=== PATIENT | female | born 1935 | race Caucasian/White ===

== ENCOUNTER 2016-06-19 10:53 | Inpatient (IN) | payer OTHER, MEDICARE ==
[~2016-06-19] VITALS: Ht 152.4 cm; Wt 62.0 kg
[~2016-06-19 10:53] MED LIST: ACET160S78 PEG; FERR220E9 PEG; NUTR1.2L PEG; NXM/40 PEG; ZLF/100 PEG; ZNTL PEG; [UNRECOGNIZED DRUG - CODE] PEG
--- NOTE | 2016-06-19 11:48 | DIAGNOSTIC IMAGING REPORT ---
SINGLE VIEW CHEST CLINICAL HISTORY: Sepsis. FINDINGS: An AP, portable, upright chest radiograph is compared to study dated 08/05/2015. The examination is severely degraded by portable technique and patient rotation. The heart is mildly enlarged and there is atherosclerotic calcification of the thoracic aorta. There is pulmonary vascular congestion. Chronic elevation right hemidiaphragm and bibasilar atelectasis are similar to previous. Foci of linear atelectasis versus scarring are seen in the left midlung. No large pleural effusion or pneumothorax is seen. The skeletal structures are osteopenic. Chronic posttraumatic deformity and postoperative change are identified in the left humerus. Degenerative change is also seen in the shoulders. A ventriculoperitoneal shunt catheter traverses the right hemithorax. IMPRESSION: 1. Cardiomegaly with evidence of mild congestive failure. 2. There is no airspace consolidation typical for pneumonia or large pleural effusion. Electronically signed by: Gaetano Pike M.D. 06/19/2016 11:46 AM Dictated Date/Time: 06/19/2016 11:44 AM
[2016-06-19 11:50] LABS: MEAN CORPUSCULAR HGB CONC 32.1 g/dl (32-36)
[2016-06-19 11:58] LABS: HEMATOCRIT 38.3 % (37-47); MEAN CELL VOLUME 81.1 fL (80-100); MEAN CORPUSCULAR HEMOGLOBIN 26.1 pg (25-34); RED BLOOD COUNT 4.72 M/uL (4.2-5.4)
[2016-06-19 12:08] LABS: PLATELET COUNT 108 K/uL (130-400)
[2016-06-19 12:09] LABS: BUN/CREATININE RATIO 47.7 (10-20); CALCIUM 8.9 mg/dl (8.5-10.1); CREATININE 0.48 mg/dl (0.60-1.20); POTASSIUM 3.6 mmol/L (3.5-5.1)
[2016-06-19 12:10] LABS: INR 1.2 (0.9-1.1); PARTIAL THROMBOPLASTIN RATIO 1.1; PROTHROMBIN TIME (PATIENT) 13.2 SECONDS (9.0-12.0)
[2016-06-19 12:11] LABS: BASO % 0.2 %; BASO ABS # 0.02 K/uL (0-0.2); COMPLETE YES; EOS % 0.1 %; IG% 0.8 %; LYMPH % 5.2 %; LYMPH ABS # 0.53 K/uL (1.2-3.4); MONO % 4.1 %; NEUT % 89.6 %; OVALOCYTES 1+; PLT ESTIMATE DECREASED
[2016-06-19 12:12] LABS: ALB/GLOB RATIO 1.1 (0.9-2)
--- NOTE | 2016-06-19 12:21 | DIAGNOSTIC IMAGING REPORT ---
CT SCAN OF THE BRAIN WITHOUT IV CONTRAST CLINICAL HISTORY: Change in mental status. COMPARISON STUDY: Prior CT scans of the brain, most recently dated 07/07/2015. TECHNIQUE: Unenhanced axial CT scan of the brain is performed from the vertex to the skull base. The examination is significantly degraded by motion artifact. The skull base was scanned twice. FINDINGS: Brain parenchyma: A right posterior parietal approach ventricular shunt catheter is unchanged in position. The tip terminates in the frontal horn of the left lateral ventricle. There are age-related involutional changes noting advanced confluent subcortical and periventricular microangiopathic change. A calcified mass lesion at the skull base on the right at the level of the foramen magnum is unchanged and measures 2.8 x 2.8 cm. This causes mass effect on the adjacent brainstem. Right cerebellar encephalomalacia is unchanged. There is no hemorrhage or evidence of acute territorial ischemia by CT criteria. Yin-white matter is preserved. No extra-axial fluid collection is seen. Ventricles, sulci, cisterns: Prominent secondary to involutional change. Intracranial vasculature: There is atherosclerotic calcification of the cavernous carotid and vertebral arteries. Calvarium: A right posterior parietal jose hole is noted. Again seen are changes from occipital craniectomy. Sinuses and mastoids: Air-fluid levels are noted in the sphenoid sinuses and the maxillary antra. The remaining visualized paranasal sinuses are clear. There is a right mastoid effusion. The left mastoid air cells are well pneumatized. Orbits: The bony orbits are grossly intact. IMPRESSION: 1. Motion degraded examination. There has been no significant change from the 07/07/2015 examination. 2. Postoperative changes as above with a right posterior parietal approach ventriculostomy catheter that is unchanged in position. Ventricular caliber is stable. 3. Unchanged appearance of a calcified mass lesion at the right skull base at the level of the foramen magnum causing mass effect on the adjacent brainstem. This is consistent with patient's known meningioma. 4. Senescent changes as above with no hemorrhage, mass effect, or evidence of acute territorial ischemia by CT criteria. 5. Right mastoid effusion. 6. Air-fluid levels are seen in the maxillary and sphenoid sinuses. Electronically signed by: Gaetano Pike M.D. 06/19/2016 12:20 PM Dictated Date/Time: 06/19/2016 12:16 PM
[2016-06-19] MEDS ORDERED: FUROSEMIDE 40 MG/4 ML VIAL IV STA (12:34)
[2016-06-19] MEDS ORDERED: ALBUT/IPRATROP 3MG/0.5MG NEB 3 ML VIAL INH STA (12:38)
--- NOTE | 2016-06-19 12:43 | DIAGNOSTIC IMAGING REPORT ---
CT SCAN OF THE ABDOMEN AND PELVIS WITHOUT IV CONTRAST CLINICAL HISTORY: Generalized abdominal pain. Abdominal distention and fever. COMPARISON STUDY: Abdominal CT dated 08/24/2014. TECHNIQUE: CT scan of the abdomen and pelvis is performed from the lung bases to the proximal femora. Images are reviewed in the axial, sagittal, and coronal planes. IV contrast was not administered for this examination as per the referring clinician. Note that the examination was performed in significantly suboptimal fashion without oral and IV contrast. The examination is also degraded by motion as well as streak artifact from the patient's arms which could not be elevated above the abdomen. Automated dose control exposure was utilized. CT DOSE: 1592.33 mGy.cm FINDINGS: Lung bases: The heart is normal in size and there is trace pericardial effusion. The coronary arteries and mitral annulus are densely calcified. There is diminished attenuation of the cardiac blood pool as compared to the myocardium suggesting anemia. Evaluation of the lung bases is degraded by motion artifact. There is a trace left pleural effusion. Bilateral airspace opacities are identified, left to right. This is similar appearance to the 08/24/2014 examination. There is chronic elevation of the left hemidiaphragm. There is a small to moderate hiatal hernia. Liver: The unenhanced liver is normal in size, contour, and attenuation. There is no intrahepatic biliary ductal dilatation. Gallbladder: Calcified gallstones are identified. Spleen: Normal in size and attenuation. Pancreas: Atrophic and grossly unremarkable. Adrenal glands: Unremarkable. Kidneys: The unenhanced kidneys are atrophic and without hydronephrosis. Staghorn calculus in the left kidney is unchanged from 2015. No right renal calculi are seen. A 4.5 cm cyst is noted in the right kidney. A 2.3 cm exophytic cyst arises from the left lower pole. Abdominal vasculature: There is advanced atherosclerotic calcification and ectasia of the abdominal aorta. Bowel: A percutaneous gastrostomy tube is present in the distal stomach/proximal duodenum. No bowel obstruction is seen. There is rectosigmoid fecal impaction. Mild rectal wall thickening is noted and there is mild perirectal stranding. There is moderate diverticulosis of left colon without CT evidence of acute diverticulitis. The appendix is clearly visualized. Peritoneum: There is no intraperitoneal free air or abdominal ascites. A ventriculoperitoneal shunt catheter is coiled in the right upper quadrant. Lymphadenopathy: None. Pelvic viscera: Layering hyperdense material within the bladder likely represents numerous stones. The bladder wall appears slightly trabeculated. The uterus is surgically absent. No adnexal lesion is seen. A small fat-containing left inguinal hernia is identified. Skeletal structures: The skeletal structures are markedly osteopenic. There is moderate lumbosacral spondylosis. Compression deformities are seen at all levels from T9 through L4. No lytic or blastic lesions are seen. IMPRESSION: 1. Significant suboptimal examination without oral and IV contrast. The examination is also degraded by streak and motion artifact. 2. There is rectosigmoid fecal impaction. Mild perirectal stranding is noted. Correlate clinically for evidence of stercoral proctitis. 3. Moderate colonic diverticulosis without CT evidence of acute diverticulitis. 4. There is a trace left pleural effusion and bibasilar airspace opacities. These are similar to the 2015 examination. This could represent chronic scarring/fibrosis versus an infectious/inflammatory pneumonitis. Clinical correlation will be required. 5. A ventriculoperitoneal shunt catheter is coiled in the right upper quadrant. 6. Cholelithiasis. 7. A staghorn calculus is seen in the left kidney. Layering hyperdense debris within the bladder lumen likely represents numerous calculi, and these findings are unchanged from 2015. 8. Additional changes as above. Electronically signed by: Gaetano Pike M.D. 06/19/2016 12:42 PM Dictated Date/Time: 06/19/2016 12:28 PM
[2016-06-19 13:01] LABS: URINE APPEARANCE CLOUDY (CLEAR); URINE BILIRUBIN NEG (NEG); URINE COLOR YELLOW; URINE EPITHELIAL CELL AUTO >30 /lpf (0-5); URINE NITRITE POS (NEG); URINE PH 7.5 (4.5-7.5); URINE SPECIFIC GRAVITY 1.016 (1.000-1.030); UROBILINOGEN NEG (NEG); ZZURINE CULT IF INDIC CATH YES
[2016-06-19 13:07] LABS: MANUAL MICROSCOPIC REQUIRED? NO; REVIEW REQ? YES
[2016-06-19 13:08] LABS: SULFASALICYLIC ACID POS (NEG)
[2016-06-19] MEDS ORDERED: PIPERACILLIN/TAZOBACTAM 4.5 GM/100ML D5W IV STA (13:09)
--- NOTE | 2016-06-19 14:44 | EMERGENCY ROOM VISIT NOTE ---
History Report prepared by Lorenzo: Abbey Uriarte Under the Supervision of: Dr. Chris Hebert M.D. First contact with patient: 11:09 Chief Complaint: RESPIRATORY PROBLEMS Stated Complaint: TROUBLE BREATHING History of Present Illness The patient is an 80 year old female who presents to the Emergency Room with complaints of persistent respiratory problems that began today. Per the patient 's daughter, the patient has a history of a brain tumor and has been aphasic for the past year. She states that the patient had a surgery in 1998 for the brain tumor. The patient's daughter states that she had another surgery in 2004 that did not go well. She states that the patient has been bedridden since that surgery. The patient's daughter notes that the patient occasionally wiggles her toes, but does not move her limbs any further. She notes that the patient has had labored breathing today. The patient's daughter notes that all day yesterday the patient had a fever of 102 degrees Fahrenheit and was less responsive than normal. She states that typically the patient has her eyes open , but states that the patient's eyes have been closed. The patient's daughter notes that the patient has had a low-grade fever today of 100.3 degrees Fahrenheit. She states that the patient has had an increased cough, but states that when she has suctioned the patient's mouth she didn't bring much up. The patient's daughter denies the patient having any recent sick contacts. She additionally voices concern regarding the patient's abdominal distension. The patient's daughter notes that the patient has a history of arthritis and COPD, and states that the patient was a previous smoker. She states that the patient receives breathing treatment four times per day and states that the patient is on 2.5 mg of Prednisone daily. The patient's daughter states that the patient urinates on her own. She additionally notes that the patient wears 2 liters of supplemental oxygen daily. Source of History: family (daughter) History Limited By: other (Aphasia) Onset: today Position: other (global) Quality: other (respiratory problems) Timing: other (persistent) Associated Symptoms: + cough, + fevers Note: Associated Symptoms: abdominal distension. Review of Systems Limited due to aphasia. Past Medical & Surgical Medical Problems: (1) BRAIN NEOPLASM NOS (2) CYST OF KIDNEY, ACQUIRED (3) ESOPHAGEAL REFLUX (4) G tube feedings (5) HYPERTENSION NOS (6) IRON DEFIC ANEMIA NOS Family History Diabetes mellitus Social History Smoking Status: Former Smoker Alcohol Use: none Drug Use: none Marital Status: Housing Status: lives with family Occupation Status: retired, disabled Current/Historical Medications Scheduled Esomeprazole Magnesium (Nexium), 40 MG PEG BID Ferrous Sulfate (Ferrous Sulfate), 5 ML PEG BID Prednisolone Sod Phos (Prednisolone Sodium Phosp), 2.5 ML PEG QAM Ranitidine HCl (Ranitidine HCl), 20 ML PEG HS Sertraline HCl (Sertraline HCl), 100 MG PEG QAM Allergies Coded Allergies: Fluconazole (Verified Allergy, Intermediate, ?RASH-PT ALSO ON VANCO, ) Vancomycin (Verified Adverse Reaction, Intermediate, ?RASH,?JESSE SYNDROME-PT ALSO ON DIFLUCAN, 06/19/16) Physical Exam Vital Signs Date Time Temp Pulse Resp B/P Pulse Ox O2 Delivery O2 Flow Rate FiO2 06/19/16 13:35 86 22 190/97 92 Nasal Cannula 3.0 06/19/16 12:36 91 Nasal Cannula 4.0 06/19/16 12:35 89 Nasal Cannula 2.0 06/19/16 12:27 83 22 201/107 93 Nasal Cannula 2.0 06/19/16 11:37 87 06/19/16 11:14 97 Nasal Cannula 2.0 06/19/16 11:11 97 Nasal Cannula 2.0 06/19/16 10:58 36.9 90 24 184/98 94 Room Air Physical Exam Limited examination due to condition of the patient. Constitutional: Vital signs reviewed. Eyes: The patient will not open her eyes. Unable to open her eyes and visualize pupils. ENT: Mucous membranes are slightly dry. Respiratory: Scattered rhonchi bilaterally. Breath sounds are equal bilaterally. Cardiovascular: Regular rate and rhythm. No rubs or gallops. GI: Soft, nondistended and nontender. Bowel sounds are present. Musculoskeletal: Contractures. Integumentary: No cyanosis. Neurological: The patient does not respond to commands. Contractures in the extremities. Psychiatric: Unable to assess. Medical Decision & Procedures ER Provider Diagnostic Interpretation: Radiology results as stated below per my review and the radiologist's interpretation: CT SCAN OF THE BRAIN WITHOUT IV CONTRAST CLINICAL HISTORY: Change in mental status. COMPARISON STUDY: Prior CT scans of the brain, most recently dated 07/07/2015. TECHNIQUE: Unenhanced axial CT scan of the brain is performed from the vertex to the skull base. The examination is significantly degraded by motion artifact. The skull base was scanned twice. FINDINGS: Brain parenchyma: A right posterior parietal approach ventricular shunt catheter is unchanged in position. The tip terminates in the frontal horn of the left lateral ventricle. There are age-related involutional changes noting advanced confluent subcortical and periventricular microangiopathic change. A calcified mass lesion at the skull base on the right at the level of the foramen magnum is unchanged and measures 2.8 x 2.8 cm. This causes mass effect on the adjacent brainstem. Right cerebellar encephalomalacia is unchanged. There is no hemorrhage or evidence of acute territorial ischemia by CT criteria. Yin-white matter is preserved. No extra-axial fluid collection is seen. Ventricles, sulci, cisterns: Prominent secondary to involutional change. Intracranial vasculature: There is atherosclerotic calcification of the cavernous carotid and vertebral arteries. Calvarium: A right posterior parietal jose hole is noted. Again seen are changes from occipital craniectomy. Sinuses and mastoids: Air-fluid levels are noted in the sphenoid sinuses and the maxillary antra. The remaining visualized paranasal sinuses are clear. There is a right mastoid effusion. The left mastoid air cells are well pneumatized. Orbits: The bony orbits are grossly intact. IMPRESSION: 1. Motion degraded examination. There has been no significant change from the 07/07/2015 examination. 2. Postoperative changes as above with a right posterior parietal approach ventriculostomy catheter that is unchanged in position. Ventricular caliber is stable. 3. Unchanged appearance of a calcified mass lesion at the right skull base at the level of the foramen magnum causing mass effect on the adjacent brainstem. This is consistent with patient's known meningioma. 4. Senescent changes as above with no hemorrhage, mass effect, or evidence of acute territorial ischemia by CT criteria. 5. Right mastoid effusion. 6. Air-fluid levels are seen in the maxillary and sphenoid sinuses. Electronically signed by: Gaetano Pike M.D. 06/19/2016 12:20 PM Dictated Date/Time: 06/19/2016 12:16 PM SINGLE VIEW CHEST CLINICAL HISTORY: Sepsis. FINDINGS: An AP, portable, upright chest radiograph is compared to study dated 08/05/2015. The examination is severely degraded by portable technique and patient rotation. The heart is mildly enlarged and there is atherosclerotic calcification of the thoracic aorta. There is pulmonary vascular congestion. Chronic elevation right hemidiaphragm and bibasilar atelectasis are similar to previous. Foci of linear atelectasis versus scarring are seen in the left midlung. No large pleural effusion or pneumothorax is seen. The skeletal structures are osteopenic. Chronic posttraumatic deformity and postoperative change are identified in the left humerus. Degenerative change is also seen in the shoulders. A ventriculoperitoneal shunt catheter traverses the right hemithorax. IMPRESSION: 1. Cardiomegaly with evidence of mild congestive failure. 2. There is no airspace consolidation typical for pneumonia or large pleural effusion. Electronically signed by: Gaetano Pike M.D. 06/19/2016 11:46 AM Dictated Date/Time: 06/19/2016 11:[address] SCAN OF THE ABDOMEN AND PELVIS WITHOUT IV CONTRAST CLINICAL HISTORY: Generalized abdominal pain. Abdominal distention and fever. COMPARISON STUDY: Abdominal CT dated 08/24/2014. TECHNIQUE: CT scan of the abdomen and pelvis is performed from the lung bases to the proximal femora. Images are reviewed in the axial, sagittal, and coronal planes. IV contrast was not administered for this examination as per the referring clinician. Note that the examination was performed in significantly suboptimal fashion without oral and IV contrast. The examination is also degraded by motion as well as streak artifact from the patient's arms which could not be elevated above the abdomen. Automated dose control exposure was utilized. CT DOSE: 1592.33 mGy.cm FINDINGS: Lung bases: The heart is normal in size and there is trace pericardial effusion. The coronary arteries and mitral annulus are densely calcified. There is diminished attenuation of the cardiac blood pool as compared to the myocardium suggesting anemia. Evaluation of the lung bases is degraded by motion artifact. There is a trace left pleural effusion. Bilateral airspace opacities are identified, left to right. This is similar appearance to the 08/24/2014 examination. There is chronic elevation of the left hemidiaphragm. There is a small to moderate hiatal hernia. Liver: The unenhanced liver is normal in size, contour, and attenuation. There is no intrahepatic biliary ductal dilatation. Gallbladder: Calcified gallstones are identified. Spleen: Normal in size and attenuation. Pancreas: Atrophic and grossly unremarkable. Adrenal glands: Unremarkable. Kidneys: The unenhanced kidneys are atrophic and without hydronephrosis. Staghorn calculus in the left kidney is unchanged from 2015. No right renal calculi are seen. A 4.5 cm cyst is noted in the right kidney. A 2.3 cm exophytic cyst arises from the left lower pole. Abdominal vasculature: There is advanced atherosclerotic calcification and ectasia of the abdominal aorta. Bowel: A percutaneous gastrostomy tube is present in the distal stomach/proximal duodenum. No bowel obstruction is seen. There is rectosigmoid fecal impaction. Mild rectal wall thickening is noted and there is mild perirectal stranding. There is moderate diverticulosis of left colon without CT evidence of acute diverticulitis. The appendix is clearly visualized. Peritoneum: There is no intraperitoneal free air or abdominal ascites. A ventriculoperitoneal shunt catheter is coiled in the right upper quadrant. Lymphadenopathy: None. Pelvic viscera: Layering hyperdense material within the bladder likely represents numerous stones. The bladder wall appears slightly trabeculated. The uterus is surgically absent. No adnexal lesion is seen. A small fat-containing left inguinal hernia is identified. Skeletal structures: The skeletal structures are markedly osteopenic. There is moderate lumbosacral spondylosis. Compression deformities are seen at all levels from T9 through L4. No lytic or blastic lesions are seen. IMPRESSION: 1. Significant suboptimal examination without oral and IV contrast. The examination is also degraded by streak and motion artifact. 2. There is rectosigmoid fecal impaction. Mild perirectal stranding is noted. Correlate clinically for evidence of stercoral proctitis. 3. Moderate colonic diverticulosis without CT evidence of acute diverticulitis. 4. There is a trace left pleural effusion and bibasilar airspace opacities. These are similar to the 2015 examination. This could represent chronic scarring/fibrosis versus an infectious/inflammatory pneumonitis. Clinical correlation will be required. 5. A ventriculoperitoneal shunt catheter is coiled in the right upper quadrant. 6. Cholelithiasis. 7. A staghorn calculus is seen in the left kidney. Layering hyperdense debris within the bladder lumen likely represents numerous calculi, and these findings are unchanged from 2015. 8. Additional changes as above. Electronically signed by: Gaetano Pike M.D. 06/19/2016 12:42 PM Dictated Date/Time: 06/19/2016 12:28 PM Laboratory Results 06/19/16 11:25 Red Blood Count 4.72, Mean Corpuscular Volume 81.1, Mean Corpuscular Hemoglobin 26.1, Mean Corpuscular Hemoglobin Concent 32.1, Neutrophils (%) (Auto) 89.6, Lymphocytes (%) (Auto) 5.2, Monocytes (%) (Auto) 4.1, Eosinophils (%) (Auto) 0.1 , Basophils (%) (Auto) 0.2, Neutrophils # (Auto) 9.14, Lymphocytes # (Auto) 0.53 , Monocytes # (Auto) 0.42, Eosinophils # (Auto) 0.01, Basophils # (Auto) 0.02 06/19/16 11:25 Test 06/19/16 11:25 06/19/16 11:29 06/19/16 11:31 06/19/16 11:45 White Blood Count 10.20 K/uL (4.8-10.8) Red Blood Count 4.72 M/uL (4.2-5.4) Hemoglobin 12.3 g/dL (12.0-16.0) Hematocrit 38.3 % (37-47) Mean Corpuscular Volume 81.1 fL (80-100) Mean Corpuscular Hemoglobin 26.1 pg (25-34) Mean Corpuscular Hemoglobin Concent 32.1 g/dl (32-36) Platelet Count 108 K/uL (130-400) Neutrophils (%) (Auto) 89.6 % Lymphocytes (%) (Auto) 5.2 % Monocytes (%) (Auto) 4.1 % Eosinophils (%) (Auto) 0.1 % Basophils (%) (Auto) 0.2 % Neutrophils # (Auto) 9.14 K/uL (1.4-6.5) Lymphocytes # (Auto) 0.53 K/uL (1.2-3.4) Monocytes # (Auto) 0.42 K/uL (0.11-0.59) Eosinophils # (Auto) 0.01 K/uL (0-0.5) Basophils # (Auto) 0.02 K/uL (0-0.2) RDW Standard Deviation 53.8 fL (36.4-46.3) RDW Coefficient of Variation 18.1 % (11.5-14.5) Immature Granulocyte % (Auto) 0.8 % Immature Granulocyte # (Auto) 0.08 K/uL (0.00-0.02) Platelet Estimate DECREASED Ovalocytes 1+ Prothrombin Time 13.2 SECONDS (9.0-12.0) Prothromb Time International Ratio 1.2 (0.9-1.1) Activated Partial Thromboplast Time 27.6 SECONDS (21.0-31.0) Partial Thromboplastin Ratio 1.1 Anion Gap 5.0 mmol/L (3-11) Est Creatinine Clear Calc Drug Dose 80.0 ml/min Estimated GFR () 105.9 Estimated GFR (Non- 91.4 BUN/Creatinine Ratio 47.7 (10-20) Calcium Level 8.9 mg/dl (8.5-10.1) Total Bilirubin 0.8 mg/dl (0.2-1) Aspartate Amino Transf (AST/SGOT) 12 U/L (15-37) Alanine Aminotransferase (ALT/SGPT) 23 U/L (12-78) Alkaline Phosphatase 96 U/L (45-117) Total Protein 6.8 gm/dl (6.4-8.2) Albumin 3.5 gm/dl (3.4-5.0) Globulin 3.3 gm/dl (2.5-4.0) Albumin/Globulin Ratio 1.1 (0.9-2) Bedside Lactic Acid Venous 1.14 mmol/L (0.90-1.70) Bedside Troponin I 0.000 ng/ml (0-0.045) HC-Ipn-Z-Type Natriuretic Peptide 1988 pg/ml (0-1800) Influenza Type A Antigen Neg for Influ A (NEG) Influenza Type B Antigen Neg for Influ B (NEG) Test 06/19/16 12:23 Urine Color YELLOW Urine Appearance CLOUDY (CLEAR) Urine pH 7.5 (4.5-7.5) Urine Specific [place] 1.016 (1.000-1.030) Urine Protein 1+ (NEG) Urine Glucose (UA) NEG (NEG) Urine Ketones NEG (NEG) Urine Occult Blood 3+ (NEG) Urine Nitrite POS (NEG) Urine Bilirubin NEG (NEG) Urine Urobilinogen NEG (NEG) Urine Leukocyte Esterase MODERATE (NEG) Urine WBC (Auto) 1-5 /hpf (0-5) Urine RBC (Auto) 10-30 /hpf (0-4) Urine Hyaline Casts (Auto) 1-5 /lpf (0-5) Urine Epithelial Cells (Auto) >30 /lpf (0-5) Urine Bacteria (Auto) 4+ (NEG) Urine Renal Epithelial Cells /lpf (0-5) Urine Yeast (Auto) (NONE PRSENT) Laboratory results as reviewed by me. Medications Administered Medications (Trade) Dose Ordered Sig/Lena Route Start Time Stop Time Status Last Admin Dose Admin Furosemide (Lasix Inj) 40 mg NOW STAT IV 06/19/16 12:34 06/19/16 12:36 DC 06/19/16 12:43 40 MG Albuterol/ Ipratropium (Duoneb) 3 ml NOW STAT INH 06/19/16 12:38 06/19/16 12:39 DC 06/19/16 12:44 3 ML Piperacillin Sod/ Tazobactam Sod (Zosyn Iv) 4.5 gm NOW STAT IV 06/19/16 13:09 06/19/16 13:10 DC 06/19/16 13:29 4.5 GM ECG Indication: SOB/dyspnea Rate (beats per minute): 87 Rhythm: normal sinus Findings: nonspecific-ST abn (Lead 1 and AVL), no ectopy ED Course 1111: The patient was evaluated in room C3. A complete history and physical exam was performed. 1234: Ordered Lasix Inj 40 mg IV. 1237: I reevaluated the patient and she de-statted to 89% on 2L. She was placed on 4L at this time. 1238: Ordered Duoneb 3 ml INH. 1304: Per nursing staff, the patients family does not wish for the patient to stay in the hospital for further evaluation because they are worried about the care she is going to receive. I am going to talk to the patients family. 1309: I reevaluated the patient and I talked to the family at this time. They agreed to the patient to be evaluated for further treatment. Ordered Zosyn IV 4.5 gm IV. 1326: I discussed the patients case with Dr. Henry [facility]. He is going to evaluate the patient for further treatment. Medical Decision This is an 80-year-old female who presents with altered mental status, fever and difficulty breathing. Differential diagnosis includes sepsis, pneumonia, COPD exacerbation, UTI, intracranial hemorrhage, metabolic derangement. I did perform a limited focused review of portions of the patient's old chart on the electronic medical record. The patient has had no recent pertinent visits to this hospital. I did evaluate the patient as noted above. I did obtain history from the patient's family due to her chronic aphasia. She is presenting with increased difficulty breathing today as well as fevers up to 102. She has been coughing. IV access was established. The patient was placed on a continuous cardiac surgeon. I did treat her with a DuoNeb. I did order and personally review the patient's 12-lead EKG and chest x-ray as described above. She appears to have CHF on chest x-ray but no signs of pneumonia. I did treat her with Lasix IV. Blood cultures were ordered. I did order and review the patient's blood work as noted in the electronic medical record. Her BNP is elevated. Troponin is negative. I did order a CT of the head, abdomen and pelvis. I did review the images myself as well as the radiology report as described above. She does have constipation as well as bibasilar infiltrates in the lower lungs. Her urinalysis shows signs of infection. A urine culture was sent. I did treat the patient with IV Zosyn. I did discuss the test results with the patient's family. Her rhonchi improved but her oxygen level was only 89% on 2 L. She did respond to 4 L. I did recommend hospitalization for further care and evaluation. I did discuss the case with the hospitalist and watch case polisher. Consults Time Called: 1314 Consulting Physician: MARIEL Gonzalez Returned Call: 1326 I discussed the patients case with MARIEL Gonzalez. He is going to evaluate the patient for further treatment. Impression Primary Impression: Hypoxia Additional Impressions: CHF (congestive heart failure) UTI (urinary tract infection) Constipation Pneumonia Scribe Attestation The scribe's documentation has been prepared under my direct and personally reviewed by me in its entirety. I confirm that the note above accurately reflects all work, treatment, procedures, and medical decision making performed by me. Departure Information Dispostion Being Evaluated By Hospitalist Referrals Marcell Arellano PA-C (PCP) Problem Qualifiers Additional Impressions: CHF (congestive heart failure) Congestive heart failure type: unspecified congestive heart failure type Congestive heart failure chronicity: unspecified congestive heart failure chronicity Qualified Codes: I50.9 - Heart failure, unspecified UTI (urinary tract infection) Urinary tract infection type: site unspecified Hematuria presence: without hematuria Qualified Codes: N39.0 - Urinary tract infection, site not specified Constipation Constipation type: unspecified constipation type Qualified Codes: K59.00 - Constipation, unspecified Pneumonia Pneumonia type: due to unspecified organism Laterality: bilateral Lung location: unspecified part of lung Qualified Codes: J18.9 - Pneumonia, unspecified organism
[2016-06-19] MEDS ORDERED: ONDANSETRON INJ 2 MG/ML 2 ML VIAL IV PRN (15:00)
[2016-06-19] MEDS ORDERED: POLYETHYLENE (MIRALAX) 17 GM PACK PO PRN (15:00)
[2016-06-19] MEDS ORDERED: ACETAMINOPHEN 325 MG TAB PO PRN (15:00)
--- NOTE | 2016-06-19 15:16 | History and Physical ---
History & Physical Date of Service Jun 19, 2016. History & Physical uti, possible mild sepsis chf exac has consult palliative for goal of care, and POLST [id number]
[2016-06-19] MEDS ORDERED: PIPERACILL/TAZOBAC CONSULT ACTIVE PRN (15:30)
--- NOTE | 2016-06-19 16:23 | HISTORY & PHYSICAL EXAMINATION ---
DATE OF ADMISSION: 06/19/2016 This is a level 3 inpatient admission, 35 minutes. CHIEF COMPLAINT: Lethargic, More difficulty breathing, fever. 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 Per family, the patient has been paralyzed more than 11 years secondary to meningioma. She has been bedridden, nonverbal conditions. She was able to open eyes 2 days ago, for now she is not open eyes, she was having fever of home, more labored breathing, there was wheezing, therefore the family send her to the hospital Emergency Room. The medical information and history is obtained from daughter and granddaughter at the bedside. They report used to occasionally wiggles her toes but does not move her limbs any further. Family found the more labored breathing today. Fever up to 102 yesterday, has been less responsive for more than 2 days. Recently has been increased cough but there is no emesis. No sputum coming up. The patient has chronic incontinence, family do not want to be on Pepe catheter at home. They are concerned about abdominal distention, no bowel movement for 2 days. In the Emergency Room, the patient was found to have possible CHF exacerbation with an elevated BNP and mild lung congestions per chest x-ray. When I interviewed with the patient, the patient was unresponsive, nonverbal, closed her eyes, mild labored breathing, oxygen is on, not able to have review of systems, with help of the family the review of systems is also very limited, like I mentioned she was having fever of home, no emesis or vomiting, PEG tube feeding has been going on, has no issues, reported has constipation, family did report emesis x3 with blood vomitus about several weeks ago. No more emesis of the bloody vomitus for 2 or 3 weeks, family also reported has some mucus discharge from possible vagina, no blood. PAST MEDICAL HISTORY: Like I mentioned in the above, also includes meningioma with removal in 1998 and recurrence in 2004 which was unable to remove, remote history of diabetic, currently on PEG tube feeding, history of aspiration pneumonitis, history of left humerus fracture, spastic quadriplegia. PAST SURGICAL HISTORY: Include hysterectomy, recurrent UTI, left staghorn calculus. ALLERGIES: ALLERGY TO FLUCONAZOLE AND VANCOMYCIN, SOCIAL HISTORY: Taken care by several family members, quit smoking in 2004, not have any bedsores. FAMILY HISTORY: Noncontributory REVIEW OF SYSTEMS: Please see HPI. Like I mentioned in the above. CURRENT MEDICATIONS: Taking at home which includes 1. Nexium 40 mg per PEG tube b.i.d. 2. Ferrous sulfate 5 mL per PEG tube b.i.d. 3. Prednisolone sodium 2.5 mL p.o. q.a.m. 4. Ranitidine 20 mL p.o. per PEG tube at bedtime. 5. Sertraline 100 mg per PEG tube q.a.m. PHYSICAL EXAMINATION: VITAL SIGNS: Temperature is 36.9, pulse 98, respiration rate 24 initially, currently is 24; blood pressure 184/98, currently is 190/97. Oxygen saturation is 92% on 3 liter. Vital signs reviewed. GENERAL: No open eyes, looks frail, nonverbal, unresponsive. When I open her eyes pupils was equal, round and responds to light. ENT: Shows mucous membranes mild dry. LUNGS: Bilateral lung there was scattered rhonchi bilaterally, breathing sounds equally. There was dry crackles bilateral lower lung. HEART: Regular rhythm, S1, S2, has no murmur, no gallop. ABDOMEN: Soft, nontender. Bowel sound was positive. SKIN: There was contractures in upper and lower extremities. There was no cyanosis in the skin, NEUROLOGICAL EVALUATION: Does not respond to commands. There was contracture in the lower extremities. PSYCHIATRY: Evaluation not able to assess. LABORATORY STUDIES: WBC 10, hemoglobin 12, platelet 108. PT/INR was 13/1.2. Sodium 141, potassium 3.6, BUN 23, creatinine 0.4. Calcium 8.9, AST 12, ALT 23. Troponin was negative. BNP was 61200. Total protein 6.8, albumin 3.5. UA shows UTI, moderate leukocyte esterase. Influenza A and B was negative. IMAGING STUDIES: 1. Abdominal CT studies which was done in the Emergency Room which shows a significant fecal impaction. Possible has stercoral proctitis. 2. Moderate chronic diverticulosis without CT evidence of diverticulitis. There was trace left pleural effusion and baseline airspace opacity. There was a PLASTER MECHANIC shunt catheter in normal position, in the right upper quadrant, there was cholelithiasis, staghorn calculus is seen in the left kidney. 3. Head CT was done in the Emergency Room the right posterior parietal approaches ventriculostomy catheter that is unchanged in position, unchanged appearance in calcified lesions at the right skull base. This is consistent with the patient's known meningioma. There was no hemorrhage, mass effect, or evidence of acute territorial ischemia by CT criteria. There was right mastoid effusion. ASSESSMENT AND PLAN: An 80-year-old white female with the conditions below: 1. Significant urinary tract infection with fever at home. Possible associated with mild sepsis. 2. Possible mild sepsis which is evidenced by the increased respiratory rate up to 24 , mentally decreased in functioning, and was reported has fever at home and there was no source of infection of urinary tract infection. 3. Possible metabolic encephalopathy with decreased mental status secondary to urinary tract infection. 4. Possible acute on chronic congestive heart failure with rhonchi and mild pulmonary congestion in the chest x-ray and elevated BNP levels. 5. History of chronic staghorn calculus. There was no evidence of renal failure or hydronephrosis. 6. Spastic paralysis due to meningioma. 7. Hydrocephalus history status post PLASTER MECHANIC shunt. 7. Feeding dysfunction, is on PEG tube feeding. PLAN: I discussed with the patient's daughter and granddaughter at the bedside about the care plan. Because of patient's age, and significant medical histories and poor and frail medical health conditions such as history of meningioma with spastic paralyzed and bedridden for more than 11 years, history of recurrent UTI, family request the goal of care will be supportive care, IV antibiotic, IV medication, continue PEG tube feeding, family do not want to have heroic medical invasive procedures such as surgery, scope, EGD, etc. Family requests do not resuscitation. Therefore based on the above conversation I will continue oxygen, Lasix daily, follow electrolytes, Pepe catheter if family agree, will continue Zosyn for UTI, and patient possibly has sepsis as well, will follow up blood culture and urine culture. For the GI prophylaxis will be Protonix, DVT prophylaxis will be heparin, family interested to talk to palliative care toward he direction of the hospice care. Therefore, I will request palliative care consultation. DNR MTDD
[2016-06-19] MEDS ORDERED: PANTOprazole INJ 40 MG in SYRINGE 0 ML IV ONE (17:00)
[2016-06-19 17:04] VITALS: BP 161/89; PULSE 80; TEMP 36.8; O2SAT 96; Ht 152.4 cm; Wt 62.0 kg
[2016-06-19] MEDS ORDERED: POLYETHYLENE (MIRALAX) 17 GM PACK PEG PRN (17:45)
[2016-06-19] MEDS ORDERED: POLYETHYLENE (MIRALAX) 17 GM PACK PO ONE (18:00)
[2016-06-19] MEDS ORDERED: DOCUSATE SODIUM 100 MG/10 ML UDC PEG ONE (18:00)
[2016-06-19] MEDS: ALBUT/IPRATROP 3MG/0.5MG NEB 3 ML VIAL INH SCH ×2 (18:05→19:04)
[2016-06-19 19:05] VITALS: PULSE 87; O2SAT 99
[2016-06-19 19:47] VITALS: BP 164/99; PULSE 89; TEMP 36.8; O2SAT 97
[2016-06-19 20:00] VITALS: O2SAT 95
[2016-06-19] MEDS: DOCUSATE SODIUM 100 MG/10 ML UDC PEG SCH (21:21)
[2016-06-19] MEDS: FERROUS SULFATE ELIX 220MG/5ML PEG SCH (21:21)
[2016-06-19] MEDS: RANITIDINE HCL SYRUP 150 MG/10 ML 480ML PO SCH (21:21)
[2016-06-19] MEDS: HEPARIN SOD 5000 UNIT/0.5 ML CARP SQ SCH (21:41)
[2016-06-19] MEDS: PIPERACILL/TAZOBAC IV 3.375 GM in DEXTROSE 5% 100ML 100 ML IV SCH (22:44)
[2016-06-19 23:37] VITALS: BP 146/84; PULSE 88; TEMP 37.7; O2SAT 100
[2016-06-20] VITALS (10 sets, daily range): BP systolic 132–153; BP diastolic 74–86; PULSE 72–86; TEMP 36.2–37.5; O2SAT 92–100
[2016-06-20 04:49] LABS: BUN/CREATININE RATIO 45.8 (10-20); CALCIUM 8.8 mg/dl (8.5-10.1); CREATININE 0.62 mg/dl (0.60-1.20); POTASSIUM 3.1 mmol/L (3.5-5.1)
[2016-06-20 04:54] LABS: CHOLESTEROL/HDL RATIO 3.5; CKMB/CK RATIO 2.3 (0-3.0)
[2016-06-20] MEDS: PIPERACILL/TAZOBAC IV 3.375 GM in DEXTROSE 5% 100ML 100 ML IV SCH ×3 (06:31→22:10)
[2016-06-20] MEDS: ALBUT/IPRATROP 3MG/0.5MG NEB 3 ML VIAL INH SCH ×4 (07:06→20:12)
[2016-06-20] MEDS: POTASSIUM CHLR 10 MEQ / WTR 10 MEQ in PREMIXED WATER 100 ML IV SCH ×4 (08:46→11:30)
[2016-06-20] MEDS: DOCUSATE SODIUM 100 MG/10 ML UDC PEG SCH ×2 (08:48→21:55)
[2016-06-20] MEDS: prednisoLONE SOD PHOS 5 MG/5 ML GT SCH (08:48)
[2016-06-20] MEDS: FERROUS SULFATE ELIX 220MG/5ML PEG SCH ×2 (08:48→21:55)
[2016-06-20] MEDS: SERTRALINE HCL 100 MG TAB PEG SCH (08:48)
[2016-06-20] MEDS: HEPARIN SOD 5000 UNIT/0.5 ML CARP SQ SCH ×2 (08:57→22:00)
[2016-06-20] MEDS ORDERED: FUROSEMIDE INJ 40 MG in SYRINGE 0 ML IV SCH (09:00)
[2016-06-20] MEDS: PANTOprazole INJ 40 MG in SYRINGE 0 ML IV SCH (10:56)
--- NOTE | 2016-06-20 11:25 | ECHOCARDIOGRAM REPORT ---
*NOTICE TO RECEIVING REPUBLICAN AGENCY This information is strictly Confidential and protected under [place] law. [place] law prohibits you from making any further disclosure of this information unless further disclosure is expressly permitted by the written consent of the person to whom it pertains or is authorized by law. A general authorization for the release of medical or other information is not sufficient for this purpose. Hospital accepts no responsibility if the information is made available to any other person, INCLUDING THE PATIENT. Interpretation Summary * Patient paralyzed, lying tilted to the right side with left arm folded tightly across her chest. * Name: LORAINE DUARTE Study Date: 06/20/2016 09:05 AM BP: 153/78 mmHg * Patient Location: .2T\S\E220\S\1 HR: 87 * : 1935 (M/d/yyyy) Gender: Female Height: 62 in * Age: 80 yrs Ethnicity: [place] Weight: 143 lb * Ordering Physician: Casper Henry * Referring Physician: Self, Referred * Performed By: Abbey Lombardo RDCS * * Reason For Study: CHF * BSA: 1.7 m2 * History: CHF * Hyperdynamic biventricular systolic function. * Biventricular hypertrophy. * No significant valvular regurgitation noted. * Mild aortic stenosis.. * The study was technically difficult. * The study was technically limited. Procedure Details * A contrast injection of Definity was performed to improve assessment of LV function. * Contrast was injected into an intravenous site in the right arm. * One vial of Definity ultrasound contrast was diluted in normal saline to a total volume of 10 ml. A total of '2' ml of solution was administered during imaging. * Lot # [id number] of Definity utilized for procedure. * Expiration date 1 JUN 05. * The attending nurse who injected the contrast agent was ELVER RIVAS RN. Left Ventricle * The left ventricle is normal in size. * There is mild concentric left ventricular hypertrophy. * Ejection Fraction = >70 %. * The left ventricle is hyperdynamic. * A full diastolic examination was done with clinical findings of Class I diastolic dysfunction. * No regional wall motion abnormalities noted. Right Ventricle * The right ventricle is normal size. * There is mild to moderate right ventricular hypertrophy. * The right ventricle is hyperdynamic. Atria * The left atrium is not well visualized. * Left atrial dimension appears normal. * Right atrium not well visualized. Mitral Valve * The mitral valve is not well visualized. * Significant mitral regurgitation is absent. Tricuspid Valve * The tricuspid valve is not well visualized. Aortic Valve * The aortic valve is not well visualized. * The aortic dajuan appears calcified and to have decreased but adequate opening on 2 D imaging. The velocity and gradient across the valve is mildly increased consistent with mild aortic stenosis. * Mild valvular aortic stenosis. * There is no significant aortic regurgitation. Pulmonic Valve * The pulmonic valve is not well visualized. Pericardium/Pleural * There is no pericardial effusion. MMode 2D Measurements and Calculations LVAd ap4 15.6 cm\S\2 LVLd ap4 6.2 cm EDV(MOD-sp4) 32.2 ml EDV(sp4-el) 33.3 ml LVAs ap4 7.9 cm\S\2 LVLs ap4 5.5 cm ESV(MOD-sp4) 9.7 ml ESV(sp4-el) 9.8 ml EF(MOD-sp4) 69.8 % EF(sp4-el) 70.6 % LVAd ap2 18.6 cm\S\2 LVLd ap2 6.5 cm EDV(MOD-sp2) 43.5 ml EDV(sp2-el) 45.2 ml LVAs ap2 9.7 cm\S\2 LVLs ap2 6.5 cm ESV(MOD-sp2) 12.1 ml ESV(sp2-el) 12.3 ml EF(MOD-sp2) 72.1 % EF(sp2-el) 72.7 % LVLd %diff 4.5 % EDV(MOD-bp) 38.3 ml LVLs %diff 15.1 % ESV(MOD-bp) 11.8 ml EF(MOD-bp) 69.2 % SV(MOD-sp4) 22.5 ml SI(MOD-sp4) 13.6 ml/m\S\2 SV(MOD-sp2) 31.3 ml SI(MOD-sp2) 18.9 ml/m\S\2 SV(MOD-bp) 26.5 ml SI(MOD-bp) 16.0 ml/m\S\2 SV(sp4-el) 23.5 ml SI(sp4-el) 14.2 ml/m\S\2 SV(sp2-el) 32.8 ml SI(sp2-el) 19.8 ml/m\S\2 Doppler Measurements and Calculations MV E max adolfo 48.7 cm/sec MV A max adolfo 134.6 cm/sec MV E/A 0.36 MV dec time 0.19 sec Ao V2 max 192.1 cm/sec Ao max PG 14.8 mmHg Ao max PG (full) 11.9 mmHg LV V1 max PG 2.8 mmHg LV V1 max 84.2 cm/sec
[2016-06-20] MEDS ORDERED: SOD PHOSPHATE/SOD BIPHOSPHATE ENEMA 132 ML BTL PR STA (14:29)
[2016-06-20] MEDS ORDERED: SOD PHOSPHATE/SOD BIPHOSPHATE ENEMA 132 ML BTL PR PRN (14:30)
[2016-06-20] MEDS ORDERED: [UNRECOGNIZED DRUG - OTHER] PRN (15:00)
[2016-06-20] MEDS ORDERED: NURSING VERBAL MED ORDER ONE (16:45)
[2016-06-20] MEDS: CEFTAROLINE FOSAMIL INJ 600 MG in SODIUM CHLORIDE 0.9% 250ML 250 ML IV SCH (17:20)
[2016-06-20] MEDS: FIBERSOURCE HN 1000ML BAG PEG SCH ×2 (17:20)
--- NOTE | 2016-06-20 19:12 | Hospitalist Progress Note ---
Hospitalist Progress Note Date of Service Jun 20, 2016. Subjective Pt evaluation today including: conversation w/ family, physical exam, chart review, lab review, review of studies, conversation w/ product development consultant (ID), review of inpatient medication list PO Intake: PEG tube feeds on hold Pt obtunded and could not obtain history. Reviewed chart and discussed case with daughter, , and other family members at length. Pt has had brainsten compression since 2004 which is progressively worsening to the point where she has been aphasic and can only open and close eyelids, can breathe on her own for the last year. Daughter and other family members take excellent care of her at home. She occasionally gets UTIs and their PCP calls in abx for them. Daughter reports pt doing better today, that her "gurgling noises" are back to her baseline amount. Pt still has not woken up or opened her eyes today and usually she does. No BM yet today and evidence of fecal impaction on CT scan. Brought up idea of Home Hospice with family today and daughter was tearful, says she can't imagine not coming to the hospital if her mom was choking on her own secretions. Discussed benefits of Home Hospice and that secretion management is part of that as well. Pt has a h/o MRSA in nose but no MRSA infections they are aware of. She has severe contractures in all limbs and daughter asks if any medicine can help with the painfulness of her this. Additional Comments: not able to be obtained Objective Vital Signs Date Time Temp Pulse Resp B/P Pulse Ox O2 Delivery O2 Flow Rate FiO2 06/20/16 16:00 Nasal Cannula 2.0 06/20/16 15:55 36.8 85 24 133/80 96 Nasal Cannula 2.0 06/20/16 15:26 84 16 92 Nasal Cannula 2.0 06/20/16 11:43 36.4 85 18 151/84 99 Room Air 06/20/16 11:30 Nasal Cannula 3.0 06/20/16 11:04 72 20 93 Nasal Cannula 2.0 06/20/16 07:52 36.7 86 20 153/78 96 Nasal Cannula 2.0 06/20/16 07:30 Nasal Cannula 3.0 06/20/16 07:06 79 20 93 Nasal Cannula 2.0 06/20/16 04:00 Nasal Cannula 3.0 06/20/16 03:58 36.2 85 21 145/86 100 Nasal Cannula 3.0 06/20/16 01:28 37.5 06/20/16 00:00 Nasal Cannula 3.0 06/19/16 23:37 37.7 88 22 146/84 100 Nasal Cannula 3.0 06/19/16 20:00 95 Nasal Cannula 3.0 06/19/16 19:47 36.8 89 18 164/99 97 Nasal Cannula 3.0 06/19/16 19:05 87 18 99 Nasal Cannula 3.0 Physical Exam General Appearance: + mild distress (lying in bed with mouth agape, tongue protruding, gurgling noises audible, mild tachypnea) Eyes: + pertinent finding (closed and do not open to verbal stimuli) ENT: + pertinent finding (tongue dry and protruding) Neck: trachea midline Respiratory/Chest: no accessory muscle use, + respiratory distress (mild tachypnea, coarse breath sounds throughout especially in upper airways) Cardiovascular: regular rate, rhythm, no edema, no murmur Abdomen: non tender, soft (but mildly distended) Extremities: + pertinent finding (multiple flexion contractures in upper exts and plantarflexion in feet and toes, legs scissored across each other ) Neurologic/Psychiatric: + pertinent finding (obtunded, no spontaneous movement in any extremity, does cough occasionally or make a moaning sound) Skin: normal color, warm/dry, no rash Laboratory Results Last 24 Hours Test 06/19/16 20:17 06/20/16 04:20 06/20/16 16:56 Total Creatine Kinase 25 U/L 26 U/L Creatine Kinase MB 1.0 ng/ml 0.6 ng/ml Creatine Kinase MB Ratio 4.0 2.3 Troponin I 0.022 ng/ml 0.016 ng/ml Sodium Level 141 mmol/L Potassium Level 3.1 mmol/L Chloride Level 97 mmol/L Carbon Dioxide Level 34 mmol/L Anion Gap 10.0 mmol/L Blood Urea Nitrogen 28 mg/dl Creatinine 0.62 mg/dl Est Creatinine Clear Calc Drug Dose 57.0 ml/min Estimated GFR () 97.3 Estimated GFR (Non- 84.0 BUN/Creatinine Ratio 45.8 Random Glucose 162 mg/dl Calcium Level 8.8 mg/dl Triglycerides Level 174 mg/dl Cholesterol Level 152 mg/dl HDL Cholesterol 43 mg/dl LDL Cholesterol, Calculated 74 mg/dl VLDL Cholesterol, Calculated 35 mg/dl Cholesterol/HDL Ratio 3.5 Thyroid Stimulating Hormone (TSH) 0.747 uIu/ml Assessment and Plan An 80-year-old white female with a h/o 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 There was a suspected component of CHF on admission. Sepsis, Acute hypoxemic respiratory failure, acute metabolic encephalopathy, Suspected aspiration PNA and UTI- CXR with CHF but CT Chest shows bilat airspace opacities and with reported thick white sputum being suctioned along with fever and cough. Urine appears infected on UA but is growing mixed orgs on Ur cx. Was given one dose of lasix for suspected CHF but ECHO with hyperdynamic function, no CHF -continue Zosyn and with h/o MRSA in nasal swab, will add Teflaro to cover for MRSA (as per d/w ID Dr. Flowers) -follow BCxs -supplemental O2 -aggressive suctioning, vibration vest -keep HOB at 60 degrees for continuous tube feeds -continue nebs -overall poor prognosis given underlying comorbidities--> d/w family today about home hospice if not improving over the next 1-2 days -Palliative Care consult for Tuesday History of chronic staghorn calculus. There was no evidence of renal failure or hydronephrosis but does put her at risk for recurrent UTIs. Previously on suppressive tx with Bactrim but was stopped for ineffectiveness apparently years ago. -treating for UTI Spastic paralysis/quadriplegia due to meningioma compression on brain stem with h/o hydrocephalus history status post HORTICULTURAL NURSERY ASSISTANT shunt. Has severe contractures. Bedridden x 11 years, nonverbal, progressively worsening function over the last year. -continue supportive care -very poor prognosis and seems to have quite poor QOL -continue PEG tube feeding--will restart now that had a BM -continue docusate, Fleet enema prn Proph- heparin SQ, PPI Dispo-DNR Palliative Care consult-discussed Home Hospice with family today and daughter is not yet open but needs more education on benefits of hospice For the GI prophylaxis will be Protonix, DVT prophylaxis will be heparin, family interested to talk to palliative care toward he direction of the hospice care. Therefore, I will request palliative care consultation. DNR
[2016-06-20] MEDS ORDERED: FIBERSOURCE HN 1000ML BAG PEG SCH ×2 (20:00)
[2016-06-20] MEDS: RANITIDINE HCL SYRUP 150 MG/10 ML 480ML PO SCH (21:54)
[2016-06-21] VITALS (11 sets, daily range): BP systolic 127–149; BP diastolic 73–85; PULSE 68–88; TEMP 36.6–37.2; O2SAT 93–100
[2016-06-21] MEDS: CEFTAROLINE FOSAMIL INJ 600 MG in SODIUM CHLORIDE 0.9% 250ML 250 ML IV SCH (05:32)
[2016-06-21] MEDS: PIPERACILL/TAZOBAC IV 3.375 GM in DEXTROSE 5% 100ML 100 ML IV SCH ×3 (06:36→22:18)
[2016-06-21] MEDS: ALBUT/IPRATROP 3MG/0.5MG NEB 3 ML VIAL INH SCH ×4 (07:32→19:38)
[2016-06-21 07:57] LABS: BUN/CREATININE RATIO 41.8 (10-20); CALCIUM 8.1 mg/dl (8.5-10.1); CREATININE 0.72 mg/dl (0.60-1.20); MAGNESIUM 1.8 mg/dl (1.8-2.4); POTASSIUM 2.5 mmol/L (3.5-5.1)
[2016-06-21] MEDS: DOCUSATE SODIUM 100 MG/10 ML UDC PEG SCH ×2 (08:30→21:25)
[2016-06-21] MEDS: HEPARIN SOD 5000 UNIT/0.5 ML CARP SQ SCH ×2 (08:30→21:27)
[2016-06-21] MEDS: FERROUS SULFATE ELIX 220MG/5ML PEG SCH ×2 (08:31→21:26)
[2016-06-21] MEDS: SERTRALINE HCL 100 MG TAB PEG SCH (08:31)
[2016-06-21] MEDS: prednisoLONE SOD PHOS 5 MG/5 ML GT SCH (08:31)
[2016-06-21] MEDS ORDERED: POTASSIUM CHLR 20 MEQ / WTR 20 MEQ in PREMIXED WATER 100 ML IV STA (09:00)
[2016-06-21] MEDS ORDERED: POTASSIUM CHLORIDE 20 MEQ/15 ML UDC PEG STA (09:00)
[2016-06-21 09:09] LABS: MEAN CORPUSCULAR HGB CONC 32.3 g/dl (32-36)
[2016-06-21 09:15] LABS: HEMATOCRIT 37.5 % (37-47); MEAN CELL VOLUME 79.8 fL (80-100); MEAN CORPUSCULAR HEMOGLOBIN 25.7 pg (25-34); WHITE BLOOD COUNT 11.33 K/uL (4.8-10.8)
--- NOTE | 2016-06-21 09:40 | Clinical Documentation Query ---
JESS VALENTIN : CLINICAL DOCUMENTATION QUERIES QUERY 1 OF 2 Patient is an 80 year old female admitted for evaluation and treatment of sepsis secondary to UTI, aspiration pneumonia, and acute on chronic CHF, not otherwise specified. Subsequent documentation noted "There was a suspected component of CHF on admission". She was treated with supplemental oxygen, IV Lasix, and monitored on telemetry with I/O, daily weights, and evaluated with an echocardiogram. Echo demonstrated hyperdynamic biventricular systolic function. Therefore, as clinically appropriate, please clarify the suspected CHF type as suggested below. In your clinical opinion is this patient being managed for: ( ) Acute on chronic diastolic congestive heart failure on admission, resolved ( ) Other explanation of clinical findings (Please Explain) ( ) Unable to determine (Please Define) ( ) Need to Discuss ( x ) Not Agree-Aspiration PNA, mild decompensated diastolic HF The medical record reflects the following clinical findings, treatment, and risk factors. Clinical Indicators: As above Treatment:She was treated with supplemental oxygen, IV Lasix, and monitored on telemetry with I/O, daily weights, and evaluated with an echocardiogram Risk Factors: Age, infection QUERY 2 OF 2 Documentation includes "the patient wears 2 liters of supplemental oxygen daily". This qualifies as suggested below if you feel this is clinically relevant. In your clinical opinion is this patient being managed for: ( ) Chronic hypoxemic respiratory failure ( ) Other explanation of clinical findings (Please Explain) ( ) Unable to determine (Please Define) ( ) Need to Discuss (x ) Not Agree- Acute on Chronic hypoxemic respiratory failure The medical record reflects the following clinical findings, treatment, and risk factors. Clinical Indicators: As above Treatment: Ongoing continuous oxygen supplementation Risk Factors: Age, quadriplegia due to meningioma compression on brain stem, bedridden Please clarify and document your clinical opinion in the progress notes and discharge summary. Terms such as "probable", "suspected", "likely", "questionable", "possible", or "still to be ruled out" are acceptable. IF IN AGREEMENT, YOU MUST DOCUMENT ABOVE DIAGNOSTIC STATEMENT IN DAILY PROGRESS NOTES AND DISCHARGE SUMMARY. This document is not part of the patient's record. Thank You, Jason Almaraz, ANNETTE [phone]
[2016-06-21] MEDS: POTASSIUM CHLR 10MEQ / WTR IV SCH ×2 (09:47→10:53)
--- NOTE | 2016-06-21 09:47 | Clinical Documentation Query ---
TK Stinson : CLINICAL DOCUMENTATION QUERIES QUERY 1 OF 2 Documentation includes "the patient wears 2 liters of supplemental oxygen daily". This qualifies as suggested below if you feel this is clinically relevant. In your clinical opinion is this patient being managed for: (x ) Chronic hypoxemic respiratory failure ( ) Other explanation of clinical findings (Please Explain) ( ) Unable to determine (Please Define) ( ) Need to Discuss ( ) Not Agree The medical record reflects the following clinical findings, treatment, and risk factors. Clinical Indicators: As above Treatment: Ongoing continuous oxygen supplementation Risk Factors: Age, quadriplegia due to meningioma compression on brain stem, bedridden QUERY 2 OF 2 Patient is an 80 year old female admitted for evaluation and treatment of sepsis secondary to UTI, aspiration pneumonia, and acute on chronic CHF, not otherwise specified. Subsequent documentation noted "There was a suspected component of CHF on admission". She was treated with supplemental oxygen, IV Lasix, and monitored on telemetry with I/O, daily weights, and evaluated with an echocardiogram. Echo demonstrated hyperdynamic biventricular systolic function. Therefore, as clinically appropriate, please clarify the suspected CHF type as suggested below. In your clinical opinion is this patient being managed for: (x ) Acute on chronic diastolic congestive heart failure on admission, resolved ( ) Other explanation of clinical findings (Please Explain) ( ) Unable to determine (Please Define) ( ) Need to Discuss ( ) Not Agree The medical record reflects the following clinical findings, treatment, and risk factors. Clinical Indicators: As above Treatment:She was treated with supplemental oxygen, IV Lasix, and monitored on telemetry with I/O, daily weights, and evaluated with an echocardiogram Risk Factors: Age, infection Please clarify and document your clinical opinion in the progress notes and discharge summary. Terms such as "probable", "suspected", "likely", "questionable", "possible", or "still to be ruled out" are acceptable. IF IN AGREEMENT, YOU MUST DOCUMENT ABOVE DIAGNOSTIC STATEMENT IN DAILY PROGRESS NOTES AND DISCHARGE SUMMARY. This document is not part of the patient's record. Thank You, Jason Almaraz, ANNETTE [phone]
[2016-06-21 09:59] LABS: PLATELET COUNT 109 K/uL (130-400)
[2016-06-21 10:01] LABS: BASO % 0.2 %; BASO ABS # 0.02 K/uL (0-0.2); COMPLETE YES; EOS % 0.5 %; IG% 0.7 %; LYMPH % 4.3 %; LYMPH ABS # 0.49 K/uL (1.2-3.4); MONO % 11.7 %; NEUT % 82.6 %; PLT ESTIMATE DECREASED
--- NOTE | 2016-06-21 10:16 | Medical Consult ---
Consultation Date of Consultation: Jun 21, 2016. Attending Physician: Chris Castillo M.D. Reason for Consultation: PNA/UTI History of Present Illness Patient is an 80-year-old female who presented to the emergency department with complaints via her daughter of worsening respiratory status and abdominal distension prior to admission. The patient has history of brain tumor and surgery which has caused her to be bed ridden and aphasic since that time. History is strictly taken from the patient's chart and previous notes due to her current state. The patient did have a low-grade temperature of 100.3 F at home, increased cough, and increased respiratory rate. Since admission, it was noted that the patient's white blood cell count was normal at 10.20. Her creatinine on admission was 0.48. Her BNP was 2679. Chest x-ray showed no airspace consolidation. Abdominal/pelvic CT scan showed rectosigmoid fecal impaction, perirectal stranding, and a staghorn calculus in the left kidney among other findings. Urine culture showed more than 3 types of organisms present, likely contamination. MRSA nasal swab was negative. Blood cultures have showed no growth to date. The patient is currently on IV ceftaroline and Zosyn. I did speak to Dr. Castillo regarding this patient as well. Past Medical/Surgical History Medical Problems: (1) CHF (congestive heart failure) Status: Acute (2) Constipation Status: Acute (3) Hypoxia Status: Acute (4) Hypoxia Status: Acute (5) Pneumonia Status: Acute (6) Pneumonia Status: Acute (7) Respiratory distress Status: Acute (8) UTI (urinary tract infection) Status: Acute Medical Problems: (1) BRAIN NEOPLASM NOS (2) chf exac, UTI/fever (3) CYST OF KIDNEY, ACQUIRED (4) ESOPHAGEAL REFLUX (5) G tube feedings (6) HYPERTENSION NOS (7) IRON DEFIC ANEMIA NOS Family History Diabetes mellitus Noncontributory Social History Smoking Status: Unknown if Ever Smoked Drug Use: none Marital Status: Housing Status: lives with family Occupation Status: retired, disabled Allergies Coded Allergies: Fluconazole (Verified Allergy, Intermediate, ?RASH-PT ALSO ON VANCO, ) Vancomycin (Verified Adverse Reaction, Intermediate, ?RASH,?JESSE SYNDROME-PT ALSO ON DIFLUCAN, 06/19/16) Home Medications Reported Home Medications Medications Dose Route/Sig Max Daily Dose Days Date Category Dose Instructions Sertraline HCl 100 Mg Tab 100 Mg PEG QAM 07/15/15 Reported Prednisolone Sodium Phosp (Prednisolone Sod Phos) 5 Mg/5 Ml Liqd 2.5 Ml PEG QAM 07/15/15 Reported Ranitidine HCl 150 Mg/10 Ml Syrp 20 Ml PEG HS 11/28/14 Reported Nexium (Esomeprazole Magnesium) 40 Mg Capcr 40 Mg PEG BID 01/05/14 Reported IN 15ML WATER Ferrous Sulfate 220 Mg/5 Ml Elx 5 Ml PEG BID 06/03/13 Reported Current Inpatient Medications Current Inpatient Medications Medications (Trade) Dose Ordered Sig/Lena Route Start Time Stop Time Status Last Admin Dose Admin Heparin Sodium (Porcine) (Heparin Sq 5000 Unit/0.5ml) 5,000 unit Q12 SQ 06/19/16 21:00 07/19/16 20:59 06/21/16 08:30 5,000 UNIT Acetaminophen (Tylenol Tab) 650 mg Q4H PRN PO 06/19/16 15:00 07/19/16 14:59 Ondansetron HCl 4 mg 4 mg Q6H PRN IV 06/19/16 15:00 07/19/16 14:59 Piperacillin Sod/ Tazobactam Sod/ Dextrose (Zosyn Iv/D5 100ml) 115 ml @ 28.75 mls/ hr Q8 IV 06/19/16 22:00 06/24/16 21:59 06/21/16 06:36 28.75 MLS/HR Albuterol/ Ipratropium (Duoneb) 3 ml QIDR INH 06/19/16 16:00 07/19/16 15:59 06/21/16 07:32 3 ML Ferrous Sulfate (Feosol Elix) 220 mg BID PEG 06/19/16 21:00 07/19/16 20:59 06/21/16 08:31 220 MG Prednisolone Sodium Phosphate (Pediapred Oral Soln) 2.5 mg QAM GT 06/20/16 09:00 07/20/16 08:59 06/21/16 08:31 2.5 MG Ranitidine HCl (zANTac SYRUP) 300 mg HS PO 06/19/16 21:00 07/19/16 20:59 06/20/16 21:54 300 MG Sertraline HCl 100 mg 100 mg QAM PEG 06/20/16 09:00 07/20/16 08:59 06/21/16 08:31 100 MG Pantoprazole Sodium/Syringe (Protonix Inj/ Syringe) 10 ml @ 5 mls/min DAILY@11 IV 06/20/16 11:00 07/20/16 10:59 06/20/16 10:56 5 MLS/MIN Piperacillin Sod/ Tazobactam Sod (Consult) 1 ea UD PRN N/A 06/19/16 15:30 07/19/16 15:29 Docusate Sodium (coLACE SYRUP) 100 mg BID PEG 06/19/16 21:00 07/19/16 20:59 06/21/16 08:30 100 MG Polyethylene 17 gm 17 gm DAILY PRN PEG 06/19/16 17:45 07/19/16 17:44 06/20/16 10:56 17 GM Ceftaroline Fosamil/Sodium Chloride (Teflaro Inj/Nss 250ml) 270 ml @ 250 mls/hr Q12H IV 06/20/16 18:00 06/27/16 17:59 06/21/16 05:32 250 MLS/HR Sodium Biphosphate/ Sodium Phosphate (Fleet Enema) 132 ml DAILY PRN WV 06/20/16 14:30 07/20/16 14:29 Miscellaneous Information 1 ea UD PRN N/A 06/20/16 15:00 07/20/16 14:59 Enteral Nutritional Formula 1000 ml 1,000 ml UD PEG 06/20/16 16:45 07/20/16 16:44 06/20/16 17:20 1,000 ML Potassium Chloride/Prmx (Kcl 10 Meq / Wtr/Premixed Water) 100 ml @ 100 mls/hr Q1H IV 06/21/16 09:30 06/21/16 11:29 06/21/16 09:47 100 MLS/HR Review of Systems Unable to obtain ROS due to patient state. Physical Exam Date Time Temp Pulse Resp B/P Pulse Ox O2 Delivery O2 Flow Rate FiO2 06/21/16 08:00 Nasal Cannula 2.0 06/21/16 07:06 85 18 99 Nasal Cannula 2.0 06/21/16 07:04 36.7 82 20 145/78 99 Nasal Cannula 2.0 06/21/16 04:00 Nasal Cannula 2.0 06/21/16 03:51 37.2 78 22 127/73 100 Nasal Cannula 2.0 06/21/16 00:10 37.1 68 21 138/85 98 Nasal Cannula 2.0 06/20/16 23:59 Nasal Cannula 2.0 06/20/16 20:00 Nasal Cannula 2.0 06/20/16 18:55 84 18 94 Nasal Cannula 2.0 06/20/16 18:49 36.8 82 18 132/74 96 Nasal Cannula 2.0 06/20/16 16:00 Nasal Cannula 2.0 06/20/16 15:55 36.8 85 24 133/80 96 Nasal Cannula 2.0 06/20/16 15:26 84 16 92 Nasal Cannula 2.0 06/20/16 11:43 36.4 85 18 151/84 99 Room Air 06/20/16 11:30 Nasal Cannula 3.0 06/20/16 11:04 72 20 93 Nasal Cannula 2.0 General Appearance: + thin, + pertinent finding (Arms contracted, obtunded, nonresponsive) Head: normocephalic Eyes: + pertinent finding (closed, does not open during exam) ENT: + pertinent finding (unable to assess) Neck: trachea midline Respiratory/Chest: + pertinent finding (coarse upper respiratory sounds- difficult to assess) Cardiovascular: regular rate, rhythm Abdomen/GI: normal bowel sounds, + pertinent finding (slight distention) Extremities/Musculoskelatal: + pertinent finding (contracted arms. Legs without edema) Neurologic/Psych: + pertinent finding (nonresponsive to voice, exam, etc) Skin: normal color, warm/dry Laboratory Results RUN DATE: 06/20/16 [facility] LAB PAGE 1 RUN TIME: 1243 Specimen Inquiry PATIENT: LORAINE DUARTE LOC: [facility] U # : [id number] AGE/SX: 80/F ROOM: E220 REG : 06/19/[address]: Zehra Campa MD : [id number] BED: 1 DIS : STATUS: ADM IN TLOC: SPEC #: [id number] RAMÍREZ: 06/19/16-1223 STATUS: COMP REQ #: [id number] RECD: 06/19/16-[address]: Chris Hebert M.D. SOURCE: URINE CATH ENTR: 06/19/16-13[address] [facility] DR: Marcell Arellano PA-CESC: ORDERED: CULTURE UR CATH Procedure Result Verified Site URINE CULTURE Final 06/20/16-1243 MORE THAN THREE TYPES OF ORGANISMS PRESENT, ALL HIGH COUNTS MIXED PROBABLE SKIN MUNIRA - NO FURTHER IDENTIFICATIONS OR SENSITIVITIES TO FOLLOW. Item Value Date Time MRSA DNA Surveillance Screen - Final Complete 06/20/16 1452 Nasal Specimen Negative for MRSA by DNA Probe Urine Culture - Final Complete 06/19/16 1223 Urine,Catheterized MORE THAN THREE TYPES OF ORGANISMS WV... Blood Culture - Preliminary Resulted 06/19/16 1144 Blood NO GROWTH TO DATE. Blood Culture - Preliminary Resulted 06/19/16 1125 Blood NO GROWTH TO DATE. Last 24 Hours Test 06/20/16 16:56 06/21/16 06:50 06/21/16 08:30 Thyroid Stimulating Hormone (TSH) 0.747 uIu/ml Sodium Level 137 mmol/L Potassium Level 2.5 mmol/L Chloride Level 95 mmol/L Carbon Dioxide Level 29 mmol/L Anion Gap 13.0 mmol/L Blood Urea Nitrogen 30 mg/dl Creatinine 0.72 mg/dl Est Creatinine Clear Calc Drug Dose 48.4 ml/min Estimated GFR () 90.4 Estimated GFR (Non- 78.0 BUN/Creatinine Ratio 41.8 Random Glucose 252 mg/dl Calcium Level 8.1 mg/dl Magnesium Level 1.8 mg/dl Total Bilirubin 0.7 mg/dl Direct Bilirubin 0.2 mg/dl Aspartate Amino Transf (AST/SGOT) 16 U/L Alanine Aminotransferase (ALT/SGPT) 19 U/L Alkaline Phosphatase 84 U/L Total Protein 5.9 gm/dl Albumin 2.7 gm/dl White Blood Count 11.33 K/uL Red Blood Count 4.70 M/uL Hemoglobin 12.1 g/dL Hematocrit 37.5 % Mean Corpuscular Volume 79.8 fL Mean Corpuscular Hemoglobin 25.7 pg Mean Corpuscular Hemoglobin Concent 32.3 g/dl Platelet Count 109 K/uL Neutrophils (%) (Auto) 82.6 % Lymphocytes (%) (Auto) 4.3 % Monocytes (%) (Auto) 11.7 % Eosinophils (%) (Auto) 0.5 % Basophils (%) (Auto) 0.2 % Neutrophils # (Auto) 9.35 K/uL Lymphocytes # (Auto) 0.49 K/uL Monocytes # (Auto) 1.33 K/uL Eosinophils # (Auto) 0.06 K/uL Basophils # (Auto) 0.02 K/uL RDW Standard Deviation 53.1 fL RDW Coefficient of Variation 18.0 % Immature Granulocyte % (Auto) 0.7 % Immature Granulocyte # (Auto) 0.08 K/uL Platelet Estimate DECREASED Assessment & Plan Patient is an 80 yo female with 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 Questionable pneumonia with bibasilar opacities, and possible UTI with recurrent UTI's and dirty UA on admission. She is currently on IV Zosyn and Ceftaroline. MRSA nasal swab was negative, therefore feel that this patient does not need IV Ceftaroline. Will D/C. Recommend continuing IV Zosyn. Will repeat Urine culture with large amount of multiple organisms on initial culture, but likely repeat will be negative. Will check procalcitonin. Patient at risk for aspiration pneumonia as well, but will continue to follow labs and await improvement. Note: This document was dictated utilizing [employer] voice recognition software. Minor errors in quality assurance manager may be present. Case reviewed and agree with above assessment.
[2016-06-21] MEDS: PANTOprazole INJ 40 MG in SYRINGE 0 ML IV SCH (10:59)
--- NOTE | 2016-06-21 12:47 | Hospitalist Progress Note ---
Hospitalist Progress Note Date of Service Jun 21, 2016. (Genesis Carrillo PA-C) Subjective Pt evaluation today including: physical exam, chart review, lab review, review of studies, review of inpatient medication list pt nonverbal. Additional Comments: unable to obtain (Genesis Carrillo PA-C) Objective Vital Signs Date Time Temp Pulse Resp B/P Pulse Ox O2 Delivery O2 Flow Rate FiO2 06/21/16 12:00 Nasal Cannula 2.0 06/21/16 11:37 80 18 96 Nasal Cannula 2.0 06/21/16 11:02 36.6 79 20 149/80 93 Room Air 06/21/16 08:00 Nasal Cannula 2.0 06/21/16 07:06 85 18 99 Nasal Cannula 2.0 06/21/16 07:04 36.7 82 20 145/78 99 Nasal Cannula 2.0 06/21/16 04:00 Nasal Cannula 2.0 06/21/16 03:51 37.2 78 22 127/73 100 Nasal Cannula 2.0 06/21/16 00:10 37.1 68 21 138/85 98 Nasal Cannula 2.0 06/20/16 23:59 Nasal Cannula 2.0 06/20/16 20:00 Nasal Cannula 2.0 06/20/16 18:55 84 18 94 Nasal Cannula 2.0 06/20/16 18:49 36.8 82 18 132/74 96 Nasal Cannula 2.0 06/20/16 16:00 Nasal Cannula 2.0 06/20/16 15:55 36.8 85 24 133/80 96 Nasal Cannula 2.0 06/20/16 15:26 84 16 92 Nasal Cannula 2.0 (Genesis Carrillo PA-C) Physical Exam General Appearance: + mild distress (appears to be in mild distress/discomfort) ENT: + pertinent finding (oral mucosa dry) Neck: no JVD Respiratory/Chest: + pertinent finding (few crackles at the right base) Cardiovascular: regular rate, rhythm Abdomen: normal bowel sounds, non tender, soft Extremities: non-tender, no pedal edema, + pertinent finding (atrophy BLE) Neurologic/Psychiatric: + pertinent finding (nonberbal. Does not follow commands) Skin: warm/dry (Genesis Carrillo PA-C) Laboratory Results 06/21/16 08:30 Red Blood Count 4.70, Mean Corpuscular Volume 79.8, Mean Corpuscular Hemoglobin 25.7, Mean Corpuscular Hemoglobin Concent 32.3, Neutrophils (%) (Auto) 82.6, Lymphocytes (%) (Auto) 4.3, Monocytes (%) (Auto) 11.7, Eosinophils (%) (Auto) 0.5, Basophils (%) (Auto) 0.2, Neutrophils # (Auto) 9.35, Lymphocytes # (Auto) 0.49, Monocytes # (Auto) 1.33, Eosinophils # (Auto) 0.06, Basophils # (Auto) 0.02 06/21/16 06:50 Test 06/20/16 16:56 06/21/16 06:50 06/21/16 08:30 06/21/16 10:45 Thyroid Stimulating Hormone (TSH) 0.747 uIu/ml (0.300-4.500) Anion Gap 13.0 mmol/L (3-11) Est Creatinine Clear Calc Drug Dose 48.4 ml/min Estimated GFR () 90.4 Estimated GFR (Non- 78.0 BUN/Creatinine Ratio 41.8 (10-20) Calcium Level 8.1 mg/dl (8.5-10.1) Magnesium Level 1.8 mg/dl (1.8-2.4) Total Bilirubin 0.7 mg/dl (0.2-1) Direct Bilirubin 0.2 mg/dl (0-0.2) Aspartate Amino Transf (AST/SGOT) 16 U/L (15-37) Alanine Aminotransferase (ALT/SGPT) 19 U/L (12-78) Alkaline Phosphatase 84 U/L (45-117) Total Protein 5.9 gm/dl (6.4-8.2) Albumin 2.7 gm/dl (3.4-5.0) White Blood Count 11.33 K/uL (4.8-10.8) Red Blood Count 4.70 M/uL (4.2-5.4) Hemoglobin 12.1 g/dL (12.0-16.0) Hematocrit 37.5 % (37-47) Mean Corpuscular Volume 79.8 fL (80-100) Mean Corpuscular Hemoglobin 25.7 pg (25-34) Mean Corpuscular Hemoglobin Concent 32.3 g/dl (32-36) Platelet Count 109 K/uL (130-400) Neutrophils (%) (Auto) 82.6 % Lymphocytes (%) (Auto) 4.3 % Monocytes (%) (Auto) 11.7 % Eosinophils (%) (Auto) 0.5 % Basophils (%) (Auto) 0.2 % Neutrophils # (Auto) 9.35 K/uL (1.4-6.5) Lymphocytes # (Auto) 0.49 K/uL (1.2-3.4) Monocytes # (Auto) 1.33 K/uL (0.11-0.59) Eosinophils # (Auto) 0.06 K/uL (0-0.5) Basophils # (Auto) 0.02 K/uL (0-0.2) RDW Standard Deviation 53.1 fL (36.4-46.3) RDW Coefficient of Variation 18.0 % (11.5-14.5) Immature Granulocyte % (Auto) 0.7 % Immature Granulocyte # (Auto) 0.08 K/uL (0.00-0.02) Platelet Estimate DECREASED Procalcitonin 0.60 ng/mL (0-0.5) Date/Time Source Procedure Growth Status 06/20/16 14:52 Nasal MRSA DNA Surveillance Screen - Final Specimen Negative for MRSA by DNA Probe Complete Last 24 Hours Test 06/20/16 16:56 06/21/16 06:50 06/21/16 08:30 06/21/16 10:45 Thyroid Stimulating Hormone (TSH) 0.747 uIu/ml Sodium Level 137 mmol/L Potassium Level 2.5 mmol/L Chloride Level 95 mmol/L Carbon Dioxide Level 29 mmol/L Anion Gap 13.0 mmol/L Blood Urea Nitrogen 30 mg/dl Creatinine 0.72 mg/dl Est Creatinine Clear Calc Drug Dose 48.4 ml/min Estimated GFR () 90.4 Estimated GFR (Non- 78.0 BUN/Creatinine Ratio 41.8 Random Glucose 252 mg/dl Calcium Level 8.1 mg/dl Magnesium Level 1.8 mg/dl Total Bilirubin 0.7 mg/dl Direct Bilirubin 0.2 mg/dl Aspartate Amino Transf (AST/SGOT) 16 U/L Alanine Aminotransferase (ALT/SGPT) 19 U/L Alkaline Phosphatase 84 U/L Total Protein 5.9 gm/dl Albumin 2.7 gm/dl White Blood Count 11.33 K/uL Red Blood Count 4.70 M/uL Hemoglobin 12.1 g/dL Hematocrit 37.5 % Mean Corpuscular Volume 79.8 fL Mean Corpuscular Hemoglobin 25.7 pg Mean Corpuscular Hemoglobin Concent 32.3 g/dl Platelet Count 109 K/uL Neutrophils (%) (Auto) 82.6 % Lymphocytes (%) (Auto) 4.3 % Monocytes (%) (Auto) 11.7 % Eosinophils (%) (Auto) 0.5 % Basophils (%) (Auto) 0.2 % Neutrophils # (Auto) 9.35 K/uL Lymphocytes # (Auto) 0.49 K/uL Monocytes # (Auto) 1.33 K/uL Eosinophils # (Auto) 0.06 K/uL Basophils # (Auto) 0.02 K/uL RDW Standard Deviation 53.1 fL RDW Coefficient of Variation 18.0 % Immature Granulocyte % (Auto) 0.7 % Immature Granulocyte # (Auto) 0.08 K/uL Platelet Estimate DECREASED Procalcitonin 0.60 ng/mL (Genesis Carrillo, PARenettaC) Assessment and Plan An 80-year-old white female with a h/o 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 There was a suspected component of CHF on admission. Sepsis, Acute hypoxemic respiratory failure, acute metabolic encephalopathy, Suspected aspiration PNA and UTI- CXR with CHF but CT Chest shows bilat airspace opacities and with reported thick white sputum being suctioned along with fever and cough. Urine appears infected on UA but is growing mixed orgs on Ur cx. Was given one dose of lasix for suspected CHF but ECHO with hyperdynamic function-very mild acute diastolic HF -Continue Zosyn for aspiration PNA/UTI -Telfaro d/c'ed as MRSA swab was neg per ID recs -continue Zosyn -follow BCxs -keep HOB at 60 degrees for continuous tube feeds -continue nebs History of chronic staghorn calculus. There was no evidence of renal failure or hydronephrosis -continue zosyn Spastic paralysis/quadriplegia due to meningioma compression on brain stem with h/o hydrocephalus history status post TRUCK FARMER shunt. Has severe contractures. Bedridden x 11 years, nonverbal, progressively worsening function over the last year. -Palliative care meeting today at 1 pm -Continue tube feeds -monitor K Hypokalemia -KCl 20 mEq IV and 40 mEq per PEG Proph- heparin SQ, PPI CODE STATUS -LEVEL V DO NO RESUSCITATE DISPO -Hopeful for d/c home with hospice care Discharge planning: home with Hospice (Genesis Carrillo, PARenettaC) PA Physician Supervision Note: I interviewed and examined the patient. Discussed with Genesis Carrillo PAC and agree with findings and plan as documented in the very well summarized note. Any exceptions or clarifications are listed here: None Pt here with acute aspiration pneumonia, acute hypoxic respiratory failure and chronic functional quadriplegia vitals reviewed car is tachy and irreg at times lung with shallow breaths, coarse rhonchi R>L Aspiration pneumonia on Zosyn palliative care to assist family in decision to transition to more comfort oriented care plan Documented By: Chris Castillo (Chris Castillo M.D.)
--- NOTE | 2016-06-21 15:01 | Palliative Care Consultation ---
Consultation Date of Consultation: Jun 21, 2016. Requesting Physician: Dr. Henry Attending Physician: Genesis Carrillo PA-C; Dr. Castillo Reason for Consultation: Goals of care History of Present Illness This 80 year old female patient presented to the ED two days ago with complaints by the family of dyspnea, lethargy, and fever. History was obtained from family and record. 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 She originally had the brain tumor in the and is s/p craniotomy with recurrent in 2004 when it was deemed inoperable. She now is paralyzed, nonverbal and lives with a PEG feeding tube. She lives home with her and her family cares for her. At baseline, patient is sometimes able to say "yes" and "no" but mostly communicates with eye movements. According to her daughter, Ana Lilia, the patient was not opening her eyes, seemed to have difficulty breathing and "sounded like she was drowning," so they decided to bring her to the ED. Her CXR showed cardiomegaly and mild congestive failure, pro-BNP elevated at 2679, abnormal UA, CT head showed no significant change since 07/07/2015 but with mass effect on brainstem from calcified lesion, and CT abd/pelvis showed fecal impaction, ?stercoral proctitis, oderate colonic diverticulosis, cholelithiasis , trace left pleural effusion and bibasilar airspace opacities, staghorn calculus of the left kidney, and numerous other renal calculi unchanged from 2015. Patient was given 40mg IV lasix and admitted to telemetry unit. Believed to have likely aspiration pneumonia as well. Given the patients age, very poor functional status, and multiple comorbidities, family was requesting palliative care consult. I met with the daughter, Ana Lilia Henderson, and granddaughter, Deborah, in the consultation room. Ana Lilia is one of the patient's main caregivers and her surrogate decision maker. She stated that her mother really has no good quality of life, and her mother always told Ana Lilia that if she was at and end-stage medical condition that she would not want any heroic measures. The patient has been battling this paralysis and decline for 11 years now, and Ana Lilia is wondering if the patient is coming to the end of life. We discussed the patient' s medical conditions and about end-of-life issues. Ana Lilia states that if the patient doesn't "rally" in the next day or so, she and the rest of the family are considering hospice in the home. I explained palliative and hospice to Ana Lilia and Deborah, questions answered. For now, they'd like to continue the patient 's current care and see how she does in the next day or two and they will work as a family to make decisions. Past Medical/Surgical History Medical History: Chronic staghorn calculus UTI Meningioma Spastic paralysis/quadriplegia secondary to above Hemorrhoid [employer] shunt Surgical History: Hysterectomy Craniotomy with tumor resection Social History Smoking Status: Unknown if Ever Smoked History of Alcohol Use: No Drug Use: none Marital Status: Housing Status: lives with family Occupation Status: retired, disabled Review of Systems unable to obtain Allergies Coded Allergies: Fluconazole (Verified Allergy, Intermediate, ?RASH-PT ALSO ON VANCO, ) Vancomycin (Verified Adverse Reaction, Intermediate, ?RASH,?JESSE SYNDROME-PT ALSO ON DIFLUCAN, 06/19/16) Medications Current Inpatient Medications Medications (Trade) Dose Ordered Sig/Lena Route Start Time Stop Time Status Last Admin Dose Admin Heparin Sodium (Porcine) (Heparin Sq 5000 Unit/0.5ml) 5,000 unit Q12 SQ 06/19/16 21:00 07/19/16 20:59 06/21/16 08:30 5,000 UNIT Acetaminophen (Tylenol Tab) 650 mg Q4H PRN PO 06/19/16 15:00 07/19/16 14:59 Ondansetron HCl 4 mg 4 mg Q6H PRN IV 06/19/16 15:00 07/19/16 14:59 Piperacillin Sod/ Tazobactam Sod/ Dextrose (Zosyn Iv/D5 100ml) 115 ml @ 28.75 mls/ hr Q8 IV 06/19/16 22:00 06/24/16 21:59 06/21/16 06:36 28.75 MLS/HR Albuterol/ Ipratropium (Duoneb) 3 ml QIDR INH 06/19/16 16:00 07/19/16 15:59 06/21/16 11:36 3 ML Ferrous Sulfate (Feosol Elix) 220 mg BID PEG 06/19/16 21:00 07/19/16 20:59 06/21/16 08:31 220 MG Prednisolone Sodium Phosphate (Pediapred Oral Soln) 2.5 mg QAM GT 06/20/16 09:00 07/20/16 08:59 06/21/16 08:31 2.5 MG Ranitidine HCl (zANTac SYRUP) 300 mg HS PO 06/19/16 21:00 07/19/16 20:59 06/20/16 21:54 300 MG Sertraline HCl 100 mg 100 mg QAM PEG 06/20/16 09:00 07/20/16 08:59 06/21/16 08:31 100 MG Pantoprazole Sodium/Syringe (Protonix Inj/ Syringe) 10 ml @ 5 mls/min DAILY@11 IV 06/20/16 11:00 07/20/16 10:59 06/21/16 10:59 5 MLS/MIN Piperacillin Sod/ Tazobactam Sod (Consult) 1 ea UD PRN N/A 06/19/16 15:30 07/19/16 15:29 Docusate Sodium (coLACE SYRUP) 100 mg BID PEG 06/19/16 21:00 07/19/16 20:59 06/21/16 08:30 100 MG Polyethylene (Miralax Powder Packet) 17 gm DAILY PRN PEG 06/19/16 17:45 07/19/16 17:44 06/20/16 10:56 17 GM Sodium Biphosphate/ Sodium Phosphate (Fleet Enema) 132 ml DAILY PRN CA 06/20/16 14:30 07/20/16 14:29 Enteral Nutritional Formula (Fibersource HN) 1,000 ml UD PEG 06/20/16 16:45 07/20/16 16:44 06/20/16 17:20 1,000 ML Physical Exam Date Time Temp Pulse Resp B/P Pulse Ox O2 Delivery O2 Flow Rate FiO2 06/21/16 12:00 Nasal Cannula 2.0 06/21/16 11:37 80 18 96 Nasal Cannula 2.0 06/21/16 11:02 36.6 79 20 149/80 93 Room Air 06/21/16 08:00 Nasal Cannula 2.0 06/21/16 07:06 85 18 99 Nasal Cannula 2.0 06/21/16 07:04 36.7 82 20 145/78 99 Nasal Cannula 2.0 06/21/16 04:00 Nasal Cannula 2.0 06/21/16 03:51 37.2 78 22 127/73 100 Nasal Cannula 2.0 06/21/16 00:10 37.1 68 21 138/85 98 Nasal Cannula 2.0 06/20/16 23:59 Nasal Cannula 2.0 06/20/16 20:00 Nasal Cannula 2.0 06/20/16 18:55 84 18 94 Nasal Cannula 2.0 06/20/16 18:49 36.8 82 18 132/74 96 Nasal Cannula 2.0 06/20/16 16:00 Nasal Cannula 2.0 06/20/16 15:55 36.8 85 24 133/80 96 Nasal Cannula 2.0 06/20/16 15:26 84 16 92 Nasal Cannula 2.0 General Appearance: no apparent distress, + pertinent finding (chronically ill appearing) ENT: + pertinent finding (large tongue with almost TD-like movements) Neck: no JVD Respiratory: no respiratory distress, no accessory muscle use, + crackles, + rhonchi, + pertinent finding (extremely moist-sounding, rattling in upper airway audible just standing in room) Cardiovascular: regular rate, rhythm, no edema, + normal peripheral pulses Abdomen: normal bowel sounds, soft Neurologic/Psychiatric: + pertinent finding (nonverbal, did not open eyes or follow commands.) Laboratory Results Last 24 Hours Test 06/20/16 16:56 06/21/16 06:50 06/21/16 08:30 06/21/16 10:45 Thyroid Stimulating Hormone (TSH) 0.747 uIu/ml Sodium Level 137 mmol/L Potassium Level 2.5 mmol/L Chloride Level 95 mmol/L Carbon Dioxide Level 29 mmol/L Anion Gap 13.0 mmol/L Blood Urea Nitrogen 30 mg/dl Creatinine 0.72 mg/dl Est Creatinine Clear Calc Drug Dose 48.4 ml/min Estimated GFR () 90.4 Estimated GFR (Non- 78.0 BUN/Creatinine Ratio 41.8 Random Glucose 252 mg/dl Calcium Level 8.1 mg/dl Magnesium Level 1.8 mg/dl Total Bilirubin 0.7 mg/dl Direct Bilirubin 0.2 mg/dl Aspartate Amino Transf (AST/SGOT) 16 U/L Alanine Aminotransferase (ALT/SGPT) 19 U/L Alkaline Phosphatase 84 U/L Total Protein 5.9 gm/dl Albumin 2.7 gm/dl White Blood Count 11.33 K/uL Red Blood Count 4.70 M/uL Hemoglobin 12.1 g/dL Hematocrit 37.5 % Mean Corpuscular Volume 79.8 fL Mean Corpuscular Hemoglobin 25.7 pg Mean Corpuscular Hemoglobin Concent 32.3 g/dl Platelet Count 109 K/uL Neutrophils (%) (Auto) 82.6 % Lymphocytes (%) (Auto) 4.3 % Monocytes (%) (Auto) 11.7 % Eosinophils (%) (Auto) 0.5 % Basophils (%) (Auto) 0.2 % Neutrophils # (Auto) 9.35 K/uL Lymphocytes # (Auto) 0.49 K/uL Monocytes # (Auto) 1.33 K/uL Eosinophils # (Auto) 0.06 K/uL Basophils # (Auto) 0.02 K/uL RDW Standard Deviation 53.1 fL RDW Coefficient of Variation 18.0 % Immature Granulocyte % (Auto) 0.7 % Immature Granulocyte # (Auto) 0.08 K/uL Platelet Estimate DECREASED Procalcitonin 0.60 ng/mL Assessment & Plan Palliative Performance Scale: 20 % Problem list: Altered mental status-?metabolic encephalopathy Aspiration pneumonia and UTI- urine culture likely contaminated, is being repeated per ID. Blood cultures negative. History of meningioma, inoperable- spastic paralysis/quadriplegia Nonverbal NPO- PEG tube with tube feedings Constipation/fecal impaction- has moved bowels per documentation. Goals of care (Z51.5) Palliative care plan: Discussed with patient's daughter Ana Lilia Henderson, son Pantera Cobian, granddaughter Deborah, and Genesis Carrillo PA-C. -DNR/DNI per patient's family according to patient's wishes. -Continue current treatment with IV abx- ID following. -If patient does not improve in the next day or two, family may want to pursue hospice.They are still considering in-home palliative care provided by an agency. -Goal is for comfort and no suffering. No escalation of care in the even that the patient declines. -Patient is very moist-sounding with crackles and rhonchi- discussed with Ms. Gerardo PA-C, and primary care will be deferred to hear. Patient may need dose of IV furosemide. Thank you kindly for this consult. I will follow as needed.
[2016-06-21] MEDS ORDERED: NURSING VERBAL MED ORDER ONE (16:45)
[2016-06-21] MEDS: FEEDING WATER FLUSH PEG SCH ×2 (17:00→23:00)
[2016-06-21] MEDS: RANITIDINE HCL SYRUP 150 MG/10 ML 480ML PO SCH (21:26)
[2016-06-22] VITALS (9 sets, daily range): BP systolic 137–162; BP diastolic 71–90; PULSE 80–88; TEMP 35.9–36.8; O2SAT 95–100
[2016-06-22] MEDS: FEEDING WATER FLUSH PEG SCH ×4 (05:00→21:59)
[2016-06-22] MEDS: PIPERACILL/TAZOBAC IV 3.375 GM in DEXTROSE 5% 100ML 100 ML IV SCH ×3 (05:53→21:32)
[2016-06-22] MEDS: ALBUT/IPRATROP 3MG/0.5MG NEB 3 ML VIAL INH SCH ×4 (07:06→19:59)
[2016-06-22] MEDS: prednisoLONE SOD PHOS 5 MG/5 ML GT SCH (07:56)
[2016-06-22] MEDS: DOCUSATE SODIUM 100 MG/10 ML UDC PEG SCH ×2 (07:56→21:32)
[2016-06-22] MEDS: FERROUS SULFATE ELIX 220MG/5ML PEG SCH ×2 (07:57→21:32)
[2016-06-22] MEDS: SERTRALINE HCL 100 MG TAB PEG SCH (07:57)
[2016-06-22 08:20] LABS: HEMATOCRIT 38.4 % (37-47); MEAN CELL VOLUME 82.2 fL (80-100); MEAN CORPUSCULAR HEMOGLOBIN 26.3 pg (25-34); RED BLOOD COUNT 4.67 M/uL (4.2-5.4); WHITE BLOOD COUNT 11.21 K/uL (4.8-10.8)
[2016-06-22] MEDS ORDERED: NSS + 20MEQ KCL 1000ML 1,000 ML IV SCH (08:30)
[2016-06-22] MEDS: HEPARIN SOD 5000 UNIT/0.5 ML CARP SQ SCH ×2 (08:30→21:00)
[2016-06-22 08:36] LABS: PLATELET COUNT 116 K/uL (130-400)
[2016-06-22 08:57] LABS: BUN/CREATININE RATIO 46.5 (10-20); CALCIUM 8.6 mg/dl (8.5-10.1); CREATININE 0.66 mg/dl (0.60-1.20); POTASSIUM 3.5 mmol/L (3.5-5.1)
[2016-06-22] MEDS ORDERED: LANSOPRAZOLE SOLUTAB 30 MG PEG SCH (08:58)
--- NOTE | 2016-06-22 11:26 | Palliative Care Progress Note ---
Palliative Care Progress Note Date of Service Jun 22, 2016. Subjective Pt evaluation today including: conversation w/ family, physical exam, chart review, conversation w/ call center support consultant (Genesis Carrillo PA-C) Pain: unable to assess PO Intake: tolerating tube feedins at 50ml/hr Voiding: cleary catheter in place -No major changes over night or today. Son, Marcell, and patient's at bedside. Stated that the patient opened her eyes earlier. She did not open her eyes while I was in the room but did raise her eyebrows when I spoke to her. -Oliguric over night. IVF given by hospitalist this AM. -I had a very natalia discuss about patient's poor prognosis with the daughter, Ana Lilia Henderson, on the phone. Updated her on the low urine out and giving IVF, but now have to monitor for fluid overload. Also spoke about the risk for frequent and chronic aspiration and infection. She stated that she is really leaning toward hospice, but she'd like to speak with her father (patient's ) about it first. She will let us know. Review of Systems unable to obtain ROS due to patient condition Objective Vital Signs Date Time Temp Pulse Resp B/P Pulse Ox O2 Delivery O2 Flow Rate FiO2 06/22/16 09:47 Nasal Cannula 2.0 06/22/16 08:39 36.8 84 20 100 1.0 06/22/16 07:57 36.8 84 20 137/74 100 Nasal Cannula 1.0 06/22/16 07:06 84 18 100 Nasal Cannula 2.0 06/22/16 04:10 36.8 84 20 152/89 98 Nasal Cannula 2.0 06/22/16 04:00 Nasal Cannula 2.0 06/21/16 23:59 Nasal Cannula 2.0 06/21/16 23:57 36.9 88 21 136/79 100 Nasal Cannula 2.0 06/21/16 20:00 Nasal Cannula 2.0 06/21/16 19:39 85 18 96 Nasal Cannula 2.0 06/21/16 18:55 36.6 86 18 132/75 99 Nasal Cannula 2.0 06/21/16 16:00 Nasal Cannula 2.0 06/21/16 15:45 86 18 99 Nasal Cannula 2.0 06/21/16 15:27 37.0 81 18 127/74 99 Room Air 2.0 06/21/16 12:00 Nasal Cannula 2.0 06/21/16 11:37 80 18 96 Nasal Cannula 2.0 Physical Exam General Appearance: no apparent distress, + pertinent finding (chronically ill appearing. very contractured ) Neck: no JVD Respiratory/Chest: no respiratory distress, no accessory muscle use, + crackles , + rhonchi, + pertinent finding (lungs very moist throughout- audible in upper airway) Cardiovascular: regular rate, rhythm, no edema, + normal peripheral pulses Abdomen: normal bowel sounds, soft Neurologic/Psychiatric: + pertinent finding (obtunded) Laboratory Results Last 24 Hours Test 06/22/16 07:31 White Blood Count 11.21 K/uL Red Blood Count 4.67 M/uL Hemoglobin 12.3 g/dL Hematocrit 38.4 % Mean Corpuscular Volume 82.2 fL Mean Corpuscular Hemoglobin 26.3 pg Mean Corpuscular Hemoglobin Concent 32.0 g/dl RDW Standard Deviation 54.9 fL RDW Coefficient of Variation 18.2 % Platelet Count 116 K/uL Sodium Level 139 mmol/L Potassium Level 3.5 mmol/L Chloride Level 98 mmol/L Carbon Dioxide Level 31 mmol/L Anion Gap 10.0 mmol/L Blood Urea Nitrogen 31 mg/dl Creatinine 0.66 mg/dl Est Creatinine Clear Calc Drug Dose 52.8 ml/min Estimated GFR () 95.3 Estimated GFR (Non- 82.3 BUN/Creatinine Ratio 46.5 Random Glucose 278 mg/dl Calcium Level 8.6 mg/dl Assessment and Plan Problem list: Altered mental status-?metabolic encephalopathy Aspiration pneumonia and UTI- urine culture likely contaminated, is being repeated per ID. Blood cultures negative. History of meningioma, inoperable- spastic paralysis/quadriplegia Nonverbal NPO- PEG tube with tube feedings Constipation/fecal impaction- has moved bowels per documentation. Goals of care (Z51.5) Palliative care plan: Discussed with patient's daughter, Ana Lilia Henderson, son Marcell, Justin, and Genesis Carrillo PA-C. -Given no real improvement in patient's condition and poor prognosis, Ana Lilia states that she is leaning toward home with hospice. Would like to speak with her father first. -Either way, plan is to go home with 24hr care. -Would like to do POLST form before discharge. -Also spoke with Kyung Rodriguez PA-C, from infectious disease- plan will be to transition to PO abx via PEG tube. -Goal is for comfort. No signs of pain at this time. I will continue to follow as needed. Palliative Performance Scale: 20 % Continued [facility] stay due to: multiple IV medications needed Discharge planning: home with Hospice
--- NOTE | 2016-06-22 12:17 | Hospitalist Progress Note ---
Hospitalist Progress Note Date of Service Jun 22, 2016. (Genesis Carrillo PA-C) Subjective Pt evaluation today including: conversation w/ family, physical exam, chart review, lab review, conversation w/ lead sales consultant, review of inpatient medication list Patient remains nonverbal. The family notes that she still seems to be slightly off of her baseline. She is still not opening her eyes in response to their voices. Additional Comments: Unable to obtain secondary to mental state (Genesis Carrillo PA-C) Objective Vital Signs Date Time Temp Pulse Resp B/P Pulse Ox O2 Delivery O2 Flow Rate FiO2 06/22/16 11:29 88 16 100 Nasal Cannula 2.0 06/22/16 09:47 Nasal Cannula 2.0 06/22/16 08:39 36.8 84 20 100 1.0 06/22/16 07:57 36.8 84 20 137/74 100 Nasal Cannula 1.0 06/22/16 07:06 84 18 100 Nasal Cannula 2.0 06/22/16 04:10 36.8 84 20 152/89 98 Nasal Cannula 2.0 06/22/16 04:00 Nasal Cannula 2.0 06/21/16 23:59 Nasal Cannula 2.0 06/21/16 23:57 36.9 88 21 136/79 100 Nasal Cannula 2.0 06/21/16 20:00 Nasal Cannula 2.0 06/21/16 19:39 85 18 96 Nasal Cannula 2.0 06/21/16 18:55 36.6 86 18 132/75 99 Nasal Cannula 2.0 06/21/16 16:00 Nasal Cannula 2.0 06/21/16 15:45 86 18 99 Nasal Cannula 2.0 06/21/16 15:27 37.0 81 18 127/74 99 Room Air 2.0 (Genesis Carrillo PA-C) Physical Exam General Appearance: no apparent distress (chronically ill in appearance) ENT: + pertinent finding (oral mucosa more moist today. No exudate or plaques noted.) Respiratory/Chest: + pertinent finding (rhonchorous breath sounds bilaterally.) Cardiovascular: regular rate, rhythm Abdomen: normal bowel sounds, non tender, soft Extremities: + pertinent finding (trace pitting edema in the left lower extremity) Neurologic/Psychiatric: + pertinent finding (does not follow commands. Nonverbal.) Skin: warm/dry (Genesis Carrillo PA-C) Laboratory Results 06/22/16 07:31 06/22/16 07:31 Test 06/22/16 07:31 Red Blood Count 4.67 M/uL (4.2-5.4) Mean Corpuscular Volume 82.2 fL (80-100) Mean Corpuscular Hemoglobin 26.3 pg (25-34) Mean Corpuscular Hemoglobin Concent 32.0 g/dl (32-36) RDW Standard Deviation 54.9 fL (36.4-46.3) RDW Coefficient of Variation 18.2 % (11.5-14.5) Anion Gap 10.0 mmol/L (3-11) Est Creatinine Clear Calc Drug Dose 52.8 ml/min Estimated GFR () 95.3 Estimated GFR (Non- 82.3 BUN/Creatinine Ratio 46.5 (10-20) Calcium Level 8.6 mg/dl (8.5-10.1) Last 24 Hours Test 06/22/16 07:31 White Blood Count 11.21 K/uL Red Blood Count 4.67 M/uL Hemoglobin 12.3 g/dL Hematocrit 38.4 % Mean Corpuscular Volume 82.2 fL Mean Corpuscular Hemoglobin 26.3 pg Mean Corpuscular Hemoglobin Concent 32.0 g/dl RDW Standard Deviation 54.9 fL RDW Coefficient of Variation 18.2 % Platelet Count 116 K/uL Sodium Level 139 mmol/L Potassium Level 3.5 mmol/L Chloride Level 98 mmol/L Carbon Dioxide Level 31 mmol/L Anion Gap 10.0 mmol/L Blood Urea Nitrogen 31 mg/dl Creatinine 0.66 mg/dl Est Creatinine Clear Calc Drug Dose 52.8 ml/min Estimated GFR () 95.3 Estimated GFR (Non- 82.3 BUN/Creatinine Ratio 46.5 Random Glucose 278 mg/dl Calcium Level 8.6 mg/dl (Genesis Carrillo PA-C) Assessment and Plan An 80-year-old white female with a h/o spastic quadriplegia secondary to inoperable meningioma causing brainstem compression, chronic staghorn calculus left kidney and recurrent UTIs, hydrocephalus s/p [employer] shunt, remote h/o recurrent aspiration PNAs, HTN, here with acute metabolic encephalopathy, sepsis , UTI, and likely aspiration PNA as well as acute on chronic hypoxemic respiratory failure. There was a suspected component of CHF on admission. Sepsis, Acute on chronic hypoxemic respiratory failure, acute metabolic encephalopathy-Aspiration PNA and UTI -Continue Zosyn for aspiration PNA/UTI -Telfaro d/c'ed as MRSA swab was neg per ID recs -continue Zosyn today. Depending on clinical response, this may be changed to Augmentin for a total of 7 days -Blood cultures negative to date -keep HOB at 60 degrees for continuous tube feeds -continue nebs ?Acute CHF-disagree. Appears dry. EF 70%/ Grade I diastolic dysfunction UTI-more than 3 organisms growing -urine cx sent again -continue zosyn History of chronic staghorn calculus. There was no evidence of renal failure or hydronephrosis -continue zosyn Spastic paralysis/quadriplegia due to meningioma compression on brain stem with h/o hydrocephalus history status post [employer] shunt. Has severe contractures. Bedridden x 11 years, nonverbal, progressively worsening function over the last year. Very poor QOL -Appreciate palliative care's recommendations and significant involvement with this case. Patient's family is still fairly hesitant about the idea of hospice. In particular, they would like to continue with tube feeds and treatment of the current infection -Continue continuous tube feeds at 50 mL/h -Free water flushes 250 mL every 6 hours added yesterday Hyperglycemia -In the setting of hospice discussions, would not pursue any further w/u or tx -Tube feeds could be adjust if necessary Decreased urine output overnight-the patient does appear slightly dry -NS + 20 mEq KCl @ 100 cc/hr 1 L Hypokalemia-improved Proph- heparin SQ, PPI CODE STATUS -LEVEL V DO NO RESUSCITATE DISPO -DC home in family care -Palliative care still following. Family is not quite ready for hospice. This was discussed at length with the family. I enforced that aspiration will be an ongoing problem. (Genesis Carrillo, PA-C) PA Physician Supervision Note: I interviewed and examined the patient. Discussed with Genesis Carrillo PAC and agree with findings and plan as documented in the once again very well summarized note. Any exceptions or clarifications are listed here: None Pt here with acute aspiration pneumonia, acute hypoxic respiratory failure and chronic functional quadriplegia, family is hoping the patient will "rally" with antibiotic care. Unfortunately I do not notice any real clinical improvement vitals reviewed car is irreg distant lung with persistent rhonchi R>L avbs is soft Aspiration pneumonia on Zosyn, will consider transition to augmentin palliative care has discussed with family and may facilitate transition to home soon to then consider palliative care (Chris Castillo M.D.)
[2016-06-22] MEDS: RANITIDINE HCL SYRUP 150 MG/10 ML 480ML PO SCH (21:32)
[2016-06-22] MEDS: FIBERSOURCE HN 1000ML BAG PEG SCH ×2 (21:59)
[2016-06-23] MEDS: FEEDING WATER FLUSH PEG SCH ×2 (04:56→11:04)
[2016-06-23] MEDS: PIPERACILL/TAZOBAC IV 3.375 GM in DEXTROSE 5% 100ML 100 ML IV SCH (06:12)
[2016-06-23 07:02] VITALS: PULSE 80; O2SAT 96
[2016-06-23] MEDS: ALBUT/IPRATROP 3MG/0.5MG NEB 3 ML VIAL INH SCH ×2 (07:02→10:45)
[2016-06-23 07:20] VITALS: BP 147/70; PULSE 81; TEMP 36.8; O2SAT 94
[2016-06-23] MEDS: prednisoLONE SOD PHOS 5 MG/5 ML GT SCH (08:00)
[2016-06-23] MEDS ORDERED: LANSOPRAZOLE SOLUTAB 30 MG PEG SCH (08:00)
[2016-06-23 08:30] VITALS: O2SAT 96
[2016-06-23 08:41] LABS: MEAN CORPUSCULAR HGB CONC 31.6 g/dl (32-36)
[2016-06-23] MEDS: DOCUSATE SODIUM 100 MG/10 ML UDC PEG SCH (08:41)
[2016-06-23] MEDS: FERROUS SULFATE ELIX 220MG/5ML PEG SCH (08:41)
[2016-06-23] MEDS: HEPARIN SOD 5000 UNIT/0.5 ML CARP SQ SCH (08:42)
[2016-06-23] MEDS: SERTRALINE HCL 100 MG TAB PEG SCH (08:42)
[2016-06-23 08:45] LABS: HEMATOCRIT 37.7 % (37-47); MEAN CELL VOLUME 81.4 fL (80-100); MEAN CORPUSCULAR HEMOGLOBIN 25.7 pg (25-34); RED BLOOD COUNT 4.63 M/uL (4.2-5.4); WHITE BLOOD COUNT 10.35 K/uL (4.8-10.8)
[2016-06-23 09:11] LABS: ANISOCYTOSIS PRESENT; BASO % 0.3 %; BASO ABS # 0.03 K/uL (0-0.2); COMPLETE YES; EOS % 3.2 %; IG% 2.3 %; LYMPH % 4.7 %; LYMPH ABS # 0.49 K/uL (1.2-3.4); MONO % 9.8 %; NEUT % 79.7 %; PLATELET COUNT 121 K/uL (130-400); PLT ESTIMATE NORMAL; POLYCHROMASIA 1+
[2016-06-23 09:22] LABS: BUN/CREATININE RATIO 42.7 (10-20); CALCIUM 8.8 mg/dl (8.5-10.1); CREATININE 0.64 mg/dl (0.60-1.20); POTASSIUM 3.5 mmol/L (3.5-5.1)
[2016-06-23] MEDS ORDERED: MRLP17X PEG (10:08)
[2016-06-23] MEDS ORDERED: AGMUDL4005 PO (10:08)
--- NOTE | 2016-06-23 10:16 | Discharge Instructions ---
Discharge Instructions Date of Service Jun 23, 2016. Admission Reason for Admission: Chf Exacerbation, Uti, Fever Discharge Discharge Diagnosis / Problem: aspiration PNA, UTI Discharge Goals Goal(s): Decrease discomfort, Diagnostic testing, Therapeutic intervention Activity Recommendations Activity Limitations: resume your previous activity . Instructions / Follow-Up Instructions / Follow-Up You have been treated in the hospital for pneumonia and a UTI. This is being treated with antibiotics It is uncertain whether Ms Cobian will regain her previous state as she has multiple medical problems on top of her current infections The following changes/additions have been made to your medication list: -Augmentin 1 dose through PEG tube twice daily-->finish entire course -Continue Miralax through PEG tube daily as needed for bowel movements You also appeared somewhat dehydrated here in the hospital. We have increased your water flushes through the PEG tube to 250 mL (cc) every 6 hrs Please monitor how much she is urinating. This may be adjusted at home as see fit The palliative care services have been consulted here in the hospital. Hospice can be set up as an outpatient Current Hospital Diet Patient's current hospital diet: Discharge Diet Recommended Diet: N/A (resume tube feedings at 50 mL continuous with water flushes as noted above) Procedures Procedures Performed: echo The left ventricle is normal in size. There is mild concentric left ventricular hypertrophy. Ejection Fraction = >70 %. The left ventricle is hyperdynamic. A full diastolic examination was done with clinical findings of Class I diastolic dysfunction. No regional wall motion abnormalities noted. CT abdomen and pelvis 2. There is rectosigmoid fecal impaction. Mild perirectal stranding is noted. Correlate clinically for evidence of stercoral proctitis. 3. Moderate colonic diverticulosis without CT evidence of acute diverticulitis. 4. There is a trace left pleural effusion and bibasilar airspace opacities. These are similar to the 2015 examination. This could represent chronic scarring/fibrosis versus an infectious/inflammatory pneumonitis. Clinical correlation will be required. 5. A ventriculoperitoneal shunt catheter is coiled in the right upper quadrant. 6. Cholelithiasis. 7. A staghorn calculus is seen in the left kidney. Layering hyperdense debris within the bladder lumen likely represents numerous calculi, and these findings are unchanged from 2015. Pending Studies Studies pending at discharge: no Laboratory Results 06/23/16 08:15 Red Blood Count 4.63, Mean Corpuscular Volume 81.4, Mean Corpuscular Hemoglobin 25.7, Mean Corpuscular Hemoglobin Concent 31.6, Neutrophils (%) (Auto) 79.7, Lymphocytes (%) (Auto) 4.7, Monocytes (%) (Auto) 9.8, Eosinophils (%) (Auto) 3.2 , Basophils (%) (Auto) 0.3, Neutrophils # (Auto) 8.25, Lymphocytes # (Auto) 0.49 , Monocytes # (Auto) 1.01, Eosinophils # (Auto) 0.33, Basophils # (Auto) 0.03 06/23/16 08:15 Test 06/23/16 08:15 White Blood Count 10.35 K/uL (4.8-10.8) Red Blood Count 4.63 M/uL (4.2-5.4) Hemoglobin 11.9 g/dL (12.0-16.0) Hematocrit 37.7 % (37-47) Mean Corpuscular Volume 81.4 fL (80-100) Mean Corpuscular Hemoglobin 25.7 pg (25-34) Mean Corpuscular Hemoglobin Concent 31.6 g/dl (32-36) Platelet Count 121 K/uL (130-400) Neutrophils (%) (Auto) 79.7 % Lymphocytes (%) (Auto) 4.7 % Monocytes (%) (Auto) 9.8 % Eosinophils (%) (Auto) 3.2 % Basophils (%) (Auto) 0.3 % Neutrophils # (Auto) 8.25 K/uL (1.4-6.5) Lymphocytes # (Auto) 0.49 K/uL (1.2-3.4) Monocytes # (Auto) 1.01 K/uL (0.11-0.59) Eosinophils # (Auto) 0.33 K/uL (0-0.5) Basophils # (Auto) 0.03 K/uL (0-0.2) RDW Standard Deviation 53.6 fL (36.4-46.3) RDW Coefficient of Variation 17.8 % (11.5-14.5) Immature Granulocyte % (Auto) 2.3 % Immature Granulocyte # (Auto) 0.24 K/uL (0.00-0.02) Platelet Estimate NORMAL Polychromasia 1+ Anisocytosis PRESENT Anion Gap 11.0 mmol/L (3-11) Est Creatinine Clear Calc Drug Dose 55.7 ml/min Estimated GFR () 96.3 Estimated GFR (Non- 83.1 BUN/Creatinine Ratio 42.7 (10-20) Calcium Level 8.8 mg/dl (8.5-10.1) Lipid Panel Test 06/20/16 04:20 Range/Units Triglycerides Level 174 H 0-150 mg/dl Cholesterol Level 152 0-200 mg/dl HDL Cholesterol 43 mg/dl Cholesterol/HDL Ratio 3.5 LDL Cholesterol, Calculated 74 mg/dl Medical Emergencies . Who to Call and When: Medical Emergencies: If at any time you feel your situation is an emergency, please call 911 immediately. . Non-Emergent Contact Non-Emergency issues call your: Primary Care Provider . . "Provider Documentation" section prepared by Genesis Carrillo. VTE Core Measure Inpt VTE Proph given/why not?: Unfractionated heparin SQ
[2016-06-23 10:45] VITALS: PULSE 84; O2SAT 95
[2016-06-23] MEDS ORDERED: FLUC100T4 PEG (11:08)
[2016-06-23 11:28] VITALS: BP 147/70; PULSE 84; TEMP 36.8; O2SAT 95
--- NOTE | 2016-06-23 12:22 | Discharge Summary ---
Discharge Summary Date of Service Jun 23, 2016. (Genesis Carrillo PA-C) Discharge Summary Admission Date: Jun 19, 2016 at 14:52 Discharge Date: Jun 23, 2016 Discharge Disposition: Home (in the care of family) Principal Diagnosis: acute respiratory failure with hypoxia, aspiration pneumonia, UTI Problems/Secondary Diagnoses: History of inoperable meningioma Quadriplegia Hypertension Constipation Immunizations: Have You Had Influenza Vaccine: Yes History of Tetanus Vaccine?: Unknown History of Pneumococcal: 2009 History of Hepatitis B Vaccine: Unknown Procedures: Echocardiogram Interpretation Summary * Patient paralyzed, lying tilted to the right side with left arm folded tightly across her chest. * Name: LORAINE DUARTE Study Date: 06/20/2016 09:05 AM BP: 153/78 mmHg * Patient Location: .2T\S\E220\S\1 HR: 87 * : 1935 (M/d/yyyy) Gender: Female Height: 62 in * Age: 80 yrs Ethnicity: ME Weight: 143 lb * Ordering Physician: Casper Henry * Referring Physician: Self, Referred * Performed By: Abbey Lombardo RDCS * * Reason For Study: CHF * BSA: 1.7 m2 * History: CHF * Hyperdynamic biventricular systolic function. * Biventricular hypertrophy. * No significant valvular regurgitation noted. * Mild aortic stenosis.. * The study was technically difficult. * The study was technically limited. Procedure Details * A contrast injection of Definity was performed to improve assessment of LV function. * Contrast was injected into an intravenous site in the right arm. * One vial of Definity ultrasound contrast was diluted in normal saline to a total volume of 10 ml. A total of '2' ml of solution was administered during imaging. * Lot # [id number] of Definity utilized for procedure. * Expiration date 1 JUN 05. * The attending nurse who injected the contrast agent was ELVER RIVAS RN. Left Ventricle * The left ventricle is normal in size. * There is mild concentric left ventricular hypertrophy. * Ejection Fraction = >70 %. * The left ventricle is hyperdynamic. * A full diastolic examination was done with clinical findings of Class I diastolic dysfunction. * No regional wall motion abnormalities noted. CT abdomen/pelvis 1. Significant suboptimal examination without oral and IV contrast. The examination is also degraded by streak and motion artifact. 2. There is rectosigmoid fecal impaction. Mild perirectal stranding is noted. Correlate clinically for evidence of stercoral proctitis. 3. Moderate colonic diverticulosis without CT evidence of acute diverticulitis. 4. There is a trace left pleural effusion and bibasilar airspace opacities. These are similar to the 2015 examination. This could represent chronic scarring/fibrosis versus an infectious/inflammatory pneumonitis. Clinical correlation will be required. 5. A ventriculoperitoneal shunt catheter is coiled in the right upper quadrant. 6. Cholelithiasis. 7. A staghorn calculus is seen in the left kidney. Layering hyperdense debris within the bladder lumen likely represents numerous calculi, and these findings are unchanged from 2015. 8. Additional changes as above. Electronically signed by: Gaetano Pike M.D. 06/19/2016 12:42 PM Consultations: Infectious disease Palliative care GI (Genesis Carrillo PA-C) Medication Reconciliation New Medications: Amoxicillin/Clavulanate Potas (Augmentin 400MG/5ML) 400 Mg/5 Ml Susp 875 MG PO BID for 4 Days, #8 DOSE Fluconazole (Diflucan) 100 Mg Tab 100 MG PEG DAILY, #5 TAB Polyethylene (Miralax) 17 Gm Pow 17 GM PEG DAILY PRN for Constipation for 30 Days, #30 DOSE Continued Medications: Esomeprazole Magnesium (Nexium) 40 Mg Capcr 40 MG PEG BID, CAP IN 15ML WATER Ferrous Sulfate (Ferrous Sulfate) 220 Mg/5 Ml Elx 5 ML PEG BID Prednisolone Sod Phos (Prednisolone Sodium Phosp) 5 Mg/5 Ml Liqd 2.5 ML PEG QAM Ranitidine HCl (Ranitidine HCl) 150 Mg/10 Ml Syrp 20 ML PEG HS Sertraline HCl (Sertraline HCl) 100 Mg Tab 100 MG PEG QAM Discharge Exam Patient remains nonverbal Unable to obtain review of systems Physical Exam: General Appearance: + mild distress (appears to be in mild distress) ENT: + pertinent finding (oral mucosa mildly dry) Respiratory/Chest: + pertinent finding (coarse breath sounds bilaterally. Rhonchorous bilaterally.) Cardiovascular: regular rate, rhythm Abdomen / GI: normal bowel sounds, soft Extremities: no calf tenderness, no pedal edema Neurologic/Psychiatric: + pertinent finding (nonverbal. 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 There was a suspected component of CHF on admission. Sepsis, Acute on chronic hypoxemic respiratory failure, acute metabolic encephalopathy-Aspiration PNA and UTI-no significant improvement mentally, but ? at baseline -started on Telfaro and zosyn -ID consulted -Telfaro d/c'ed as MRSA swab was neg per ID recs -Zosyn while inpt-->transition to po augmentin. Total length of abx tx 7 days -+ 1 blood cx noted today-gram + cocci-->likely contaminate -f/u final result -monitor for worsening infectious symptoms: fever -keep HOB at 60 degrees for continuous tube feeds @ 50 cc/hr ?Acute CHF-disagree. Appears dry. EF 70%/ Grade I diastolic dysfunction -hydrated while inpt d/t decrease in UO UTI-more than 3 organisms growing -repeat urine cx with pinpoint growth -tx'ed with zosyn-->augmentin reasonable coverage for outpt. Again tx for a total of 7 days History of chronic staghorn calculus. There was no evidence of renal failure or hydronephrosis. 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 Has severe contractures. Bedridden x 11 years, nonverbal, progressively worsening function over the last year. Very poor QOL -Appreciate palliative care's recommendations and significant involvement with this case. Patient's family is still fairly hesitant about the idea of hospice. In particular, they would like to continue with tube feeds and treatment of the current infection -Continue continuous tube feeds at 50 mL/h -Increase Free water flushes 250 mL every 6 hours Hyperglycemia -In the setting of hospice discussions, would not pursue any further w/u or tx Constipation-tx'ed with miralax. Resolved -GI consulted Hypokalemia-improved Proph- heparin SQ, PPI CODE STATUS -LEVEL V DO NO RESUSCITATE DISPO -DC home in family care -Palliative care still d/w Family at length. Not quite ready for hospice. I enforced that aspiration will be an ongoing problem with very poor prognosis Total Time Spent: Greater than 30 minutes This includes examination of the patient, discharge planning, medication reconciliation, and communication with other providers. (Genesis Carrillo PA-C) PREET Physician Supervision Note: I interviewed and examined the patient. Discussed with Genesis Carrillo PAC and agree with findings and plan as documented, any exceptions or clarifications are listed here: None Pt here with acute aspiration pneumonia, acute hypoxic respiratory failure and chronic functional quadriplegia, family is willing to take home on peg antibiotics despite no real improvement vitals reviewed car is irreg distant lung with persistent rhonchi R>L abs is soft Aspiration pneumonia transition to augmentin via peg family requested diflucan for yeast infection in [place] area palliative care has discussed with family and may facilitate transition once home (Chris Castillo M.D.) Discharge Instructions Please refer to the electronic Patient Visit Report (Discharge Instructions) for additional information. (Genesis Carrillo PA-C) Follow-Up PCP for f/u inpt treatment in 1 week (Genesis Carrillo PA-C) Additional Copies To Marcell Arellano PA-C
== END 2016-06-23 12:30 | disposition home health service (06) | DRG 871 ==
LOC: ENRESERVDT → ENRESERVTM → C.EDB 10:55 → C.2T 14:52 → C.4E 06-22 08:57
PROVIDERS: ADMIT Hospitalist; ATTEND Internal Medicine
DX: A41.9 Sepsis, unspecified organism (principal); G82.50 Quadriplegia, unspecified; N39.0 Urinary tract infection, site not specified; R47.01 Aphasia; G93.41 Metabolic encephalopathy; G93.5 Compression of brain; J69.0 Pneumonitis due to inhalation of food and vomit; J96.01 Acute respiratory failure with hypoxia; R14.0 Abdominal distension (gaseous); Z66 Do not resuscitate; E87.6 Hypokalemia; N20.0 Calculus of kidney; I10 Essential (primary) hypertension; D32.9 Benign neoplasm of meninges, unspecified; K21.9 Gastro-esophageal reflux disease without esophagitis; Z79.899 Other long term (current) drug therapy; Z88.1 Allergy status to other antibiotic agents; Z88.3 Allergy status to other anti-infective agents; Z93.1 Gastrostomy status; Z98.2 Presence of cerebrospinal fluid drainage device; Z86.011 Personal history of benign neoplasm of the brain; Z87.01 Personal history of pneumonia (recurrent); Z87.440 Personal history of urinary (tract) infections; Z87.442 Personal history of urinary calculi; Z87.891 Personal history of nicotine dependence; Z83.3 Family history of diabetes mellitus; Z86.14 Personal history of Methicillin resistant Staphylococcus aureus infection; Z74.01 Bed confinement status

== ENCOUNTER 2017-11-09 16:47 | Inpatient (IN) | payer OTHER, MEDICARE ==
[~2017-11-09] VITALS: Ht 157.5 cm; Wt 61.6 kg
[~2017-11-09 16:47] MED LIST changes: -ACET160S78 PEG; +MRLP17X PEG; -NUTR1.2L PEG
[2017-11-09 17:49] LABS: BASO % 0.1 %; BASO ABS # 0.01 K/uL (0-0.2); EOS % 0.4 %; EOS ABS # 0.04 K/uL (0-0.5); HEMATOCRIT 39.3 % (37-47); HEMOGLOBIN 12.3 g/dL (12.0-16.0); IG# 0.04 K/uL (0.00-0.02); LYMPH % 6.8 %; LYMPH ABS # 0.66 K/uL (1.2-3.4); MEAN CELL VOLUME 82.4 fL (80-100); MEAN CORPUSCULAR HEMOGLOBIN 25.8 pg (25-34); MEAN CORPUSCULAR HGB CONC 31.3 g/dl (32-36); MONO % 6.9 %; MONO ABS # 0.67 K/uL (0.11-0.59); NEUT % 85.4 %; NEUT ABS # 8.31 K/uL (1.4-6.5); PLATELET COUNT 156 K/uL (130-400); RED CELL DISTRIBUTION WIDTH CV 17.9 % (11.5-14.5); RED CELL DISTRIBUTION WIDTH SD 53.6 fL (36.4-46.3); WHITE BLOOD COUNT 9.73 K/uL (4.8-10.8)
[2017-11-09 18:31] LABS: ALBUMIN 3.8 gm/dl (3.4-5.0); ALKALINE PHOSPHATASE 91 U/L (45-117); ALT/SGPT 19 U/L (12-78); AST/SGOT 14 U/L (15-37); BLOOD UREA NITROGEN 17 mg/dl (7-18); CALCIUM 9.3 mg/dl (8.5-10.1); CARBON DIOXIDE 33 mmol/L (21-32); CKMB < 1.0 ng/ml (0.5-3.6); CREATININE 0.43 mg/dl (0.60-1.20); GLUCOSE 111 mg/dl (70-99); POTASSIUM 4.4 mmol/L (3.5-5.1); SODIUM 132 mmol/L (136-145); TOTAL PROTEIN 7.1 gm/dl (6.4-8.2)
--- NOTE | 2017-11-09 18:34 | DIAGNOSTIC IMAGING REPORT ---
CHEST ONE VIEW PORTABLE HISTORY: 82 years-old Female dyspnea, possible aspiration acute shortness of breath COMPARISON: Chest radiograph 06/19/2016 TECHNIQUE: Portable AP view of the chest FINDINGS: Ventricular peritoneal shunt catheter again noted with calcifications noted along the catheter within the right supraclavicular distribution. Calcification of the aorta. Cardiac silhouette is mildly enlarged. Pulmonary vascular congestion with mild interstitial coarsening. There is no pneumothorax or pleural effusion. There are degenerative changes of the shoulders and spine. Hardware about the left humerus redemonstrated. IMPRESSION: Cardiomegaly and pulmonary vascular congestion with mild interstitial coarsening suggestive of pulmonary edema. The above report was generated using voice recognition software. It may contain grammatical, syntax or spelling errors. Electronically signed by: Marc Mai M.D. 11/09/2017 6:32 PM Dictated Date/Time: 11/09/2017 6:31 PM
[2017-11-09] MEDS ORDERED: SODIUM CHLORIDE 0.9% 1000ML 1,000 ML IV STA (20:01)
[2017-11-09] MEDS ORDERED: CEFTRIAXONE SOD INJ 1 GM ADDVIAL IV STA (21:00)
[2017-11-09] MEDS ORDERED: PIPERACILLIN/TAZOBACTAM 4.5 GM/100ML D5W IV STA (21:00)
--- NOTE | 2017-11-09 23:05 | EMERGENCY ROOM VISIT NOTE ---
History Report prepared by Lorenzo: Marie Gifford Under the Supervision of: Dr. Ronen Elena M.D. First contact with patient: 16:56 Chief Complaint: RESPIRATORY PROBLEMS Stated Complaint: ASPIRATION Nursing Triage Summary: family was instructed to give additional water with feeding and now believes pt has aspirated. 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 She is accompanied by her family who state they were instructed to give additional water with feeding. They note she has been getting worse over the past couple of days. They also report she has had a fever of 99.8 and her normal is 97.0. Her daughter and granddaughter state she has aspirated in the past. Her granddaughter states she had a similar episode in July 2015. She also states her grandmother had a seizure 2 days dredge captain but this is not abnormal for her. She had brain surgery for a tumor done by Dr. Portillo in 2004. The patient was taking cephalexin and finished it this past week. She is not on any seizure medications or blood thinners. HPI and ROS limited due to the patient's baseline condition. Source of History: family History Limited By: other (the patient's baseline condition) Onset: 2 days dredge captain Position: other (global) Quality: other (possible aspiration) Timing: worsening Associated Symptoms: + fevers (99.8) Review of Systems See HPI for pertinent positives and negatives. HPI and ROS limited due to the patient's baseline condition. Past Medical & Surgical Medical Problems: (1) BRAIN NEOPLASM NOS (2) chf exac, UTI/fever (3) CYST OF KIDNEY, ACQUIRED (4) ESOPHAGEAL REFLUX (5) G tube feedings (6) HYPERTENSION NOS (7) IRON DEFIC ANEMIA NOS Family History Diabetes mellitus Social History Smoking Status: Never Smoker Alcohol Use: none Drug Use: none Marital Status: Housing Status: lives with family Occupation Status: retired, disabled Current/Historical Medications Scheduled Esomeprazole Magnesium (Nexium), 40 MG PEG BID Ferrous Sulfate (Ferrous Sulfate), 5 ML PEG BID Prednisolone Sod Phos (Prednisolone Sodium Phosp), 2.5 ML PEG QAM Ranitidine HCl (Ranitidine HCl), 20 ML PEG HS Sertraline HCl (Sertraline HCl), 100 MG PEG QAM Scheduled PRN Polyethylene (Miralax), 17 GM PEG DAILY PRN for Constipation Allergies Coded Allergies: Fluconazole (Verified Allergy, Intermediate, ?RASH-PT ALSO ON VANCO, ) Vancomycin (Verified Adverse Reaction, Intermediate, ?RASH,?JESSE SYNDROME-PT ALSO ON DIFLUCAN, 11/09/17) Physical Exam Vital Signs Date Time Temp Pulse Resp B/P (MAP) Pulse Ox O2 Delivery O2 Flow Rate FiO2 11/09/17 22:00 71 11/09/17 22:00 70 13 174/79 94 Nasal Cannula 2.0 11/09/17 21:00 14 182/81 96 Nasal Cannula 2.0 11/09/17 20:25 37.0 71 13 95 Room Air 11/09/17 20:00 72 176/94 96 Nasal Cannula 2.0 11/09/17 19:01 183/93 11/09/17 18:58 73 14 94 11/09/17 18:28 76 14 91 11/09/17 18:01 161/86 11/09/17 17:58 77 13 99 11/09/17 17:56 76 11/09/17 17:46 76 13 163/77 99 Nasal Cannula 2.0 11/09/17 17:44 97 Nasal Cannula 2.0 11/09/17 17:44 97 Nasal Cannula 2.0 11/09/17 16:51 82 20 168/85 90 Room Air Physical Exam GENERAL: Awake but lethargic, gurgling at times. HENT: Normocephalic, atraumatic. Oropharynx unremarkable. EYES: Normal conjunctiva. Sclera non-icteric. NECK: Supple. No nuchal rigidity. FROM. No masses. RESPIRATORY: Coarse upper airways sounds present. No wheezes. Scattered rales bilaterally. CARDIAC: Normal rate. Normal rhythm. No murmurs. No rubs. Extremities warm and well perfused. Pulses equal. No JVD. GI: Soft, non-distended. No tenderness to palpation. No rebound or guarding. No masses. RECTAL: Deferred. MUSCULOSKELETAL: Atraumatic. Chest examination reveals no tenderness. The back is symmetrical on inspection without obvious abnormality. There is no CVA tenderness to palpation. No joint edema. Contractures of the upper extremities. Small tear on the right lateral lower leg. LOWER EXTREMITIES: Calves are equal size bilaterally and non-tender. No edema. No discoloration. NEURO: Altered sensorium not following commands. Unable to fully assess for sensory or motor deficits given her chronic debilitated state that the family states has been present since her brain tumor surgery. SKIN: No rash or jaundice noted. Medical Decision & Procedures ER Provider Diagnostic Interpretation: Radiology results as stated below per my review and radiologist interpretation: CHEST ONE VIEW PORTABLE HISTORY: 82 years-old Female dyspnea, possible aspiration acute shortness of breath COMPARISON: Chest radiograph 06/19/2016 TECHNIQUE: Portable AP view of the chest FINDINGS: Ventricular peritoneal shunt catheter again noted with calcifications noted along the catheter within the right supraclavicular distribution. Calcification of the aorta. Cardiac silhouette is mildly enlarged. Pulmonary vascular congestion with mild interstitial coarsening. There is no pneumothorax or pleural effusion. There are degenerative changes of the shoulders and spine. Hardware about the left humerus redemonstrated. IMPRESSION: Cardiomegaly and pulmonary vascular congestion with mild interstitial coarsening suggestive of pulmonary edema. The above report was generated using voice recognition software. It may contain grammatical, syntax or spelling errors. Electronically signed by: Marc Mai M.D. 11/09/2017 6:32 PM Laboratory Results 11/09/17 17:35 Red Blood Count 4.77, Mean Corpuscular Volume 82.4, Mean Corpuscular Hemoglobin 25.8, Mean Corpuscular Hemoglobin Concent 31.3, Neutrophils (%) (Auto) 85.4, Lymphocytes (%) (Auto) 6.8, Monocytes (%) (Auto) 6.9, Eosinophils (%) (Auto) 0.4 , Basophils (%) (Auto) 0.1, Neutrophils # (Auto) 8.31, Lymphocytes # (Auto) 0.66 , Monocytes # (Auto) 0.67, Eosinophils # (Auto) 0.04, Basophils # (Auto) 0.01 11/09/17 17:35 Test 11/09/17 17:35 11/09/17 19:35 White Blood Count 9.73 K/uL (4.8-10.8) Red Blood Count 4.77 M/uL (4.2-5.4) Hemoglobin 12.3 g/dL (12.0-16.0) Hematocrit 39.3 % (37-47) Mean Corpuscular Volume 82.4 fL (80-100) Mean Corpuscular Hemoglobin 25.8 pg (25-34) Mean Corpuscular Hemoglobin Concent 31.3 g/dl (32-36) Platelet Count 156 K/uL (130-400) Neutrophils (%) (Auto) 85.4 % Lymphocytes (%) (Auto) 6.8 % Monocytes (%) (Auto) 6.9 % Eosinophils (%) (Auto) 0.4 % Basophils (%) (Auto) 0.1 % Neutrophils # (Auto) 8.31 K/uL (1.4-6.5) Lymphocytes # (Auto) 0.66 K/uL (1.2-3.4) Monocytes # (Auto) 0.67 K/uL (0.11-0.59) Eosinophils # (Auto) 0.04 K/uL (0-0.5) Basophils # (Auto) 0.01 K/uL (0-0.2) RDW Standard Deviation 53.6 fL (36.4-46.3) RDW Coefficient of Variation 17.9 % (11.5-14.5) Immature Granulocyte % (Auto) 0.4 % Immature Granulocyte # (Auto) 0.04 K/uL (0.00-0.02) Anion Gap 5.0 mmol/L (3-11) Est Creatinine Clear Calc Drug Dose 83.3 ml/min Estimated GFR () 108.3 Estimated GFR (Non- 93.4 BUN/Creatinine Ratio 38.6 (10-20) Calcium Level 9.3 mg/dl (8.5-10.1) Total Bilirubin 0.6 mg/dl (0.2-1) Aspartate Amino Transf (AST/SGOT) 14 U/L (15-37) Alanine Aminotransferase (ALT/SGPT) 19 U/L (12-78) Alkaline Phosphatase 91 U/L (45-117) Total Creatine Kinase 40 U/L (26-192) Creatine Kinase MB < 1.0 ng/ml (0.5-3.6) Creatine Kinase MB Ratio (0-3.0) Troponin I < 0.015 ng/ml (0-0.045) Total Protein 7.1 gm/dl (6.4-8.2) Albumin 3.8 gm/dl (3.4-5.0) Globulin 3.3 gm/dl (2.5-4.0) Albumin/Globulin Ratio 1.2 (0.9-2) Urine Color YELLOW Urine Appearance CLOUDY (CLEAR) Urine pH 7.5 (4.5-7.5) Urine Specific [place] 1.017 (1.000-1.030) Urine Protein 1+ (NEG) Urine Glucose (UA) NEG (NEG) Urine Ketones NEG (NEG) Urine Occult Blood 3+ (NEG) Urine Nitrite POS (NEG) Urine Bilirubin NEG (NEG) Urine Urobilinogen NEG (NEG) Urine Leukocyte Esterase LARGE (NEG) Urine WBC (Auto) 10-30 /hpf (0-5) Urine RBC (Auto) 10-30 /hpf (0-4) Urine Hyaline Casts (Auto) 1-5 /lpf (0-5) Urine Epithelial Cells (Auto) >30 /lpf (0-5) Urine Bacteria (Auto) 3+ (NEG) Urine Crystals See comments (NONE PRSENT) Urine Yeast (Auto) (NONE PRSENT) Laboratory results reviewed by me Medications Administered Medications (Trade) Dose Ordered Sig/Lena Route Start Time Stop Time Status Last Admin Dose Admin Sodium Chloride 1,000 ml @ 125 mls/hr Q8H STAT IV 11/09/17 20:01 11/10/17 04:00 11/09/17 20:21 125 MLS/HR Piperacillin Sod/ Tazobactam Sod (Zosyn Iv) 4.5 gm NOW STAT IV 11/09/17 21:00 11/09/17 21:01 DC 11/09/17 21:22 4.5 GM ECG Per My Interpretation Indication: other (possible aspiration) Rate (beats per minute): 77 Rhythm: normal sinus Findings: left axis deviation, other (no PAC, no PVCs, no ST elevation or depression ) ED Course 1699: The patient was evaluated in room C10. A complete history and physical exam was performed. 1904: I checked on the patient at this time. I updated her about the results. Her urine specimen is getting done. 1939: I checked on the patient at this time and updated the family. 2000: Ordered Sodium Chloride 1000 ml @ 125 mls/hr IV 2100: Ordered Zosyn IV 4.5 gm IV 2116: I discussed the patient's results with her family. They are in agreement with the treatment plan. 2120: Discussed the patient's case with Dr. Elkin Melo [facility] Hospitalist. The patient will be evaluated for further treatment and disposition. Medical Decision Prior records/ancillary studies reviewed and summarized above. Nursing notes reviewed and agree them. Additional history obtained from family.. The patient's history was concerning for altered mental status. Differential diagnosis: Etiologies such as aspiration, urinary tract infection, pneumonia, hypoglycemia , electrolyte abnormalities, cardiac sources, intracerebral event, toxicologic, neurologic, as well as others were entertained. Physical examination: As above. The patient was not hypoxic. She was having coarse upper airway sounds. ER treatment provided: IV Lock Normal saline hydration at normal saline at 125 mL an hour IV. On reassessment the patient felt better. Diagnostics interpretation by me: ECG: No acute ischemia The labs revealed an unremarkable CBC. Chemistry panel revealed some mild dehydration. Cardiac markers and LFTs unremarkable. Urinalysis concerning for UTI. Imaging studies: Chest x-ray as above. Family requested to minimize imaging given the patient's chronic debilitated state. They preferred not to have any CT imaging or MRI imaging. The patient appears to have a UTI. She is altered from her baseline. I discussed this with the family. They would like her admitted to the hospital for further management. Consultation: A consultation was placed with the hospitalist. The case was discussed and diagnostics were reviewed. A flatplate of the abdomen was requested and this was ordered. It is pending. The patient was evaluated in the ER for further treatment. Medication Reconcilliation Current Medication List: was personally reviewed by me Blood Pressure Screening Patient's blood pressure: Elevated blood pressure Blood pressure disposition: Referred to PCP Consults Time Called: 2118 Consulting Physician: Dr. Elkin Melo [facility] Hospitalist Returned Call: 2120 Discussed the patient's case with Dr. Elkin Melo [facility] Hospitalist. The patient will be evaluated for further treatment and disposition. Impression Primary Impression: Altered mental status Additional Impression: UTI (urinary tract infection) Scribe Attestation The scribe's documentation has been prepared under my direction and personally reviewed by me in its entirety. I confirm that the note above accurately reflects all work, treatment, procedures, and medical decision making performed by me. Departure Information Dispostion Being Evaluated By Hospitalist (Dr. Elkin Melo [facility] Hospitalist) Referrals Marcell Arellano PA-C (PCP) Patient Instructions My [facility] Problem Qualifiers
[2017-11-09] MEDS ORDERED: PIPERACILLIN/TAZOBACTAM 3.375 GM/100ML D5W IV STA (23:35)
[2017-11-09] MEDS ORDERED: PIPERACILL/TAZOBAC CONSULT ACTIVE PRN (23:45)
[2017-11-09] MEDS ORDERED: ACETAMINOPHEN SOLN 650MG/20.3 ML UDC PEG PRN (23:45)
[2017-11-09] MEDS ORDERED: POLYETHYLENE (MIRALAX) 17 GM PACK PEG PRN (23:45)
[2017-11-09] MEDS ORDERED: DAPTOmycin IV 360 MG in SODIUM CHLORIDE 0.9% 50ML 50 ML IV SCH (23:45)
[2017-11-09] MEDS: SODIUM CHLORIDE 0.9% 1000ML 1,000 ML IV SCH (23:45)
[2017-11-10] VITALS (9 sets, daily range): BP systolic 149–170; BP diastolic 72–89; PULSE 69–91; TEMP 36.4–37.3; O2SAT 88–100; Ht 157.5 cm; Wt 61.6 kg
--- NOTE | 2017-11-10 00:15 | History and Physical ---
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 Family brought pt to the ED for concern of aspiration. Per daughter, for the past 2-3 days they have been suctioning her more and noted increased foaming from mouth and nose. As a result they have increased water flushes from 2x per day at baseline. Also noted to have a temp of 98.6 this morning and her baseline is around 97. Pt is also not closing eyes and napping like she used to. Eyes have been open all day today. Per daughter, no vomiting noted. Pt wears diaper and had BM this AM which was normal. 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 (17) Meningioma (18) New onset seizure (19) PEG tube malfunction (20) PEG tube malfunction (21) PEG tube malfunction (22) PEG tube malfunction (23) Pneumonia (24) Pneumonia (25) Respiratory distress (26) Sepsis (27) Urinary tract infection (28) UTI (urinary tract infection) Family History Diabetes mellitus Social History Smoking Status: Never Smoker Smokeless Tobacco Use: No Alcohol Use: none Drug Use: none Marital Status: Housing status: lives with family Occupational Status: retired, disabled Immunizations History of Influenza Vaccine: Yes History of Tetanus Vaccine?: Unknown History of Pneumococcal: 2009 History of Hepatitis B Vaccine: Unknown Allergies Coded Allergies: Fluconazole (Verified Allergy, Intermediate, ?RASH-PT ALSO ON VANCO, ) Vancomycin (Verified Adverse Reaction, Intermediate, ?RASH,?JESSE SYNDROME-PT ALSO ON DIFLUCAN, 11/09/17) Home Medications Scheduled Esomeprazole Magnesium (Nexium), 40 MG PEG BID Ferrous Sulfate (Ferrous Sulfate), 5 ML PEG BID Prednisolone Sod Phos (Prednisolone Sodium Phosp), 2.5 ML PEG QAM Ranitidine HCl (Ranitidine HCl), 20 ML PEG HS Sertraline HCl (Sertraline HCl), 100 MG PEG QAM Scheduled PRN Polyethylene (Miralax), 17 GM PEG DAILY PRN for Constipation Review of Systems Constitutional: + fever (per daughter temp this AM 98.6 and normally around 97) Respiratory: + problem reported (increased secretions; oral and nasal foaming) Abdomen: No vomiting Neurologic: + problem reported (eyes always open now and not napping) Physical Exam Vital Signs Date Time Temp Pulse Resp B/P (MAP) Pulse Ox O2 Delivery O2 Flow Rate FiO2 11/09/17 23:00 70 14 154/78 96 Nasal Cannula 2.0 11/09/17 22:00 71 11/09/17 22:00 70 13 174/79 94 Nasal Cannula 2.0 11/09/17 21:00 14 182/81 96 Nasal Cannula 2.0 11/09/17 20:25 37.0 71 13 95 Room Air 11/09/17 20:00 72 176/94 96 Nasal Cannula 2.0 11/09/17 19:01 183/93 11/09/17 18:58 73 14 94 11/09/17 18:28 76 14 91 11/09/17 18:01 161/86 11/09/17 17:58 77 13 99 11/09/17 17:56 76 11/09/17 17:46 76 13 163/77 99 Nasal Cannula 2.0 11/09/17 17:44 97 Nasal Cannula 2.0 11/09/17 17:44 97 Nasal Cannula 2.0 11/09/17 16:51 82 20 168/85 90 Room Air General Appearance: + pertinent finding (eyes open, blinks, making gurgling nose involuntarily, non-verbal/immobile) Head: atraumatic Eyes: normal inspection, PERRL, + pertinent finding (excessive tearing noted) ENT: pharynx normal Neck: no adenopathy Respiratory/Chest: normal breath sounds, + rhonchi (diffuse) Cardiovascular: regular rate, rhythm, no murmur Abdomen/GI: normal bowel sounds, non tender, soft Extremities/Musculoskelatal: no calf tenderness, no pedal edema, + pertinent finding (bruising to b/l LEs during transport to hospital (per family)) Neurologic/Psych: + pertinent finding (non-verbal; unable to follow commands or interact) Skin: normal color, warm/dry Diagnostics Laboratory Results Results Past 24 Hours Test 11/09/17 17:35 11/09/17 19:35 Range/Units White Blood Count 9.73 4.8-10.8 K/uL Red Blood Count 4.77 4.2-5.4 M/uL Hemoglobin 12.3 12.0-16.0 g/dL Hematocrit 39.3 37-47 % Mean Corpuscular Volume 82.4 80-100 fL Mean Corpuscular Hemoglobin 25.8 25-34 pg Mean Corpuscular Hemoglobin Concent 31.3 32-36 g/dl Platelet Count 156 130-400 K/uL Neutrophils (%) (Auto) 85.4 % Lymphocytes (%) (Auto) 6.8 % Monocytes (%) (Auto) 6.9 % Eosinophils (%) (Auto) 0.4 % Basophils (%) (Auto) 0.1 % Neutrophils # (Auto) 8.31 1.4-6.5 K/uL Lymphocytes # (Auto) 0.66 1.2-3.4 K/uL Monocytes # (Auto) 0.67 0.11-0.59 K/uL Eosinophils # (Auto) 0.04 0-0.5 K/uL Basophils # (Auto) 0.01 0-0.2 K/uL RDW Standard Deviation 53.6 36.4-46.3 fL RDW Coefficient of Variation 17.9 11.5-14.5 % Immature Granulocyte % (Auto) 0.4 % Immature Granulocyte # (Auto) 0.04 0.00-0.02 K/uL Sodium Level 132 136-145 mmol/L Potassium Level 4.4 3.5-5.1 mmol/L Chloride Level 94 98-107 mmol/L Carbon Dioxide Level 33 21-32 mmol/L Anion Gap 5.0 3-11 mmol/L Blood Urea Nitrogen 17 7-18 mg/dl Creatinine 0.43 0.60-1.20 mg/dl Est Creatinine Clear Calc Drug Dose 83.3 ml/min Estimated GFR () 108.3 Estimated GFR (Non- 93.4 BUN/Creatinine Ratio 38.6 10-20 Random Glucose 111 70-99 mg/dl Calcium Level 9.3 8.5-10.1 mg/dl Total Bilirubin 0.6 0.2-1 mg/dl Aspartate Amino Transf (AST/SGOT) 14 15-37 U/L Alanine Aminotransferase (ALT/SGPT) 19 12-78 U/L Alkaline Phosphatase 91 45-117 U/L Total Creatine Kinase 40 26-192 U/L Creatine Kinase MB < 1.0 0.5-3.6 ng/ml Creatine Kinase MB Ratio 0-3.0 Troponin I < 0.015 0-0.045 ng/ml Total Protein 7.1 6.4-8.2 gm/dl Albumin 3.8 3.4-5.0 gm/dl Globulin 3.3 2.5-4.0 gm/dl Albumin/Globulin Ratio 1.2 0.9-2 Urine Color YELLOW Urine Appearance CLOUDY CLEAR Urine pH 7.5 4.5-7.5 Urine Specific [place] 1.017 1.000-1.030 Urine Protein 1+ NEG Urine Glucose (UA) NEG NEG Urine Ketones NEG NEG Urine Occult Blood 3+ NEG Urine Nitrite POS NEG Urine Bilirubin NEG NEG Urine Urobilinogen NEG NEG Urine Leukocyte Esterase LARGE NEG Urine WBC (Auto) 10-30 0-5 /hpf Urine RBC (Auto) 10-30 0-4 /hpf Urine Hyaline Casts (Auto) 1-5 0-5 /lpf Urine Epithelial Cells (Auto) >30 0-5 /lpf Urine Bacteria (Auto) 3+ NEG Urine Crystals See comments NONE PRSENT Urine Yeast (Auto) NONE PRSENT Diagnostic Radiology CHEST ONE VIEW PORTABLE HISTORY: 82 years-old Female dyspnea, possible aspiration acute shortness of breath COMPARISON: Chest radiograph 06/19/2016 TECHNIQUE: Portable AP view of the chest FINDINGS: Ventricular peritoneal shunt catheter again noted with calcifications noted along the catheter within the right supraclavicular distribution. Calcification of the aorta. Cardiac silhouette is mildly enlarged. Pulmonary vascular congestion with mild interstitial coarsening. There is no pneumothorax or pleural effusion. There are degenerative changes of the shoulders and spine. Hardware about the left humerus redemonstrated. IMPRESSION: Cardiomegaly and pulmonary vascular congestion with mild interstitial coarsening suggestive of pulmonary edema. 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 Admitted for metabolic encephalopathy likely in the setting of UTI vs. aspiration PNA. Afebrile with elevated BP likely due to discomfort. Chronic hypoxia on 2L of NC at baseline. No WBC elevation. Positive UA. CXR concerning for mild interstitial coarseness. Acute metabolic encephalopathy concerning for aspiration PNA vs. UTI - Afebrile, no WBC elevation - Started on zosyn and daptomycin - Ordered MRSA swab (previously negative) - UA: 3+ occult blood, large leuk est, 10-30 WBC, 3+ bacteria - UCx pending - Monitor for worsening infectious symptoms such as fever - Hold Gtube feeds except medications - Started on mIVF NS at 125mls/hr - GI consulted for concern of aspiration Hyponatremia - Na 132 - Monitor BMP History of chronic staghorn calculus: likely contributing to recurrent UTIs - No evidence of renal failure - Ordered renal US to rule out obstruction/hydronephrosis Spastic paralysis/quadriplegia due to meningioma compression on brain stem with h/o hydrocephalus history status post ROLLER PRINTER shunt - Severe contractures. Bedridden x 11 years, nonverbal - continued home prednisolone Mood disorder - Continued home Sertraline GI - constipation/reflux - Continue home ranitidine and nexium - Hold tube feeds and continue mIVF Chronic constipation - Continued home Miralax DVT Prop: Heparin SQ Code: DNR Attending addendum: I have physically seen this patient, have supervised the medical residents activities, and agree with the H&P unless as otherwise noted. Assessment and Plan: Acute metabolic encephalopathy/aspiration pneumonia/UTI-- Admission to nonmonitored bed. Has allergy to vancomycin. Placed on daptomycin 6 mg/kg IV daily, and Zosyn 3.375 mg IV every 8 hours. Solu-Medrol 40 mg IV every 8 hours. Follow sputum culture, urine culture and sensitivity and blood cultures. Nutrition-- Hold tube feeds. Continue essential medications through tube. Placed on NSS at 125 ML's per hour. Consult GI to assess for possible aspiration via tube. Spastic paralysis/quadriplegia/history hydrocephalus status post ROLLER PRINTER shunt-- Patient's been nonverbal, with severe contractures and bedridden over the past 11 years. She has been on oral prednisolone. Solu-Medrol IV above will serve as stress dose steroids. Remainder of orders and notes as above. Advanced Directives Existing Advance Directive: Yes Existing Living Will: Yes Resuscitation Status VTE Prophylaxis Will order VTE Prophylaxis: Yes
[2017-11-10] MEDS: DAPTOmycin IV 300 MG in SYRINGE 0 ML IV SCH (02:11)
[2017-11-10] MEDS: PIPERACILL/TAZOBAC IV 3.375 GM in DEXTROSE 5% 100ML 100 ML IV SCH ×3 (02:11→21:50)
[2017-11-10] MEDS: SODIUM CHLORIDE 0.9% 1000ML 1,000 ML IV SCH ×2 (06:59→15:38)
[2017-11-10 07:08] LABS: HEMATOCRIT 40.1 % (37-47); HEMOGLOBIN 12.8 g/dL (12.0-16.0); MEAN CELL VOLUME 82.7 fL (80-100); MEAN CORPUSCULAR HEMOGLOBIN 26.4 pg (25-34); MEAN CORPUSCULAR HGB CONC 31.9 g/dl (32-36); PLATELET COUNT 153 K/uL (130-400); RED CELL DISTRIBUTION WIDTH CV 17.9 % (11.5-14.5); RED CELL DISTRIBUTION WIDTH SD 54.6 fL (36.4-46.3); WHITE BLOOD COUNT 11.13 K/uL (4.8-10.8)
[2017-11-10 07:21] LABS: INR 1.1 (0.9-1.1); PTT PATIENT 25.2 SECONDS (21.0-31.0)
[2017-11-10 07:37] LABS: CALCIUM 9.1 mg/dl (8.5-10.1); CREATININE 0.46 mg/dl (0.60-1.20); POTASSIUM 3.8 mmol/L (3.5-5.1)
[2017-11-10] MEDS: HEPARIN SOD 5000 UNIT/0.5 ML CARP SQ SCH ×2 (08:00→20:00)
[2017-11-10] MEDS ORDERED: LANSOPRAZOLE SOLUTAB 30 MG PEG SCH (09:00)
--- NOTE | 2017-11-10 09:03 | DIAGNOSTIC IMAGING REPORT ---
KUB CLINICAL HISTORY: Altered mental status. COMPARISON STUDY: CT of the abdomen and pelvis June 19, 2016 FINDINGS: The ventriculostomy catheter terminates within the left upper quadrant. A large amount stool is noted within the distal colon and rectum. Note is made of mild gaseous distention of the sigmoid colon. A left renal staghorn calculus is noted. There is no evidence for a small bowel obstruction. IMPRESSION: 1. Large amount stool within the rectum and distal colon. 2. Mild gaseous distention of the sigmoid colon without convincing evidence for a bowel obstruction. 3. Left renal staghorn calculus. 4. Partially visualized ventriculoperitoneal catheter which terminates within the left upper quadrant. Electronically signed by: Abiodun Joy M.D. 11/10/2017 7:07 AM Dictated Date/Time: 11/10/2017 7:03 AM
--- NOTE | 2017-11-10 09:04 | DIAGNOSTIC IMAGING REPORT ---
RENAL ULTRASOUND CLINICAL HISTORY: Concern for hydronephrosis. History of staghorn calculus left kidney. COMPARISON STUDY: CT of the abdomen and pelvis June 19, 2016. TECHNIQUE: Sonography of the kidneys and the urinary bladder was performed. FINDINGS: This exam is compromised due to suboptimal penetration. The right kidney measures 8.4 x 3.8 x 4.1 cm and the left measures 10.3 x 4.2 x 3.4 cm. Note is made of right renal cysts which measure up to 4.7 cm. There is no right hydronephrosis. Note is made of a left renal staghorn calculus. Evaluation for hydronephrosis is difficult on this exam and nearly nondiagnostic. There may be mild left hydronephrosis. Size of the spleen is at upper limits of normal. Bladder wall irregular thickening is noted. IMPRESSION: 1. Nearly nondiagnostic evaluation of the left kidney due to suboptimal penetration. Left renal staghorn calculus with possible mild left hydronephrosis. 2. No right hydronephrosis. 3. Irregular bladder wall thickening, a nonspecific finding. Electronically signed by: Abiodun Joy M.D. 11/10/2017 7:22 AM Dictated Date/Time: 11/10/2017 7:19 AM
[2017-11-10] MEDS: prednisoLONE SOD PHOS 5 MG/5 ML GT SCH (09:46)
[2017-11-10] MEDS: SERTRALINE HCL 100 MG TAB PEG SCH (09:49)
[2017-11-10] MEDS: FERROUS SULFATE ELIX 220MG/5ML PO SCH (10:03)
[2017-11-10] MEDS ORDERED: NYSTATIN POWDER 15GM BTL EXT ONE (11:30)
[2017-11-10] MEDS: NYSTATIN POWDER 15GM BTL EXT SCH ×2 (13:00→21:50)
[2017-11-10] MEDS ORDERED: NURSING VERBAL MED ORDER ONE ×2 (15:15→15:45)
[2017-11-10] MEDS: ALBUT/IPRATROP 3MG/0.5MG NEB 3 ML VIAL INH SCH ×2 (15:18→19:46)
[2017-11-10] MEDS: METHYLPREDNISOLONE IV 40 MG in SYRINGE 0 ML IV SCH (15:38)
--- NOTE | 2017-11-10 16:03 | EEG Procedure Note ---
EEG Procedure Note Date of Service Nov 10, 2017. Start / End Times Start Time: 1202 End Time: [address] Kong History 82-year-old with history of seizure activity and shaking spell. currently, she is fairly unresponsive. Home Medication List Scheduled Esomeprazole Magnesium (Nexium), 40 MG PEG BID Ferrous Sulfate (Ferrous Sulfate), 5 ML PEG BID Prednisolone Sod Phos (Prednisolone Sodium Phosp), 2.5 ML PEG QAM Ranitidine HCl (Ranitidine HCl), 20 ML PEG HS Sertraline HCl (Sertraline HCl), 100 MG PEG QAM Scheduled PRN Polyethylene (Miralax), 17 GM PEG DAILY PRN for Constipation Inpatient Medication List Current Inpatient Medications Medications (Trade) Dose Ordered Sig/Lena Route Start Time Stop Time Status Last Admin Dose Admin Piperacillin Sod/ Tazobactam Sod 3.375 gm/Dextrose 115 ml @ 28.75 mls/ hr Q8H IV 11/10/17 02:00 11/20/17 01:59 11/10/17 12:19 28.75 MLS/HR Miscellaneous Information (Consult) 1 ea UD PRN N/A 11/09/17 23:45 12/09/17 23:44 Acetaminophen (Tylenol Soln) 650 mg Q4H PRN PEG 11/09/17 23:45 12/09/17 23:44 Heparin Sodium (Porcine) (Heparin Sq 5000 Unit/0.5ml) 5,000 unit Q12H SQ 11/10/17 08:00 12/10/17 07:59 Sodium Chloride 1,000 ml @ 125 mls/hr Q8H IV 11/09/17 23:45 12/09/17 23:44 11/10/17 15:38 125 MLS/HR Ferrous Sulfate (Feosol Elix) 220 mg BID PO 11/10/17 09:00 12/10/17 08:59 11/10/17 10:03 220 MG Polyethylene (Miralax Powder Packet) 17 gm DAILY PRN PEG 11/09/17 23:45 12/09/17 23:44 Prednisolone Sodium Phosphate (Pediapred Oral Soln) 2.5 mg QAM GT 11/10/17 09:00 12/10/17 08:59 11/10/17 09:46 2.5 MG Ranitidine HCl (zANTac SYRUP) 300 mg HS PO 11/10/17 21:00 12/10/17 20:59 Sertraline HCl (Zoloft Tab) 100 mg QAM PEG 11/10/17 09:00 12/10/17 08:59 11/10/17 09:49 100 MG Lansoprazole (Prevacid Solutab) 30 mg BID PEG 11/10/17 09:00 12/10/17 08:59 11/10/17 09:48 30 MG Daptomycin 300 mg/ Syringe 6 ml @ 3 mls/min Q24H IV 11/10/17 02:00 11/20/17 01:59 11/10/17 02:11 3 MLS/MIN Albuterol/ Ipratropium (Duoneb) 3 ml QIDR INH 11/10/17 12:00 12/10/17 11:59 11/10/17 15:18 3 ML Nystatin (Mycostatin Powder) 1 appln TID EXT 11/10/17 14:00 12/10/17 13:59 11/10/17 13:00 1 APPLN Methylprednisolone Sodium Succinate 40 mg/Syringe 0.64 ml @ 1.5 mls/min Q12H IV 11/10/17 11:30 12/10/17 11:29 11/10/17 15:38 1.5 MLS/MIN Description This is a 21 electrode EEG with a single channel dedicated to limited EKG. The electrodes were placed in accordance with the International 10-20 system. Interpretation The predominant background activity consists of an irregular 5 hertz activity of varying amplitude (low to high) seen overall head regions diffusely. This activity had little attenuation with eye opening and other alerting procedures. A mild to moderate amount of muscle and movement artifact activity contaminate the recording hinder interpretation from time to time but not to any significant degree overall. The generalized slow activity had no focal abnormalities associated. Photic stimulation and hyperventilation were not performed on this bedside EEG. There were frequent "electrode pop" artifacts emanating from CZ and other central head regions from time to time throughout the recording particularly during times of movement. However, There were occasional C3 sharply contoured waveforms and small spikes from time to time without clinical accompaniment. Other times I felt there may have been some fragmented generalized sharp waves without clinical accompaniment. Unfortunately, this was very difficult to be certain in lieu of the other movement and artifact present. In summary, this study shows evidence for a moderate generalized cerebral dysrhythmia without specific focal abnormalities. However, I cannot entirely exclude some fragmented generalized or C3 area sharp waves/ small spikes, without clinical accompaniment. Clinical Correlation The moderate generalized slowing generally correlate with a moderate encephalopathy which could be due to a wide variety of causes and clinical correlation is required. The sharply contorted waveforms mentioned above could indicate potentially epileptogenic activity. Clinical correlation is required.
[2017-11-10] MEDS: RANITIDINE IV 50 MG in DEXTROSE 5% 100ML 100 ML IV SCH (16:58)
--- NOTE | 2017-11-10 18:26 | GASTROINTESTINAL CONSULTATION ---
DATE OF CONSULTATION: 11/10/2017 REASON FOR EVALUATION: Assess gastrostomy tube. HISTORY OF PRESENT ILLNESS: The patient is an 82-year-old with spastic quadriplegia with an inoperable meningioma, who has had brain stem compression and hydrocephalus and has had a BUYING INTER[employer] shunt placed. She has also had chronic kidney infections from staghorn calculus, recurrent UTIs. The patient has had a gastrostomy tube in place for about 13 years. It was initially on the left side of the abdomen, now on the right. She presents with aspiration pneumonia, probably from an inability to handle her oral secretions. She was getting gastrostomy tube feedings at home. Question is whether it is safe to use her gastrostomy tube at this point. PAST MEDICAL HISTORY: Remarkable for spastic quadriplegia, meningioma, brain stem compression, hydrocephalus, staghorn calculus, recurrent urinary tract infections, recurrent aspiration pneumonia, hypertension, chronic constipation. FAMILY HISTORY: Positive for diabetes. SOCIAL HISTORY: The patient lives with family. She is disabled. Does not smoke. MEDICATIONS: Nexium, iron, prednisolone, ranitidine, sertraline, MiraLax. ALLERGIES: FLUCONAZOLE AND VANCOMYCIN. REVIEW OF SYSTEMS: Unobtainable. PHYSICAL EXAM: GENERAL: The patient is lying in bed, unresponsive. VITAL SIGNS: Blood pressure is 154/78, pulse 70. HEENT: The patient's eyes are closed. She is not able to open them on command. RESPIRATORY: She has gurgling respirations. She is contracted. ABDOMEN: Shows left upper quadrant scar from a previous gastrostomy. The current gastrostomy is in the right upper abdomen. Has a tiny bit of granulation tissue to the right lateral aspect of the stoma site. The tube is freely mobile in the tract, but the external bumper has been loosened, which I tightened. The skin integrity around the tube is good. IMPRESSION: The patient has a gastrostomy tube, which appears to be in good position at this time. Her main aspiration risk is her inability to handle her oral secretions, which is not going to change with having a gastrostomy tube in or feeding her through gastrostomy tube. At this point, I would go ahead and resume her gastrostomy tube feedings to provide her with some physiologic nutrition. She may need to have her intravenous fluids diminished as her G-tube feedings are increased to prevent increased fluid overload. If you have any other questions during her hospital stay, please contact us.
[2017-11-10] MEDS: LEVETIRACETAM IV 500 MG in DEXTROSE 5% 100ML 100 ML IV SCH (18:30)
--- NOTE | 2017-11-10 19:34 | Progress Note ---
Subjective Date of Service: Nov 10, 2017. Subjective Pt evaluation today including: conversation w/ family (, daughter, grand -daughter), physical exam, chart review, lab review, review of studies (old CT scans of the head, renal u/s), conversation w/ plan consultant (neurology), review of inpatient medication list Pain: generalized discomfort PO Intake: npo Voiding: incontinence patient's family reports that at baseline she is nonverbal and nonambulatory when she is at her best she has her eyes open and tracks she watches TV she also has long periods of sleeping saw potential seizure activity this past Tuesday she has had a few suspected seizures over the years she uses Glyt[employer] at a rate of 43 mL/hr via PEG at home continuously she had an episode of vomiting this AM after her PEG was used for medications shortly after she had significant respiratory distress ROS unable to be obtained due to nonverbal status Problem List Medical Problems: (1) Altered mental status Status: Acute (2) CHF (congestive heart failure) Status: Acute (3) Constipation Status: Acute (4) Hypoxia Status: Acute (5) Hypoxia Status: Acute (6) Pneumonia Status: Acute (7) Pneumonia Status: Acute (8) Respiratory distress Status: Acute (9) UTI (urinary tract infection) Status: Acute Objective Vital Signs Date Time Temp Pulse Resp B/P (MAP) Pulse Ox O2 Delivery O2 Flow Rate FiO2 11/10/17 15:23 76 18 100 Nasal Cannula 3.0 11/10/17 15:01 36.7 75 16 149/75 (99) 93 Nasal Cannula 3.0 11/10/17 10:39 37.3 91 20 160/89 (112) 88 Nasal Cannula 4.0 11/10/17 08:45 90 Humidified Oxygen 4.0 Non-Rebreather 11/10/17 08:30 Nasal Cannula 2.0 11/10/17 07:41 37.1 85 15 151/74 (99) 92 Nasal Cannula 2.0 11/10/17 01:00 2.0 11/10/17 01:00 36.4 69 20 170/83 (112) 93 Nasal Cannula 2.0 11/10/17 00:00 70 13 152/75 97 Nasal Cannula 2.0 11/09/17 23:00 70 14 154/78 96 Nasal Cannula 2.0 11/09/17 22:00 71 11/09/17 22:00 70 13 174/79 94 Nasal Cannula 2.0 11/09/17 21:00 14 182/81 96 Nasal Cannula 2.0 11/09/17 20:25 37.0 71 13 95 Room Air 11/09/17 20:00 72 176/94 96 Nasal Cannula 2.0 Physical Exam General Appearance: + moderate distress (girgling breath sounds, tachypnea, retractions, copious secretions in oropharynx ), + thin ENT: + pertinent finding (relative macroglossia; MM dry; secretions pooled in back of throat; no gag present) Neck: no JVD Respiratory/Chest: + respiratory distress, + decreased breath sounds, + accessory muscle use, + rhonchi, + wheezing Cardiovascular: regular rate, rhythm, no gallop Abdomen: no organomegaly, + distended Extremities: no pedal edema Neurologic/Psychiatric: + pertinent finding (contractures, nonverbal, occasional moaning ) Skin: + pertinent finding (PEG tube, abdomen, clean; lower abdominal wall rash , intertrigo/yeast) Laboratory Results Last 24 Hours Test 11/09/17 19:35 11/10/17 06:55 Urine Color YELLOW Urine Appearance CLOUDY Urine pH 7.5 Urine Specific [place] 1.017 Urine Protein 1+ Urine Glucose (UA) NEG Urine Ketones NEG Urine Occult Blood 3+ Urine Nitrite POS Urine Bilirubin NEG Urine Urobilinogen NEG Urine Leukocyte Esterase LARGE Urine WBC (Auto) 10-30 /hpf Urine RBC (Auto) 10-30 /hpf Urine Hyaline Casts (Auto) 1-5 /lpf Urine Epithelial Cells (Auto) >30 /lpf Urine Bacteria (Auto) 3+ Urine Crystals See comments Urine Yeast (Auto) White Blood Count 11.13 K/uL Red Blood Count 4.85 M/uL Hemoglobin 12.8 g/dL Hematocrit 40.1 % Mean Corpuscular Volume 82.7 fL Mean Corpuscular Hemoglobin 26.4 pg Mean Corpuscular Hemoglobin Concent 31.9 g/dl RDW Standard Deviation 54.6 fL RDW Coefficient of Variation 17.9 % Platelet Count 153 K/uL Prothrombin Time 11.5 SECONDS Prothromb Time International Ratio 1.1 Activated Partial Thromboplast Time 25.2 SECONDS Partial Thromboplastin Ratio 1.0 Sodium Level 133 mmol/L Potassium Level 3.8 mmol/L Chloride Level 96 mmol/L Carbon Dioxide Level 30 mmol/L Anion Gap 7.0 mmol/L Blood Urea Nitrogen 16 mg/dl Creatinine 0.46 mg/dl Est Creatinine Clear Calc Drug Dose 72.0 ml/min Estimated GFR () 105.9 Estimated GFR (Non- 91.3 BUN/Creatinine Ratio 34.3 Random Glucose 120 mg/dl Calcium Level 9.1 mg/dl Assessment and Plan 82yo female - 1. acute hypoxic respiratory failure - likely due to aspiration pneumonia in setting of severe neurological disease. Continue zosyn. Add IV solumedrol 40mg IV q12h. Add duonebs q6h. Suctioning as needed. I do not think she is in acute diastolic CHF. 2. UTI - await urine cx, continue broad-spectrum IV abx with zosyn & daptomycin. 3. ?seizures - she certainly has the substrate to have seizures given the meningioma and hydrocephalus. EEG with possible seizure activity. Will start keppra 500mg BID IV. 4. 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 meningioma with brainstem compression 6. [employer] shunt status 7. hyponatremia - presumably due to volume depletion in setting of sepsis/ pneumonia/resp failure. Cont hydration but lower fluid rate to 75cc/hr. BMP am. 8. GERD - change zantac via PEG to IV formulation. 9. left-sided staghorn calculus - major risk factor for UTI - no Rx for the stone. 10. sepsis 2nd to pneumonia & UTI - supportive care, IV abx, etc. 11. encephalopathy in setting of baseline vegetative type state - delirium due to infection, +/- seizure, +/- other factors. Supportive care. 12. moderate protein calorie malnutrition - too risky to feed today given her respiratory distress, emesis, etc. Attempt feedings via PEG tomorrow. 13. DVT proph - heparin SC. 14. constipation - miralax. patient's prognosis is very , very poor even if she manages to survive this illness I need to address goals of care with family DNR status if she worsens I would have a low threshold for comfort care/palliative care I would not recommend escalation of care beyond what has already taken place unless it would provide her comfort Continued [facility] stay due to: abnormal vital signs, inadequate po fluid intake, multiple IV medications needed, other (pneumonia, UTI)
[2017-11-10] MEDS ORDERED: RANITIDINE HCL SYRUP 150 MG/10 ML 480ML PO SCH (21:00)
[2017-11-11] VITALS (9 sets, daily range): BP systolic 162–179; BP diastolic 73–80; PULSE 66–71; TEMP 36.5–36.6; O2SAT 92–100
[2017-11-11] MEDS: DAPTOmycin IV 300 MG in SYRINGE 0 ML IV SCH (02:01)
[2017-11-11] MEDS: RANITIDINE IV 50 MG in DEXTROSE 5% 100ML 100 ML IV SCH ×4 (02:05→23:21)
[2017-11-11] MEDS: LEVETIRACETAM IV 500 MG in DEXTROSE 5% 100ML 100 ML IV SCH ×2 (04:03→16:32)
[2017-11-11] MEDS: SODIUM CHLORIDE 0.9% 1000ML 1,000 ML IV SCH ×2 (04:03→16:38)
[2017-11-11] MEDS: METHYLPREDNISOLONE IV 40 MG in SYRINGE 0 ML IV SCH ×2 (04:04→16:32)
[2017-11-11] MEDS: HEPARIN SOD 5000 UNIT/0.5 ML CARP SQ SCH ×2 (07:08→20:00)
[2017-11-11] MEDS: ALBUT/IPRATROP 3MG/0.5MG NEB 3 ML VIAL INH SCH ×4 (07:27→19:00)
[2017-11-11 07:31] LABS: MEAN CORPUSCULAR HGB CONC 31.3 g/dl (32-36)
[2017-11-11 07:42] LABS: HEMATOCRIT 36.1 % (37-47); HEMOGLOBIN 11.3 g/dL (12.0-16.0); RED CELL DISTRIBUTION WIDTH CV 17.5 % (11.5-14.5); RED CELL DISTRIBUTION WIDTH SD 53.4 fL (36.4-46.3); WHITE BLOOD COUNT 9.38 K/uL (4.8-10.8)
[2017-11-11 08:02] LABS: CALCIUM 8.1 mg/dl (8.5-10.1); CREATININE 0.32 mg/dl (0.60-1.20)
[2017-11-11] MEDS: NYSTATIN POWDER 15GM BTL EXT SCH ×3 (08:05→22:04)
[2017-11-11 08:17] LABS: BASO % 0.2 %; BASO ABS # 0.02 K/uL (0-0.2); EOS % 0.4 %; EOS ABS # 0.04 K/uL (0-0.5); IG# 0.05 K/uL (0.00-0.02); LYMPH ABS # 0.28 K/uL (1.2-3.4); MONO % 1.6 %; MONO ABS # 0.15 K/uL (0.11-0.59); NEUT % 94.3 %; NEUT ABS # 8.84 K/uL (1.4-6.5); PLATELET COUNT 118 K/uL (130-400)
--- NOTE | 2017-11-11 08:25 | Clinical Documentation Query ---
TRICE Madrigal : CLINICAL DOCUMENTATION QUERY Please document the POA status of the diagnosis of "sepsis", as this was not entertained on admission with the absence of fever, tachycardia, hypotension, lactic acidemia, leukocytosis, non-assessment of procalcitonin, no IVF boluses, etc. Please clarify as clinically appropriate. Thank you In your clinical opinion is this patient being managed for: ( ) Sepsis due to aspiration pneumonia & UTI, POA ( ) Sepsis due to aspiration pneumonia & UTI, not POA Please clarify and document your clinical opinion in the progress notes and discharge summary. Terms such as "probable", "suspected", "likely", "questionable", "possible", or "still to be ruled out" are acceptable. IF IN AGREEMENT, YOU MUST DOCUMENT ABOVE DIAGNOSTIC STATEMENT IN DAILY PROGRESS NOTES AND DISCHARGE SUMMARY. This document is not part of the patient's record. Thank You, Jason Almaraz, RN [phone]
[2017-11-11] MEDS: prednisoLONE SOD PHOS 5 MG/5 ML GT SCH (09:00)
[2017-11-11] MEDS: SERTRALINE HCL 100 MG TAB PEG SCH (09:00)
--- NOTE | 2017-11-11 14:29 | DIAGNOSTIC IMAGING REPORT ---
KUB HISTORY: Acute generalized abdominal pain with abdominal distention ?ileus? COMPARISON: KUB 11/09/2017 FINDINGS: The ventriculostomy shunt catheter terminates within the left upper quadrant of the abdomen. Large left staghorn calculus redemonstrated. No ureteral calculi. Mild gaseous distention of the sigmoid colon redemonstrated. Bowel gas pattern is nonobstructive. No pneumatosis or pneumoperitoneum. Degenerative changes of the spine and hips with vascular calcifications noted. IMPRESSION: 1. Persistent mild gaseous distention of the sigmoid colon with nonobstructive bowel gas pattern. 2. Large left staghorn calculus redemonstrated. No ureteral calculi are seen. Electronically signed by: Marc Mai M.D. 11/11/2017 2:28 PM Dictated Date/Time: 11/11/2017 2:26 PM
--- NOTE | 2017-11-11 14:32 | DIAGNOSTIC IMAGING REPORT ---
CHEST ONE VIEW PORTABLE HISTORY: aspiration, resp failure, interval change COMPARISON: Chest 11/09/2017. FINDINGS: There are low lung findings. No pneumothorax. The heart remains mildly enlarged. Interstitial thickening persists. Linear densities within the left mid to lower lung zone and right lung base have progressed. There may be a trace left pleural effusion. Right ventriculoperitoneal shunt is again noted. Postoperative changes within the left humerus. IMPRESSION: 1. Progression of the left mid to lower lung zone and right lung base linear densities. This could represent atelectasis or pneumonia. 2. No change in the cardiomegaly and mild interstitial thickening. 3. Possible trace left pleural effusion. Electronically signed by: Talib Rashid M.D. 11/11/2017 2:30 PM Dictated Date/Time: 11/11/2017 2:29 PM
[2017-11-11] MEDS: PIPERACILL/TAZOBAC IV 3.375 GM in DEXTROSE 5% 100ML 100 ML IV SCH ×2 (14:40→22:04)
--- NOTE | 2017-11-11 17:02 | Palliative Care Consultation ---
Consultation Date of Consultation: Nov 11, 2017. Requesting Physician: Dr Goode Attending Physician: Dr Goode Reason for Consultation: Determine goals of care, patient's CODE STATUS is currently DNR. History of Present Illness Patient is an 82-year-old female with a history of meningioma diagnosed in 1998 , status post resection and SHAMPOO ASSISTANT shunt and a second resection in 2004. Patient has spastic quadriplegia. Patient is also receiving palliative care by Dr. Loco through [facility] at home. Family reports patient has been bedbound for the past 14 years as well as G- tube dependent. Patient has been nonverbal since approximately 2011. Family reports patient is able to communicate in a small degree using her eyes and some facial expressions. Patient's past medical history includes recurrent aspiration, seizures, CHF, renal cyst, GERD, hypertension, anemia, staghorn calculus of the left kidney, hydrocephalus-status post SHAMPOO ASSISTANT shunt in 1998. Patient is and lives with her , patient's daughter and granddaughter assist with her care. Patient also has 2 sons. Met with the patient's , daughter, granddaughter at bedside and privately also. Family struggling with making end-of-life decisions. Family reports that patient space lights up when she sees certain family members, and feel that they cannot state that she has no quality of life. Family is struggling with continuing treatment-but have now accepted that hospice care would be welcomed and appropriate. Patient has had altered mental status due to prior UTIs, has always rebounded quickly with IV antibiotics-patient is not rebounding as she has in the past and has some new symptoms consistent with progression of her meningioma. Patient now has urinary retention which is new, also increased oral secretions which are new , and is now unresponsive. After much discussion family feels comfortable with continuing IV antibiotics over the weekend to see if patient responds-they understand that her immune system may not enable her to fight off this infection. They also understand that some of these new symptoms indicate progression of the meningiomas. Family understands that at this point she is not tolerating feeds, but is likely receiving enough fluids with IV fluids and her IV antibiotics to sustain her at this time. Have prolonged conversation with family members regarding options for further care-was able to come to a general consensus regarding her care for the next several days. We will continue to follow and provide support for family-we will reassess patient's condition and prognosis on Angel morning. Past Medical/Surgical History Medical History: Meningioma-diagnosed 1998, CHF, seizures, renal cyst, GERD, G-tube feeds time 13 years, hypertension, anemia, hydrocephalus status post SHAMPOO ASSISTANT shunt, spastic quadriplegia, staghorn calculus left kidney, recurrent aspiration. Surgical History: SHAMPOO ASSISTANT shunt, surgical repair of left humeral fracture, meningioma resection in 1998 , and again in 2004 Family History Positive for diabetes Social History Smoking Status: Never Smoker History of Alcohol Use: No Drug Use: none Marital Status: Housing Status: lives with family (Lives with her , patient's daughter and granddaughter as well as 1 of the sons assist with her care) Occupation Status: retired, disabled Review of Systems ROS unable to obtain-patient unresponsive Allergies Coded Allergies: Fluconazole (Verified Allergy, Intermediate, ?RASH-PT ALSO ON VANCO, ) Vancomycin (Verified Adverse Reaction, Intermediate, ?RASH,?JESSE SYNDROME-PT ALSO ON DIFLUCAN, 11/09/17) Medications Current Inpatient Medications Medications (Trade) Dose Ordered Sig/Lena Route Start Time Stop Time Status Last Admin Dose Admin Piperacillin Sod/ Tazobactam Sod 3.375 gm/Dextrose 115 ml @ 28.75 mls/ hr Q8H IV 11/10/17 02:00 11/20/17 01:59 11/11/17 14:40 28.75 MLS/HR Miscellaneous Information (Consult) 1 ea UD PRN N/A 11/09/17 23:45 12/09/17 23:44 Acetaminophen (Tylenol Soln) 650 mg Q4H PRN PEG 11/09/17 23:45 12/09/17 23:44 Heparin Sodium (Porcine) (Heparin Sq 5000 Unit/0.5ml) 5,000 unit Q12H SQ 11/10/17 08:00 12/10/17 07:59 Sodium Chloride 1,000 ml @ 75 mls/hr [id number] IV 11/09/17 23:45 12/09/17 23:44 11/11/17 16:38 75 MLS/HR Ferrous Sulfate (Feosol Elix) 220 mg BID PO 11/10/17 09:00 12/10/17 08:59 Future Hold 11/10/17 10:03 220 MG Polyethylene (Miralax Powder Packet) 17 gm DAILY PRN PEG 11/09/17 23:45 12/09/17 23:44 Prednisolone Sodium Phosphate (Pediapred Oral Soln) 2.5 mg QAM GT 11/10/17 09:00 12/10/17 08:59 11/10/17 09:46 2.5 MG Ranitidine HCl (zANTac SYRUP) 300 mg HS PO 11/10/17 21:00 12/10/17 20:59 Future Hold Sertraline HCl (Zoloft Tab) 100 mg QAM PEG 11/10/17 09:00 12/10/17 08:59 11/10/17 09:49 100 MG Lansoprazole (Prevacid Solutab) 30 mg BID PEG 11/10/17 09:00 12/10/17 08:59 Future Hold 11/10/17 09:48 30 MG Daptomycin 300 mg/ Syringe 6 ml @ 3 mls/min Q24H IV 11/10/17 02:00 11/20/17 01:59 11/11/17 02:01 3 MLS/MIN Albuterol/ Ipratropium (Duoneb) 3 ml QIDR INH 11/10/17 12:00 12/10/17 11:59 11/11/17 15:47 3 ML Nystatin (Mycostatin Powder) 1 appln TID EXT 11/10/17 14:00 12/10/17 13:59 11/11/17 14:40 1 APPLN Methylprednisolone Sodium Succinate 40 mg/Syringe 0.64 ml @ 1.5 mls/min Q12H IV 11/10/17 11:30 12/10/17 11:29 11/11/17 16:32 1.5 MLS/MIN Levetiracetam 500 mg/Dextrose 105 ml @ 420 mls/hr Q12H IV 11/10/17 16:00 12/10/17 15:59 11/11/17 16:32 420 MLS/HR Ranitidine HCl 50 mg/Dextrose 102 ml @ 200 mls/hr Q8H IV 11/10/17 16:00 12/10/17 15:59 11/11/17 08:05 200 MLS/HR Erythromycin (Erythromycin Oph Oint) 1 appln BID OP 11/11/17 21:00 11/21/17 20:59 Physical Exam Date Time Temp Pulse Resp B/P (MAP) Pulse Ox O2 Delivery O2 Flow Rate FiO2 11/11/17 16:05 36.5 67 16 174/73 (106) 97 Nasal Cannula 11/11/17 15:47 66 18 97 Nasal Cannula 2.0 11/11/17 12:14 71 18 94 Nasal Cannula 2.0 11/11/17 08:16 36.5 71 16 179/76 (110) 92 Nasal Cannula 2.0 11/11/17 07:30 Nasal Cannula 2.0 11/11/17 07:28 66 20 95 Nasal Cannula 2.0 11/11/17 00:20 100 Nasal Cannula 2.0 11/10/17 23:03 36.7 73 18 153/72 (99) 96 Nasal Cannula 2.0 11/10/17 19:49 71 18 98 Nasal Cannula 3.0 11/10/17 17:00 100 Oxymask 2.0 General Appearance: no apparent distress, + pertinent finding (Occasional tongue thrusting and facial movements- ? seizure activity) ENT: + pertinent finding (Unable to assess) Respiratory: no respiratory distress, + pertinent finding (Va's breath sounds, excess upper airway secretions) Cardiovascular: regular rate, rhythm, + pertinent finding (1+ pitting edema lower extremities) Abdomen: + pertinent finding (Decreased bowel sounds) Musculoskeletal: hypertonicity (Spastic quadriplegia with contractures) Neurologic/Psychiatric: + pertinent finding (Unresponsive to voice and touch) Skin: warm/dry Laboratory Results Last 24 Hours Test 11/11/17 07:14 White Blood Count 9.38 K/uL Red Blood Count 4.35 M/uL Hemoglobin 11.3 g/dL Hematocrit 36.1 % Mean Corpuscular Volume 83.0 fL Mean Corpuscular Hemoglobin 26.0 pg Mean Corpuscular Hemoglobin Concent 31.3 g/dl Platelet Count 118 K/uL Neutrophils (%) (Auto) 94.3 % Lymphocytes (%) (Auto) 3.0 % Monocytes (%) (Auto) 1.6 % Eosinophils (%) (Auto) 0.4 % Basophils (%) (Auto) 0.2 % Neutrophils # (Auto) 8.84 K/uL Lymphocytes # (Auto) 0.28 K/uL Monocytes # (Auto) 0.15 K/uL Eosinophils # (Auto) 0.04 K/uL Basophils # (Auto) 0.02 K/uL RDW Standard Deviation 53.4 fL RDW Coefficient of Variation 17.5 % Immature Granulocyte % (Auto) 0.5 % Immature Granulocyte # (Auto) 0.05 K/uL Platelet Estimate DECREASED Red Blood Cell Morphology Unremarkable Sodium Level 134 mmol/L Potassium Level 4.0 mmol/L Chloride Level 101 mmol/L Carbon Dioxide Level 28 mmol/L Anion Gap 6.0 mmol/L Blood Urea Nitrogen 13 mg/dl Creatinine 0.32 mg/dl Est Creatinine Clear Calc Drug Dose 103.5 ml/min Estimated GFR () 119.3 Estimated GFR (Non- 102.9 BUN/Creatinine Ratio 40.5 Random Glucose 111 mg/dl Calcium Level 8.1 mg/dl Assessment & Plan Palliative Performance Scale: 10 % (1) Palliative care encounter Assessment & Plan: Patient is a palliative care patient through [facility] with Dr. Loco. Family more willing to accept hospice referral with plans to return home under hospice care (2) Meningioma Status: Chronic Assessment & Plan: Diagnosed in 1998-status post resection 2-patient with new onset of seizure activity, urinary retention, and decreased responsiveness. Suspect progression of her meningioma. Patient with hydrocephalus status post SHAMPOO ASSISTANT shunt. (3) New onset seizure Status: Acute Assessment & Plan: New finding-suggests progression of her meningioma (4) G tube feedings Status: Chronic Assessment & Plan: Patient requiring G-tube feeds for the past 13 years-has had recent issues not tolerating her full feeds. Patient now with an ileus- bile NG tube. Patient off feeds at this time, however is receiving IV fluids for hydration. (5) Urinary tract infection Status: Acute Assessment & Plan: UA positive, urine culture still pending. Patient on IV Zosyn and IV daptomycin Family require continued discussion and support regarding medical decision- making. Patient will remain a DNR Counseling and Coordination Time in 1500 Time out 1700 Total time 120 minutes with greater than 50% of the time spent at bedside discussing patient's current status, prognosis, goals of care as well as possible treatment options.
[2017-11-11] MEDS: ERYTHROMYCIN OP OINT 5 MG/GM 3.5 GM TUBE OP SCH (22:04)
[2017-11-11] MEDS ORDERED: NSS + 20MEQ KCL 1000ML 1,000 ML IV SCH (22:28)
[2017-11-11] MEDS ORDERED: PIPERACILL/TAZOBAC CONSULT ACTIVE PRN (22:30)
[2017-11-11] MEDS ORDERED: ONDANSETRON INJ 2 MG/ML 2 ML VIAL IV PRN (22:30)
[2017-11-12] VITALS (7 sets, daily range): BP systolic 173–184; BP diastolic 70–91; PULSE 66–72; TEMP 36.5–36.9; O2SAT 93–98
--- NOTE | 2017-11-12 01:23 | Progress Note ---
Subjective Date of Service: Nov 11, 2017. Subjective Pt evaluation today including: conversation w/ family (, daughter, grand -daughter), physical exam, chart review, lab review, conversation w/ vocational rehab consultant (palliative care), review of inpatient medication list Pain: nothing obvious PO Intake: npo Voiding: cleary catheter in place patient's respiratory status more stable/comfortable than yesterday copious secretions in mouth requiring frequent suctioning staff have noted green bile in PEG tube requiring I/O cath for urinary retention when cleary was placed she had 2 small kidney stones/fragments in the bag patient nonverbal - ROS not obtained 2 visits to the pt's room today - spent 15 minutes during visit #1 and 40 minutes during 2nd visit Problem List Medical Problems: (1) Altered mental status Status: Acute (2) CHF (congestive heart failure) Status: Acute (3) Constipation Status: Acute (4) Hypoxia Status: Acute (5) Hypoxia Status: Acute (6) Pneumonia Status: Acute (7) Pneumonia Status: Acute (8) Respiratory distress Status: Acute (9) UTI (urinary tract infection) Status: Acute Objective Vital Signs Date Time Temp Pulse Resp B/P (MAP) Pulse Ox O2 Delivery O2 Flow Rate FiO2 11/11/17 19:00 68 18 93 Nasal Cannula 3.0 11/11/17 16:30 97 Nasal Cannula 2.0 11/11/17 16:05 36.5 67 16 174/73 (106) 97 Nasal Cannula 11/11/17 15:47 66 18 97 Nasal Cannula 2.0 11/11/17 12:14 71 18 94 Nasal Cannula 2.0 11/11/17 08:16 36.5 71 16 179/76 (110) 92 Nasal Cannula 2.0 11/11/17 07:30 Nasal Cannula 2.0 11/11/17 07:28 66 20 95 Nasal Cannula 2.0 11/11/17 00:20 100 Nasal Cannula 2.0 11/10/17 23:03 36.7 73 18 153/72 (99) 96 Nasal Cannula 2.0 Physical Exam General Appearance: no apparent distress, + pertinent finding (copious secretions ) ENT: + pertinent finding (relative macroglossia; involuntary movements of tongue noted; MM dry) Neck: no JVD Respiratory/Chest: no respiratory distress, no accessory muscle use, + crackles (bases), + rhonchi, + wheezing Cardiovascular: regular rate, rhythm, no gallop, no murmur Abdomen: normal bowel sounds, no organomegaly, + distended, + pertinent finding (PEG tube in place; green bile present in the PEG tube) Extremities: + swelling (left leg ) Neurologic/Psychiatric: + motor weakness (contractures and quadriplegia ) Laboratory Results Last 24 Hours Test 11/11/17 07:14 White Blood Count 9.38 K/uL Red Blood Count 4.35 M/uL Hemoglobin 11.3 g/dL Hematocrit 36.1 % Mean Corpuscular Volume 83.0 fL Mean Corpuscular Hemoglobin 26.0 pg Mean Corpuscular Hemoglobin Concent 31.3 g/dl Platelet Count 118 K/uL Neutrophils (%) (Auto) 94.3 % Lymphocytes (%) (Auto) 3.0 % Monocytes (%) (Auto) 1.6 % Eosinophils (%) (Auto) 0.4 % Basophils (%) (Auto) 0.2 % Neutrophils # (Auto) 8.84 K/uL Lymphocytes # (Auto) 0.28 K/uL Monocytes # (Auto) 0.15 K/uL Eosinophils # (Auto) 0.04 K/uL Basophils # (Auto) 0.02 K/uL RDW Standard Deviation 53.4 fL RDW Coefficient of Variation 17.5 % Immature Granulocyte % (Auto) 0.5 % Immature Granulocyte # (Auto) 0.05 K/uL Platelet Estimate DECREASED Red Blood Cell Morphology Unremarkable Sodium Level 134 mmol/L Potassium Level 4.0 mmol/L Chloride Level 101 mmol/L Carbon Dioxide Level 28 mmol/L Anion Gap 6.0 mmol/L Blood Urea Nitrogen 13 mg/dl Creatinine 0.32 mg/dl Est Creatinine Clear Calc Drug Dose 103.5 ml/min Estimated GFR () 119.3 Estimated GFR (Non- 102.9 BUN/Creatinine Ratio 40.5 Random Glucose 111 mg/dl Calcium Level 8.1 mg/dl Assessment and Plan 82yo female with sepsis (POA) 2nd to UTI and aspiration pneumonia. 1. acute hypoxic respiratory failure - due to aspiration pneumonia in setting of severe neurological disease. Continue zosyn, solumedrol 40mg IV q12h, nebs q6h, suctioning, supportive care. day #3 of IV antibiotics. CXR today with progressive pneumonia. 2. UTI - awaiting urine cx, continue broad-spectrum IV abx with zosyn & daptomycin. d/c latter if no MRSA or enterococcus in urine. 3. ?seizures - she certainly has the substrate to have seizures given the meningioma and hydrocephalus. EEG with possible seizure activity. Cont keppra 500mg BID IV. 4. 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 meningioma with brainstem compression 6. ELECTRO TECH shunt status 7. hyponatremia - presumably due to volume depletion in setting of sepsis/ pneumonia/resp failure. Cont hydration at current rate. Overall improved. BMP am. 8. GERD - IV zantac. 9. left-sided staghorn calculus - major risk factor for UTI - no Rx for the stone. 10. encephalopathy in setting of baseline vegetative type state - delirium due to infection, +/- seizure, +/- other factors. Ongoing. Very lethargic once again today. 11. moderate protein calorie malnutrition - too risky to feed given the bile in the PEG tubing and the KUB x-ray findings today. Keep NPO/nothing via PEG. 12. DVT proph - heparin SC. 13. constipation - miralax. DNR had 2 lengthy discussions with family today at bedside also appreciate Dr. Bell's consultation family and myself have agreed that if she worsens while hospitalized we simply transition to palliative care/comfort care measures we also agreed to observe for another 1-2 days if she fails to improve then we will have additional discussions about palliative care/comfort care Dr. Bell to see again on Tuesday total time today over 2 visits -- about 75 minutes with greater than 50% spent counseling the pt's family Continued [facility] stay due to: abnormal vital signs, inadequate po fluid intake, multiple IV medications needed, other (pneumonia, UTI)
[2017-11-12] MEDS: DAPTOmycin IV 300 MG in SYRINGE 0 ML IV SCH (02:13)
[2017-11-12] MEDS: LEVETIRACETAM IV 500 MG in DEXTROSE 5% 100ML 100 ML IV SCH ×2 (03:35→16:03)
[2017-11-12] MEDS: METHYLPREDNISOLONE IV 40 MG in SYRINGE 0 ML IV SCH ×2 (03:35→16:02)
[2017-11-12] MEDS: PIPERACILL/TAZOBAC IV 3.375 GM in DEXTROSE 5% 100ML 100 ML IV SCH ×3 (05:40→21:03)
[2017-11-12] MEDS: SODIUM CHLORIDE 0.9% 1000ML 1,000 ML IV SCH ×2 (05:40→19:46)
[2017-11-12] MEDS ORDERED: PIPERACILL/TAZOBAC IV 3.375 GM in DEXTROSE 5% 100ML 100 ML IV SCH (06:00)
[2017-11-12] MEDS: ALBUT/IPRATROP 3MG/0.5MG NEB 3 ML VIAL INH SCH ×4 (07:00→18:54)
[2017-11-12 07:20] LABS: MEAN CORPUSCULAR HGB CONC 31.2 g/dl (32-36)
[2017-11-12 07:49] LABS: HEMATOCRIT 34.9 % (37-47); HEMOGLOBIN 10.9 g/dL (12.0-16.0); MEAN CELL VOLUME 83.5 fL (80-100); MEAN CORPUSCULAR HEMOGLOBIN 26.1 pg (25-34); RED CELL DISTRIBUTION WIDTH CV 17.4 % (11.5-14.5); RED CELL DISTRIBUTION WIDTH SD 53.3 fL (36.4-46.3); WHITE BLOOD COUNT 8.21 K/uL (4.8-10.8)
[2017-11-12 07:50] LABS: MEAN PLATELET VOLUME 11.3 fL (7.4-10.4); PLATELET COUNT 115 K/uL (130-400)
[2017-11-12 07:53] LABS: CALCIUM 7.7 mg/dl (8.5-10.1); CREATININE 0.3 mg/dl (0.60-1.20); POTASSIUM 3.7 mmol/L (3.5-5.1)
[2017-11-12] MEDS: HEPARIN SOD 5000 UNIT/0.5 ML CARP SQ SCH ×2 (08:00→20:52)
[2017-11-12] MEDS: NYSTATIN POWDER 15GM BTL EXT SCH ×3 (08:17→21:02)
[2017-11-12] MEDS: RANITIDINE IV 50 MG in DEXTROSE 5% 100ML 100 ML IV SCH ×3 (08:17→23:27)
[2017-11-12] MEDS: prednisoLONE SOD PHOS 5 MG/5 ML GT SCH (08:18)
[2017-11-12] MEDS: SERTRALINE HCL 100 MG TAB PEG SCH (08:18)
[2017-11-12] MEDS: ERYTHROMYCIN OP OINT 5 MG/GM 3.5 GM TUBE OP SCH ×2 (08:18→21:02)
[2017-11-12] MEDS: HydrALAZINE HCL 20 MG/ML VIAL IV. PRN ×2 (09:05→23:27)
--- NOTE | 2017-11-12 12:32 | Hospitalist Progress Note ---
Hospitalist Progress Note Date of Service Nov 12, 2017. Subjective Pt evaluation today including: conversation w/ family Voiding: cleary catheter in place Pt nonverbal but does open eyes. Family at bedside think she is a little more alert today. Still a lot of clear secretions coming from mouth. Discussed goals of care and possibility of restarting feeds in the next 1-2 days if pt continues to be more alert with knowing the risk of aspiration still present. Additional Comments: not obtainable due to nonverbal state Objective Vital Signs Date Time Temp Pulse Resp B/P (MAP) Pulse Ox O2 Delivery O2 Flow Rate FiO2 11/12/17 11:09 68 18 96 Nasal Cannula 3.0 11/12/17 09:23 Room Air 11/12/17 07:04 66 18 97 Nasal Cannula 3.0 11/12/17 06:57 36.6 67 16 180/91 (120) 98 3.0 11/11/17 23:28 Nasal Cannula 3.0 11/11/17 22:50 36.6 70 16 162/80 (107) 97 Nasal Cannula 2.0 11/11/17 19:00 68 18 93 Nasal Cannula 3.0 11/11/17 16:30 97 Nasal Cannula 2.0 11/11/17 16:05 36.5 67 16 174/73 (106) 97 Nasal Cannula 11/11/17 15:47 66 18 97 Nasal Cannula 2.0 Physical Exam General Appearance: WD/WN, no apparent distress Eyes: normal inspection, EOMI, sclerae normal ENT: + pertinent finding (tongue protruding and has a white coating, appears dry) Neck: trachea midline Respiratory/Chest: no respiratory distress, no accessory muscle use, + crackles (at bases bilat), + pertinent finding (audible gurgling sounds in upper airways ) Cardiovascular: regular rate, rhythm, + systolic murmur Abdomen: normal bowel sounds, non tender, soft (and with PEG tube in place) Extremities: no calf tenderness Neurologic/Psychiatric: alert (at times opens eyes, does shake head "no" when granddaughter asks pt if she's hungry) Skin: normal color, warm/dry, no rash Laboratory Results Last 24 Hours Test 11/12/17 06:41 White Blood Count 8.21 K/uL Red Blood Count 4.18 M/uL Hemoglobin 10.9 g/dL Hematocrit 34.9 % Mean Corpuscular Volume 83.5 fL Mean Corpuscular Hemoglobin 26.1 pg Mean Corpuscular Hemoglobin Concent 31.2 g/dl RDW Standard Deviation 53.3 fL RDW Coefficient of Variation 17.4 % Platelet Count 115 K/uL Mean Platelet Volume 11.3 fL Sodium Level 136 mmol/L Potassium Level 3.7 mmol/L Chloride Level 102 mmol/L Carbon Dioxide Level 27 mmol/L Anion Gap 7.0 mmol/L Blood Urea Nitrogen 9 mg/dl Creatinine 0.30 mg/dl Est Creatinine Clear Calc Drug Dose 110.4 ml/min Estimated GFR () 121.9 Estimated GFR (Non- 105.1 BUN/Creatinine Ratio 31.2 Random Glucose 108 mg/dl Calcium Level 7.7 mg/dl Magnesium Level 2.0 mg/dl Assessment and Plan Pt is an 82yo female with sepsis (POA) 2nd to UTI and aspiration pneumonia. 1. acute hypoxic respiratory failure - due to aspiration pneumonia in setting of severe neurological disease. Slightly more alert today but still with obvious aspiration ongoing Continue zosyn, solumedrol 40mg IV q12h, nebs q6h, suctioning, supportive care. day #4 of IV antibiotics. CXR repeat with progressive pneumonia. if continues to be more alert, could consider restarting low dose continuous tube feeds and family aware after very lengthy discussion that this will not prevent her from aspirating, but would provide nutrition 2. UTI - urine cx negative, remains on broad-spectrum IV abx with zosyn & daptomycin for PNA. -can d/c Daptomycin tomorrow as there is no MRSA or enterococcus in urine. 3. ?seizures - she certainly has the substrate to have seizures given the meningioma and hydrocephalus. EEG with possible seizure activity. Cont keppra 500mg BID IV. 4. 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 meningioma with brainstem compression -perhaps worsening 6. [employer] shunt status 7. hyponatremia - presumably due to volume depletion in setting of sepsis/ pneumonia/resp failure. Resolved today - Cont hydration at current rate given no feeds at this time. 8. GERD - IV zantac. 9. left-sided staghorn calculus - major risk factor for UTI - no Rx for the stone. 10. encephalopathy in setting of baseline vegetative type state - delirium due to infection, +/- seizure, +/- other factors. Ongoing, but slightly improved as per family today -treating infection, seizures 11. moderate protein calorie malnutrition - too risky to feed given the bile in the PEG tubing and the KUB x-ray findings, but did have multiple BMs 2 days ago. Keep NPO/nothing via PEG, but consider restarting feeds in the next 1-2 days as has not had any nutrition in 3 days now 12. DVT proph - heparin SC. 13. constipation - miralax. DNR had a lengthy discussion with family today at bedside also appreciate Dr. Bell's consultation family and myself have agreed that if she worsens while hospitalized we simply transition to palliative care/comfort care measures we also agreed to observe for another 1-2 days if she fails to improve then we will have additional discussions about palliative care/comfort care Dr. Bell to see again on Tuesday
[2017-11-12] MEDS: NYSTATIN SUSP 500,000 U/5 ML UDC PO SCH ×3 (13:31→21:02)
[2017-11-13] VITALS (9 sets, daily range): BP systolic 156–197; BP diastolic 66–85; PULSE 68–86; TEMP 36.9; O2SAT 93–99
[2017-11-13] MEDS: DAPTOmycin IV 300 MG in SYRINGE 0 ML IV SCH (01:57)
[2017-11-13] MEDS: LEVETIRACETAM IV 500 MG in DEXTROSE 5% 100ML 100 ML IV SCH ×2 (03:36→17:28)
[2017-11-13] MEDS: METHYLPREDNISOLONE IV 40 MG in SYRINGE 0 ML IV SCH (03:36)
[2017-11-13] MEDS: PIPERACILL/TAZOBAC IV 3.375 GM in DEXTROSE 5% 100ML 100 ML IV SCH ×3 (05:45→21:35)
[2017-11-13 07:09] LABS: HEMATOCRIT 36.3 % (37-47); HEMOGLOBIN 11.2 g/dL (12.0-16.0); MEAN CELL VOLUME 84.2 fL (80-100); MEAN CORPUSCULAR HGB CONC 30.9 g/dl (32-36); MEAN PLATELET VOLUME 11.8 fL (7.4-10.4); PLATELET COUNT 170 K/uL (130-400); RED CELL DISTRIBUTION WIDTH CV 17.6 % (11.5-14.5); RED CELL DISTRIBUTION WIDTH SD 53.9 fL (36.4-46.3); WHITE BLOOD COUNT 10.53 K/uL (4.8-10.8)
[2017-11-13] MEDS: ALBUT/IPRATROP 3MG/0.5MG NEB 3 ML VIAL INH SCH ×4 (07:19→19:19)
[2017-11-13] MEDS: HEPARIN SOD 5000 UNIT/0.5 ML CARP SQ SCH ×2 (07:38→20:00)
[2017-11-13] MEDS: RANITIDINE IV 50 MG in DEXTROSE 5% 100ML 100 ML IV SCH ×2 (07:38→16:51)
[2017-11-13] MEDS: SODIUM CHLORIDE 0.9% 1000ML 1,000 ML IV SCH ×2 (07:39→21:41)
[2017-11-13] MEDS: HydrALAZINE HCL 20 MG/ML VIAL IV. PRN (07:39)
[2017-11-13] MEDS: NYSTATIN POWDER 15GM BTL EXT SCH ×3 (09:42→21:04)
[2017-11-13] MEDS: SERTRALINE HCL 100 MG TAB PEG SCH (09:42)
[2017-11-13] MEDS: ERYTHROMYCIN OP OINT 5 MG/GM 3.5 GM TUBE OP SCH ×2 (09:42→21:04)
[2017-11-13] MEDS: NYSTATIN SUSP 500,000 U/5 ML UDC PO SCH ×4 (09:42→21:04)
[2017-11-13] MEDS: prednisoLONE SOD PHOS 5 MG/5 ML GT SCH (09:42)
--- NOTE | 2017-11-13 13:45 | Hospitalist Progress Note ---
Hospitalist Progress Note Date of Service Nov 13, 2017. Subjective Pt evaluation today including: conversation w/ patient, conversation w/ family Family reports patient is much improved today and is alert and is winking upon command. They are happy with this. Did not seem to have any other concerns. They report her audible gurgling sound coming from the upper airway actually sounds better than it usually does at home. When asked patient how she is doing, she winks at me Additional Comments: Difficult to obtain ROS due to nonverbal state Objective Vital Signs Date Time Temp Pulse Resp B/P (MAP) Pulse Ox O2 Delivery O2 Flow Rate FiO2 11/13/17 11:13 72 20 97 Nasal Cannula 3.0 11/13/17 08:24 Nasal Cannula 3.0 11/13/17 07:26 36.9 72 18 197/85 (122) 99 2.0 11/13/17 07:21 73 20 93 Nasal Cannula 2.0 11/13/17 00:32 160/79 (106) 11/12/17 23:38 Nasal Cannula 3.0 11/12/17 22:48 36.9 72 16 184/84 (117) 95 Nasal Cannula 2.0 11/12/17 18:53 69 20 95 Nasal Cannula 2.0 11/12/17 16:00 Nasal Cannula 3.0 11/12/17 15:36 69 22 93 Nasal Cannula 2.0 11/12/17 14:45 36.5 68 18 173/70 (104) 96 2.0 Physical Exam General Appearance: WD/WN, no apparent distress Eyes: normal inspection, sclerae normal ENT: + pertinent finding (Tongue is resting frequently, but appears moister today with less white coating) Neck: trachea midline Respiratory/Chest: no respiratory distress, no accessory muscle use, + pertinent finding (Upper airway rhonchi and gurgling heard anteriorly) Cardiovascular: regular rate, rhythm, + pertinent finding (Trace pitting edema in the right leg) Abdomen: normal bowel sounds, non tender, soft (With PEG tube in place with clear yellow fluid in the tube) Extremities: no calf tenderness Neurologic/Psychiatric: alert, + pertinent finding (Flexion contracture of the hands bilaterally, in a decorticate position on the left and decerebrate on the right) Skin: normal color, warm/dry, no rash Laboratory Results Last 24 Hours Test 11/13/17 06:10 White Blood Count 10.53 K/uL Red Blood Count 4.31 M/uL Hemoglobin 11.2 g/dL Hematocrit 36.3 % Mean Corpuscular Volume 84.2 fL Mean Corpuscular Hemoglobin 26.0 pg Mean Corpuscular Hemoglobin Concent 30.9 g/dl RDW Standard Deviation 53.9 fL RDW Coefficient of Variation 17.6 % Platelet Count 170 K/uL Mean Platelet Volume 11.8 fL Assessment and Plan Pt is an 82yo female with sepsis (POA) 2nd to UTI and aspiration pneumonia. 1. acute hypoxic respiratory failure/aspiration pneumonia in setting of severe neurological disease. Still requiring oxygen, but mental status is significantly improved today. But still with obvious aspiration risk with audible gurgling. Continue zosyn, wean down solumedrol 40mg IV every 24 hours, continue nebs q6h, suctioning, and supportive care. day #5/7 of antibiotics. CXR repeat with progressive pneumonia. -Repeat chest x-ray again in the morning -We will go ahead and restart low dose continuous tube feeds and family aware after very lengthy discussion that this will not prevent her from aspirating, but would provide nutrition 2. UTI - urine cx negative, remains on broad-spectrum IV abx with zosyn and daptomycin MRSA swab is negative, with nitrate in the urine, most likely a gram-negative kevin anyway -can d/c Daptomycin 3. ?seizures - she certainly has the substrate to have seizures given the meningioma and hydrocephalus. EEG with possible seizure activity. Cont keppra 500mg BID IV. 4. 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 -Will likely succumb to this in the future as her meningioma enlarges 5. meningioma with brainstem compression -perhaps worsening 6. BRAZER RESISTANCE shunt status 7. hyponatremia - presumably due to volume depletion in setting of sepsis/ pneumonia/resp failure. Resolved -Decreasing IV fluids to 50 ML's per hour and starting tube feeds today 8. GERD - IV zantac for now and transition to per PEG tube if tolerating feeds by tomorrow 9. left-sided staghorn calculus - major risk factor for UTI - no Rx for the stone. Calcium oxalate crystals seen in urinalysis 10. encephalopathy in setting of baseline vegetative type state - delirium due to infection, +/- seizure, +/- other factors. She is improved as per family today -treating infection, seizures as above 11. moderate protein calorie malnutrition -initially thought too risky to feed given the bile in the PEG tubing and the KUB x-ray findings, but did have multiple BMs 3 days ago. Abdomen is soft today and her mental status is more alert -Restart fiber source HN at 10 mL's per hour 24 hours and then go by 5 ML's per hour every 6 hours until goal of 50 ML's per hour -Appreciate dietary consultation -Reducing IV fluids to 50 ML's per hour 12. DVT proph - heparin SC. 13. constipation - miralax as needed. DNR had a lengthy discussion with family today at bedside also appreciate Dr. Bell's consultation family and myself have agreed that if she worsens while hospitalized we simply transition to palliative care/comfort care measures in the future if has recurrent aspiration Dr. Bell to see again on Tuesday
[2017-11-13] MEDS ORDERED: FIBERSOURCE HN 1000ML BAG PO SCH (14:30)
[2017-11-13] MEDS: FIBERSOURCE HN 1000ML BAG PO SCH (16:55)
[2017-11-14] VITALS (12 sets, daily range): BP systolic 149–201; BP diastolic 66–96; PULSE 70–85; TEMP 36.1–37; O2SAT 94–99
[2017-11-14] MEDS: RANITIDINE IV 50 MG in DEXTROSE 5% 100ML 100 ML IV SCH (00:27)
[2017-11-14] MEDS ORDERED: METHYLPREDNISOLONE IV 40 MG in SYRINGE 0 ML IV SCH (04:00)
[2017-11-14] MEDS: LEVETIRACETAM IV 500 MG in DEXTROSE 5% 100ML 100 ML IV SCH ×2 (04:01→16:38)
[2017-11-14 05:47] LABS: HEMATOCRIT 36.4 % (37-47); HEMOGLOBIN 11.3 g/dL (12.0-16.0); MEAN CELL VOLUME 84.1 fL (80-100); MEAN CORPUSCULAR HEMOGLOBIN 26.1 pg (25-34); RED CELL DISTRIBUTION WIDTH CV 17.6 % (11.5-14.5); RED CELL DISTRIBUTION WIDTH SD 54.4 fL (36.4-46.3); WHITE BLOOD COUNT 8.84 K/uL (4.8-10.8)
[2017-11-14] MEDS: PIPERACILL/TAZOBAC IV 3.375 GM in DEXTROSE 5% 100ML 100 ML IV SCH ×3 (05:50→22:08)
[2017-11-14 06:15] LABS: CALCIUM 7.7 mg/dl (8.5-10.1); CREATININE 0.38 mg/dl (0.60-1.20); POTASSIUM 2.8 mmol/L (3.5-5.1)
[2017-11-14 06:18] LABS: MEAN PLATELET VOLUME 11.2 fL (7.4-10.4); PLATELET COUNT 114 K/uL (130-400)
[2017-11-14 06:20] LABS: BASO % 0.3 %; BASO ABS # 0.03 K/uL (0-0.2); EOS % 5.2 %; EOS ABS # 0.46 K/uL (0-0.5); IG# 0.07 K/uL (0.00-0.02); LYMPH % 2.5 %; LYMPH ABS # 0.22 K/uL (1.2-3.4); MONO % 7.5 %; MONO ABS # 0.66 K/uL (0.11-0.59); NEUT % 83.7 %
[2017-11-14 06:21] LABS: TOTAL PROTEIN 5.6 gm/dl (6.4-8.2)
[2017-11-14] MEDS: HEPARIN SOD 5000 UNIT/0.5 ML CARP SQ SCH ×2 (07:01→20:00)
[2017-11-14] MEDS: ALBUT/IPRATROP 3MG/0.5MG NEB 3 ML VIAL INH SCH ×4 (07:09→19:32)
--- NOTE | 2017-11-14 07:09 | DIAGNOSTIC IMAGING REPORT ---
CHEST ONE VIEW PORTABLE CLINICAL HISTORY: Aspiration pneumonia COMPARISON STUDY: 11/11/2017 FINDINGS: The cardiac and mediastinal contours remain stable. A shunt catheter is visualized projected over the chest. There is diffuse interstitial thickening. This could be infectious/inflammatory or related to pulmonary vascular congestion. Basilar opacities atelectatic versus inflammatory process.[ IMPRESSION: 1. No change in the preceding study 2. Persistent diffuse interstitial thickening/edema 3. Stable bibasilar opacities atelectatic versus infectious/inflammatory Electronically signed by: Kevin Godwin M.D. 11/14/2017 7:08 AM Dictated Date/Time: 11/14/2017 7:06 AM
[2017-11-14] MEDS: POTASSIUM CHLR 10 MEQ / WTR 100 ML IV SCH ×4 (08:00→12:52)
[2017-11-14] MEDS: NYSTATIN POWDER 15GM BTL EXT SCH ×3 (08:01→21:28)
[2017-11-14] MEDS: HydrALAZINE HCL 20 MG/ML VIAL IV. PRN ×2 (08:02→23:08)
[2017-11-14] MEDS: NYSTATIN SUSP 500,000 U/5 ML UDC PO SCH ×4 (08:16→20:12)
[2017-11-14] MEDS: ERYTHROMYCIN OP OINT 5 MG/GM 3.5 GM TUBE OP SCH ×2 (08:16→20:12)
[2017-11-14] MEDS ORDERED: MAGNESIUM SULFATE 1GM / D5W 100 ML IV STA (08:23)
[2017-11-14] MEDS: SERTRALINE HCL 100 MG TAB PEG SCH (09:45)
[2017-11-14] MEDS: prednisoLONE SOD PHOS 5 MG/5 ML GT SCH (09:45)
[2017-11-14] MEDS: FERROUS SULFATE ELIX 220MG/5ML PO SCH (10:26)
[2017-11-14] MEDS: FIBERSOURCE HN 1000ML BAG PO SCH ×2 (10:26→16:55)
[2017-11-14] MEDS ORDERED: HydrALAZINE HCL 20 MG/ML VIAL IV. STA (11:26)
[2017-11-14] MEDS ORDERED: MoRPHine SULFATE 2 MG/ML CARP IV PRN (11:30)
--- NOTE | 2017-11-14 15:43 | Palliative Care Progress Note ---
Palliative Care Progress Note Date of Service Nov 14, 2017. Subjective Pt evaluation today including: conversation w/ family, physical exam, chart review, conversation w/ bilingual sales consultant, review of inpatient medication list Pain: None on exam, patient recently received her first dose of IV morphine PO Intake: Patient is n.p.o., on G-tube trickle feeds Voiding: cleary catheter in place Review of Systems Unable to obtain, patient minimally responsive. Patient will open eyes briefly and responds to touch/voice. Objective Vital Signs Date Time Temp Pulse Resp B/P (MAP) Pulse Ox O2 Delivery O2 Flow Rate FiO2 11/14/17 15:03 71 20 96 Nasal Cannula 2.0 11/14/17 14:46 36.1 77 16 161/66 (97) 94 Nasal Cannula 11/14/17 13:00 149/74 (99) 11/14/17 11:18 75 20 97 Nasal Cannula 2.0 11/14/17 10:45 201/96 (131) 199/93 (128) 11/14/17 09:00 176/72 (106) 11/14/17 08:00 188/75 (112) 11/14/17 07:30 Nasal Cannula 3.0 11/14/17 07:09 71 20 97 Nasal Cannula 2.0 11/14/17 06:53 36.7 70 15 200/87 (124) 99 Nasal Cannula 2.0 11/14/17 00:16 Nasal Cannula 3.0 11/13/17 23:30 36.9 74 14 167/73 (104) 94 Nasal Cannula 3.0 11/13/17 19:25 79 20 96 Nasal Cannula 2.0 11/13/17 16:10 Nasal Cannula 3.0 Physical Exam General Appearance: no apparent distress Eyes: + pertinent finding (Patient only opens her eyes briefly, gaze unfocused) Respiratory/Chest: no respiratory distress, + decreased breath sounds Cardiovascular: regular rate, rhythm, + pertinent finding (1+ pitting edema lower extremities) Abdomen: + pertinent finding (No grimace with palpation) Extremities: + pertinent finding (Increased tone, contractures) Neurologic/Psychiatric: + pertinent finding (Minimally responsive) Skin: + pertinent finding (No increased pallor) Laboratory Results Last 24 Hours Test 11/14/17 00:17 11/14/17 05:22 Bedside Glucose 95 mg/dl White Blood Count 8.84 K/uL Red Blood Count 4.33 M/uL Hemoglobin 11.3 g/dL Hematocrit 36.4 % Mean Corpuscular Volume 84.1 fL Mean Corpuscular Hemoglobin 26.1 pg Mean Corpuscular Hemoglobin Concent 31.0 g/dl Platelet Count 114 K/uL Mean Platelet Volume 11.2 fL Neutrophils (%) (Auto) 83.7 % Lymphocytes (%) (Auto) 2.5 % Monocytes (%) (Auto) 7.5 % Eosinophils (%) (Auto) 5.2 % Basophils (%) (Auto) 0.3 % Neutrophils # (Auto) 7.40 K/uL Lymphocytes # (Auto) 0.22 K/uL Monocytes # (Auto) 0.66 K/uL Eosinophils # (Auto) 0.46 K/uL Basophils # (Auto) 0.03 K/uL RDW Standard Deviation 54.4 fL RDW Coefficient of Variation 17.6 % Immature Granulocyte % (Auto) 0.8 % Immature Granulocyte # (Auto) 0.07 K/uL Platelet Estimate NORMAL Ovalocytes 1+ Sodium Level 138 mmol/L Potassium Level 2.8 mmol/L Chloride Level 102 mmol/L Carbon Dioxide Level 29 mmol/L Anion Gap 7.0 mmol/L Blood Urea Nitrogen 7 mg/dl Creatinine 0.38 mg/dl Est Creatinine Clear Calc Drug Dose 95.2 ml/min Estimated GFR () 112.7 Estimated GFR (Non- 97.3 BUN/Creatinine Ratio 17.9 Random Glucose 115 mg/dl Calcium Level 7.7 mg/dl Phosphorus Level 2.0 mg/dl Magnesium Level 1.8 mg/dl Total Bilirubin 0.6 mg/dl Direct Bilirubin 0.2 mg/dl Aspartate Amino Transf (AST/SGOT) 14 U/L Alanine Aminotransferase (ALT/SGPT) 22 U/L Alkaline Phosphatase 71 U/L Total Protein 5.6 gm/dl Albumin 3.0 gm/dl Assessment and Plan (1) Palliative care encounter Assessment & Plan: Per family-patient nearly return to her prior baseline over the weekend-patient however less responsive today. Patient with hypertension unresponsive to hydralazine, patient given 1 dose of 1 mg IV morphine for comfort. (2) Meningioma Status: Chronic Assessment & Plan: Suspect increase in size of meningioma-in the brainstem area , patient with new urinary retention and hypertension (3) New onset seizure Status: Acute Assessment & Plan: Family reports no further seizure activity, continue Keppra. (4) G tube feedings Status: Chronic Assessment & Plan: Patient was not tolerating G-tube feeds, ileus appear to have resolved, trickle feeds restarted-? If elevated blood pressure related to pain,? If pain related to tube feeds. Discussed with attending physician (5) Urinary tract infection Status: Acute Assessment & Plan: Patient appeared to improve after 3 days of IV antibiotics- continue IV antibiotics and monitor patient's mental status Palliative Performance Scale: 10 % Continued [facility] stay due to: abnormal vital signs, multiple IV medications needed Discharge planning: home Counseling and Coordination Total time spent 35 minutes with greater than 50% of the time spent at bedside discussing patient's current status, prognosis, goals of care as well as current plan of care.
--- NOTE | 2017-11-14 17:30 | Hospitalist Progress Note ---
Hospitalist Progress Note Date of Service Nov 14, 2017. Subjective Pt evaluation today including: conversation w/ patient, conversation w/ family Patient had a lot of pain this morning and her blood pressure went high when she was getting IV potassium. This resolved with slowing the rate down and giving her IV morphine, as well as some IV hydralazine. Blood pressure is much improved she is much more comfortable. She is alert this evening but has been sleepy all day from the morphine. Granddaughter asking a Pepe catheter can be discontinued and do a trial of void prior to going home Additional Comments: Difficult to obtain due to nonverbal state Objective Vital Signs Date Time Temp Pulse Resp B/P (MAP) Pulse Ox O2 Delivery O2 Flow Rate FiO2 11/14/17 15:03 71 20 96 Nasal Cannula 2.0 11/14/17 14:46 36.1 77 16 161/66 (97) 94 Nasal Cannula 11/14/17 13:00 149/74 (99) 11/14/17 11:18 75 20 97 Nasal Cannula 2.0 11/14/17 10:45 201/96 (131) 199/93 (128) 11/14/17 09:00 176/72 (106) 11/14/17 08:00 188/75 (112) 11/14/17 07:30 Nasal Cannula 3.0 11/14/17 07:09 71 20 97 Nasal Cannula 2.0 11/14/17 06:53 36.7 70 15 200/87 (124) 99 Nasal Cannula 2.0 11/14/17 00:16 Nasal Cannula 3.0 11/13/17 23:30 36.9 74 14 167/73 (104) 94 Nasal Cannula 3.0 11/13/17 19:25 79 20 96 Nasal Cannula 2.0 Physical Exam General Appearance: WD/WN, no apparent distress Eyes: normal inspection, sclerae normal ENT: hearing grossly normal, + pertinent finding (Tongue is moist without coating today) Neck: trachea midline Respiratory/Chest: no respiratory distress, no accessory muscle use, + pertinent finding (Coarse upper airway sounds otherwise clear) Cardiovascular: regular rate, rhythm, no murmur, + pertinent finding (Trace pitting edema the legs bilaterally) Abdomen: normal bowel sounds, non tender, soft (PEG tube in place) Extremities: no calf tenderness Neurologic/Psychiatric: alert Skin: normal color, warm/dry Laboratory Results Last 24 Hours Test 11/14/17 00:17 11/14/17 05:22 Bedside Glucose 95 mg/dl White Blood Count 8.84 K/uL Red Blood Count 4.33 M/uL Hemoglobin 11.3 g/dL Hematocrit 36.4 % Mean Corpuscular Volume 84.1 fL Mean Corpuscular Hemoglobin 26.1 pg Mean Corpuscular Hemoglobin Concent 31.0 g/dl Platelet Count 114 K/uL Mean Platelet Volume 11.2 fL Neutrophils (%) (Auto) 83.7 % Lymphocytes (%) (Auto) 2.5 % Monocytes (%) (Auto) 7.5 % Eosinophils (%) (Auto) 5.2 % Basophils (%) (Auto) 0.3 % Neutrophils # (Auto) 7.40 K/uL Lymphocytes # (Auto) 0.22 K/uL Monocytes # (Auto) 0.66 K/uL Eosinophils # (Auto) 0.46 K/uL Basophils # (Auto) 0.03 K/uL RDW Standard Deviation 54.4 fL RDW Coefficient of Variation 17.6 % Immature Granulocyte % (Auto) 0.8 % Immature Granulocyte # (Auto) 0.07 K/uL Platelet Estimate NORMAL Ovalocytes 1+ Sodium Level 138 mmol/L Potassium Level 2.8 mmol/L Chloride Level 102 mmol/L Carbon Dioxide Level 29 mmol/L Anion Gap 7.0 mmol/L Blood Urea Nitrogen 7 mg/dl Creatinine 0.38 mg/dl Est Creatinine Clear Calc Drug Dose 95.2 ml/min Estimated GFR () 112.7 Estimated GFR (Non- 97.3 BUN/Creatinine Ratio 17.9 Random Glucose 115 mg/dl Calcium Level 7.7 mg/dl Phosphorus Level 2.0 mg/dl Magnesium Level 1.8 mg/dl Total Bilirubin 0.6 mg/dl Direct Bilirubin 0.2 mg/dl Aspartate Amino Transf (AST/SGOT) 14 U/L Alanine Aminotransferase (ALT/SGPT) 22 U/L Alkaline Phosphatase 71 U/L Total Protein 5.6 gm/dl Albumin 3.0 gm/dl Assessment and Plan Pt is an 82yo female with sepsis (POA) 2nd to UTI and aspiration pneumonia. 1. acute on chronic hypoxic respiratory failure/aspiration pneumonia in setting of severe neurological disease. On 2 L nasal cannula at home and so she is back to her baseline oxygen requirement, but mental status is significantly improved. But still with obvious aspiration risk with audible gurgling. Continue zosyn, will now discontinue steroids except for chronic prednisolone, continue nebs q6h, suctioning, and supportive care. day #6/7 of antibiotics. Will switch to liquid Augmentin in the morning to complete a course tomorrow CXR repeat with progressive pneumonia on 11/11. Chest x-ray on 11/14 stable with bibasilar opacities and interstitial thickening -Seems to be tolerating low dose continuous tube feeds and family aware after very lengthy discussion that this will not prevent her from aspirating, but would provide nutrition-we will change goal to 43 mL's per hour which is what she was on at home 2. UTI - urine cx negative, remains on broad-spectrum IV abx with zosyn and previously on daptomycin MRSA swab is negative, with nitrate in the urine, most likely a gram-negative kevin anyway -Daptomycin previously discontinued -Switching Augmentin tomorrow as above 3. ?seizures - she certainly has the substrate to have seizures given the meningioma and hydrocephalus. EEG with possible seizure activity. Cont keppra 500mg BID IV and will switch to PEG tube version tomorrow. 4. 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 -Will likely succumb to this in the future as her meningioma enlarges 5. meningioma with brainstem compression -perhaps worsening 6. NUCLE[employer] P[employer] shunt status 7. hyponatremia - presumably due to volume depletion in setting of sepsis/ pneumonia/resp failure. Resolved -Continue IV fluids 50 ML's per hour and slowly increasing tube feeds today 8. GERD -continue Zantac but change to per PEG tube 9. left-sided staghorn calculus - major risk factor for UTI - no Rx for the stone. Calcium oxalate crystals seen in urinalysis 10. encephalopathy in setting of baseline vegetative type state - delirium due to infection, +/- seizure, +/- other factors. She is improved as per family today -treating infection, seizures as above 11. moderate protein calorie malnutrition -initially thought too risky to feed given the bile in the PEG tubing and the KUB x-ray findings, but did have multiple BMs 3 days ago. Abdomen is soft today and her mental status is more alert -Continue fiber source 1.2 and increase to goal 43 mL's per hour as above -Appreciate dietary consultation 12. DVT proph - heparin SC. 13. constipation - miralax as needed. We will give a dose today 14. Urinary retention-could be from UTI, versus neurogenic bladder? -Family requests a trial of void prior to discharge-if fails, will Place Pepe in for discharge tomorrow DNR had a lengthy discussion with family today at bedside again today also appreciate Dr. Bell's consultation Hopefully discharged home tomorrow and already has palliative group home care in place
[2017-11-14] MEDS: FIBERSOURCE HN 1000ML BAG PEG SCH ×2 (18:00→22:54)
[2017-11-14] MEDS: FERROUS SULFATE ELIX 220MG/5ML PEG SCH (20:15)
[2017-11-14] MEDS ORDERED: RANITIDINE HCL SYRUP 150 MG/10 ML 480ML PEG SCH (21:00)
[2017-11-15] MEDS: SODIUM CHLORIDE 0.9% 1000ML 1,000 ML IV SCH (00:12)
[2017-11-15] MEDS ORDERED: NURSING VERBAL MED ORDER ONE (00:15)
[2017-11-15 00:20] VITALS: BP 172/75
[2017-11-15] MEDS: LEVETIRACETAM IV 500 MG in DEXTROSE 5% 100ML 100 ML IV SCH (04:27)
[2017-11-15] MEDS: PIPERACILL/TAZOBAC IV 3.375 GM in DEXTROSE 5% 100ML 100 ML IV SCH (06:08)
[2017-11-15 06:27] LABS: MEAN CORPUSCULAR HGB CONC 31.2 g/dl (32-36)
[2017-11-15 06:35] LABS: HEMATOCRIT 37.5 % (37-47); HEMOGLOBIN 11.7 g/dL (12.0-16.0); MEAN CELL VOLUME 84.5 fL (80-100); MEAN CORPUSCULAR HEMOGLOBIN 26.4 pg (25-34); RED CELL DISTRIBUTION WIDTH CV 17.6 % (11.5-14.5); RED CELL DISTRIBUTION WIDTH SD 54.3 fL (36.4-46.3); WHITE BLOOD COUNT 9.65 K/uL (4.8-10.8)
[2017-11-15] MEDS: HEPARIN SOD 5000 UNIT/0.5 ML CARP SQ SCH (06:49)
[2017-11-15 06:58] VITALS: PULSE 77; O2SAT 96
[2017-11-15] MEDS: ALBUT/IPRATROP 3MG/0.5MG NEB 3 ML VIAL INH SCH ×3 (06:58→15:09)
[2017-11-15 06:59] LABS: CALCIUM 7.9 mg/dl (8.5-10.1); CREATININE 0.37 mg/dl (0.60-1.20); POTASSIUM 3.3 mmol/L (3.5-5.1)
[2017-11-15 07:03] LABS: TOTAL PROTEIN 5.9 gm/dl (6.4-8.2)
[2017-11-15 07:25] LABS: MEAN PLATELET VOLUME 10.1 fL (7.4-10.4); PLATELET COUNT 121 K/uL (130-400)
[2017-11-15 07:26] LABS: BASO % 0.4 %; BASO ABS # 0.04 K/uL (0-0.2); EOS % 6.3 %; EOS ABS # 0.61 K/uL (0-0.5); IG# 0.13 K/uL (0.00-0.02); LYMPH % 5.8 %; LYMPH ABS # 0.56 K/uL (1.2-3.4); MONO % 12.1 %; MONO ABS # 1.17 K/uL (0.11-0.59); NEUT % 74.1 %; NEUT ABS # 7.14 K/uL (1.4-6.5)
[2017-11-15 07:50] VITALS: BP 169/68; PULSE 77; TEMP 36.5; O2SAT 97
[2017-11-15] MEDS ORDERED: POTASSIUM CHLORIDE 20 MEQ/15 ML UDC PEG STA (08:35)
[2017-11-15] MEDS: SERTRALINE HCL 100 MG TAB PEG SCH (09:00)
[2017-11-15] MEDS: NYSTATIN SUSP 500,000 U/5 ML UDC PO SCH (09:00)
[2017-11-15] MEDS: ERYTHROMYCIN OP OINT 5 MG/GM 3.5 GM TUBE OP SCH (09:00)
[2017-11-15] MEDS: NYSTATIN POWDER 15GM BTL EXT SCH (09:00)
[2017-11-15] MEDS: FERROUS SULFATE ELIX 220MG/5ML PEG SCH (09:00)
[2017-11-15] MEDS: prednisoLONE SOD PHOS 5 MG/5 ML GT SCH (09:00)
[2017-11-15 09:20] VITALS: O2SAT 97
[2017-11-15] MEDS ORDERED: ACET160S3 PEG (10:01)
[2017-11-15] MEDS ORDERED: NYSS5 PO (10:01)
[2017-11-15] MEDS ORDERED: NYSP EXT (10:01)
[2017-11-15] MEDS ORDERED: LEVE100S10 PEG (10:01)
--- NOTE | 2017-11-15 10:05 | Discharge Instructions ---
Discharge Instructions Date of Service Nov 15, 2017. Admission Reason for Admission: Altered Mental Status Discharge Discharge Diagnosis / Problem: Aspiration pneumonia, UTI, urinary retention, seizures Discharge Goals Goal(s): Improve disease control, Diagnostic testing, Therapeutic intervention Activity Recommendations Activity Limitations: resume your previous activity Shower/Bathe: no limitations . Instructions / Follow-Up Instructions / Follow-Up You were admitted with an alteration in your mental status due to a urinary tract infection, and aspiration pneumonia. You also had urinary retention requiring placement of a Pepe catheter. Your condition improved with treatment with antibiotics. Your tube feeds were restarted and will need to be increased slowly each day until back to your goal of 43 mL's per hour. You were also started on Keppra to prevent seizures. Please have the palliative care doctor visit you at the home within 2 weeks after discharge. Current Hospital Diet Patient's current hospital diet: AHA Diet (Heart Healthy) Discharge Diet Recommended Diet: Full Liquid Diet (Tube feeds) Procedures Procedures Performed: Chest x-rays Abdominal x-rays Retroperitoneal ultrasound Pending Studies Studies pending at discharge: no Medical Emergencies . Who to Call and When: Medical Emergencies: If at any time you feel your situation is an emergency, please call 911 immediately. . Non-Emergent Contact Non-Emergency issues call your: Primary Care Provider Call Non-Emergent contact if: temperature is above 101, your pain is not controlled, your pain is worsening, you have any medication questions . . "Provider Documentation" section prepared by Zehra Campa. .
--- NOTE | 2017-11-15 10:14 | Discharge Summary ---
Discharge Summary Date of Service Nov 15, 2017. 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-with contractures and spasticity Tardive dyskinesia Hyponatremia GERD Left-sided staghorn calculus Acute metabolic encephalopathy Moderate protein calorie malnutrition Constipation Urinary retention-suspect from neurogenic bladder Immunizations: Have You Had Influenza Vaccine: Yes History of Tetanus Vaccine?: Unknown History of Pneumococcal: 2009 History of Hepatitis B Vaccine: Unknown Procedures: Multiple chest x-rays Multiple KUBs Retroperitoneal ultrasound EEG Consultations: Neurology Palliative care Medication Reconciliation New Medications: Levetiracetam (Keppra) 100 Mg/Ml Viv 500 MG PEG BID for 30 Days, #300 ML Acetaminophen (Acetaminophen) 160 Mg/5 Ml Viv 650 MG PEG Q4H PRN for Pain or Fever for 30 Days Nystatin (Nystatin) 5 Ml Susp 5 ML PO QID for 11 Days, #220 ML Nystatin (Nystop) 45 Appln/15 Gm Powd 1 APPLN EXT TID for 30 Days, #1 BTL Continued Medications: Esomeprazole Magnesium (Nexium) 40 Mg Capcr 40 MG PEG BID, CAP IN 15ML WATER Ferrous Sulfate (Ferrous Sulfate) 220 Mg/5 Ml Elx 5 ML PEG BID Polyethylene (Miralax) 17 Gm Pow 17 GM PEG DAILY PRN for Constipation for 30 Days, #30 DOSE Prednisolone Sod Phos (Prednisolone Sodium Phosp) 5 Mg/5 Ml Liqd 2.5 ML PEG QAM Ranitidine HCl (Ranitidine HCl) 150 Mg/10 Ml Syrp 20 ML PEG HS Sertraline HCl (Sertraline HCl) 100 Mg Tab 100 MG PEG QAM Discharge Exam Patient resting comfortably, afebrile. Remains on her home 2 L nasal cannula. Family has no complaints. She did develop a little bit of a rash on her thighs since yesterday. Physical Exam General Appearance: WD/WN, no apparent distress Eyes: normal inspection, sclerae normal ENT: hearing grossly normal, + pertinent finding (Tongue is moist without coating today) Neck: trachea midline Respiratory/Chest: no respiratory distress, no accessory muscle use, + pertinent finding (Coarse upper airway sounds but improved from previous otherwise clear) Cardiovascular: regular rate, rhythm, no murmur, + pertinent finding (Trace pitting edema the legs bilaterally) Abdomen: normal bowel sounds, non tender, soft (PEG tube in place) Extremities: no calf tenderness Neurologic/Psychiatric: alert Skin: Macular lacy erythematous blanching rash on anterior thighs today, warm/ dry Unable to obtain ROS due to nonverbal state Hospital Course Pt is an 82yo female with sepsis (POA) 2nd to UTI and aspiration pneumonia. 1. acute on chronic hypoxic respiratory failure/aspiration pneumonia in setting of severe neurological disease. On 2 L nasal cannula at home and so she is back to her baseline oxygen requirement, but mental status is significantly improved. But still with obvious aspiration risk with audible gurgling. Received 7 days of Zosyn, and have since discontinue steroids except for chronic prednisolone, received nebs q6h which do not need to be continued, suctioning, and supportive care. day #7 of antibiotics-given rash developing in the thighs, could possibly be reaction to Zosyn-no need for Augmentin for 1 more dose this evening as originally planned CXR repeat with progressive pneumonia on 11/11. Chest x-ray on 11/14 stable with bibasilar opacities and interstitial thickening -Seems to be tolerating low dose continuous tube feeds and family aware after very lengthy discussion that this will not prevent her from aspirating, but would provide nutrition-we will change goal to 43 mL's per hour which is what she was on at home 2. UTI - urine cx negative, remains on broad-spectrum IV abx with zosyn and previously on daptomycin MRSA swab is negative, with nitrate in the urine, most likely a gram-negative kevin anyway -Daptomycin previously discontinued Completed a course of Zosyn 7 days 3. Suspected partial complex seizures - she certainly has the substrate to have seizures given the meningioma and hydrocephalus. EEG with possible seizure activity. Received Keppra 500mg BID IV and had no further seizure activity and will switch to PEG tube Keppra solution for discharge at the same dose 4. 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 -Will likely succumb to this in the future as her meningioma enlarges 5. meningioma with brainstem compression -perhaps worsening 6. [employer]NA[employer] shunt status 7. hyponatremia - presumably due to volume depletion in setting of sepsis/ pneumonia/resp failure. Resolved -Received IV fluids and slowly increasing tube feeds 8. GERD -continue Zantac per PEG tube 9. left-sided staghorn calculus - major risk factor for UTI - no Rx for the stone. Calcium oxalate crystals seen in urinalysis 10. Acute metabolic encephalopathy in setting of baseline vegetative type state - delirium due to infection, +/- seizure, +/- other factors. She is improved as per family today -treating infection, seizures as above 11. moderate protein calorie malnutrition -initially thought too risky to feed given the bile in the PEG tubing and the KUB x-ray findings, but did have multiple BMs 3 days ago. Abdomen is soft and her mental status is more alert -Continue tube feeds at home and increase to goal 43 mL's per hour as above -Appreciate dietary consultation 12. constipation - miralax daily as needed. 13. Urinary retention-could be from UTI, versus neurogenic bladder? -Family requests a trial of void prior to discharge-if fails, will Place [facility] in for discharge Palliative care consultation appreciated to discuss goals of care-patient already has palliative care physician that makes house calls as well. We will also arrange for home health visiting nurse after discharge Stable for discharge to home Total Time Spent: Greater than 30 minutes This includes examination of the patient, discharge planning, medication reconciliation, and communication with other providers. Discharge Instructions Please refer to the electronic Patient Visit Report (Discharge Instructions) for additional information. Follow-Up With visiting palliative care physician at home within 2 weeks Additional Copies To Marcell Arellano PA-C
[2017-11-15 11:26] VITALS: PULSE 77; O2SAT 94
[2017-11-15 12:48] VITALS: BP 169/68; PULSE 77; TEMP 36.5; O2SAT 94
--- NOTE | 2017-11-15 16:13 | Palliative Care Progress Note ---
Palliative Care Progress Note Date of Service Nov 15, 2017. Subjective Pt evaluation today including: conversation w/ family, physical exam, conversation w/ science consultant, review of inpatient medication list Pain: Patient appears comfortable PO Intake: None, patient G-tube dependent Voiding: cleary catheter in place Review of Systems Constitutional: No fever Patient nonverbal, does not respond to questions. Opens eyes briefly and responds to voice/touch Objective Vital Signs Date Time Temp Pulse Resp B/P (MAP) Pulse Ox O2 Delivery O2 Flow Rate FiO2 11/15/17 12:48 36.5 77 20 94 Nasal Cannula 11/15/17 11:26 77 20 94 Nasal Cannula 2.0 11/15/17 09:20 97 Nasal Cannula 2.0 11/15/17 08:00 Nasal Cannula 2.0 11/15/17 07:50 36.5 77 14 169/68 (101) 97 Nasal Cannula 2.0 11/15/17 06:58 77 20 96 Nasal Cannula 2.0 11/15/17 00:37 Nasal Cannula 2.0 11/15/17 00:20 172/75 (107) 11/14/17 23:08 187/75 (112) 11/14/17 22:45 37.0 85 16 186/83 (117) 97 Nasal Cannula 2.0 11/14/17 19:34 71 20 95 Nasal Cannula 2.0 Physical Exam General Appearance: no apparent distress Eyes: + pertinent finding (Opens eyes briefly and responds to touch) Respiratory/Chest: + decreased breath sounds Cardiovascular: regular rate, rhythm Abdomen: + pertinent finding (No signs of discomfort with palpation) Extremities: + pedal edema Neurologic/Psychiatric: + pertinent finding (Minimally responsive, contractures ) Skin: warm/dry Laboratory Results Last 24 Hours Test 11/15/17 06:12 11/15/17 08:04 White Blood Count 9.65 K/uL Red Blood Count 4.44 M/uL Hemoglobin 11.7 g/dL Hematocrit 37.5 % Mean Corpuscular Volume 84.5 fL Mean Corpuscular Hemoglobin 26.4 pg Mean Corpuscular Hemoglobin Concent 31.2 g/dl Platelet Count 121 K/uL Mean Platelet Volume 10.1 fL Neutrophils (%) (Auto) 74.1 % Lymphocytes (%) (Auto) 5.8 % Monocytes (%) (Auto) 12.1 % Eosinophils (%) (Auto) 6.3 % Basophils (%) (Auto) 0.4 % Neutrophils # (Auto) 7.14 K/uL Lymphocytes # (Auto) 0.56 K/uL Monocytes # (Auto) 1.17 K/uL Eosinophils # (Auto) 0.61 K/uL Basophils # (Auto) 0.04 K/uL RDW Standard Deviation 54.3 fL RDW Coefficient of Variation 17.6 % Immature Granulocyte % (Auto) 1.3 % Immature Granulocyte # (Auto) 0.13 K/uL Platelet Estimate DECREASED Ovalocytes 1+ Sodium Level 137 mmol/L Potassium Level 3.3 mmol/L Chloride Level 101 mmol/L Carbon Dioxide Level 31 mmol/L Anion Gap 5.0 mmol/L Blood Urea Nitrogen 6 mg/dl Creatinine 0.37 mg/dl Est Creatinine Clear Calc Drug Dose 97.8 ml/min Estimated GFR () 113.7 Estimated GFR (Non- 98.1 BUN/Creatinine Ratio 16.8 Random Glucose 125 mg/dl Calcium Level 7.9 mg/dl Phosphorus Level 2.0 mg/dl Magnesium Level 2.1 mg/dl Iron Level 24 mcg/dl Total Iron Binding Capacity 235 mcg/dl Transferrin 179 mg/dl Transferrin % Saturation 10 % Ferritin 69.5 ng/ml Total Bilirubin 0.6 mg/dl Direct Bilirubin 0.2 mg/dl Aspartate Amino Transf (AST/SGOT) 12 U/L Alanine Aminotransferase (ALT/SGPT) 25 U/L Alkaline Phosphatase 73 U/L Total Protein 5.9 gm/dl Albumin 3.0 gm/dl Vitamin B12 Level 1289 pg/mL Folate > 24.00 ng/mL Assessment and Plan (1) Palliative care encounter Assessment & Plan: Discussed at length with daughter and granddaughter as well as patient's prognosis, evidence of progression of her meningioma, and goals of care. Discussed the addition of hospice care at home. (2) Meningioma Status: Chronic Assessment & Plan: Patient with new urinary retention, new suspected seizure activity-signs consistent with progression (3) New onset seizure Status: Acute Assessment & Plan: Patient now on Keppra (4) G tube feedings Status: Chronic Assessment & Plan: Discussed GI tolerance of her feeds-if she did not tolerate them at home, giving bowel rest and restarting them slowly if needed. Encouraged hospice care at home (5) Urinary tract infection Status: Acute Assessment & Plan: Resolved with IV antibiotics Palliative Performance Scale: 10 % Discharge planning: home (Family given information to contact hospice, patient would likely qualify for hospice services.) Counseling and Coordination Total time spent 40 minutes with greater than 50% of the time spent at bedside discussing patient's prognosis, possible signs of decline, as well as goals of care.
== END 2017-11-15 15:27 | disposition home health service (06) | DRG 871 ==
LOC: C.EDB 16:48 → UNDOADMIN 23:50 → C.MSW 23:50 → EDBEDREQ 23:58 → ENRESERV 11-10 00:05
PROVIDERS: ADMIT Hospitalist; ATTEND Family Medicine
DX: A41.9 Sepsis, unspecified organism (principal); J96.21 Acute and chronic respiratory failure with hypoxia; J69.0 Pneumonitis due to inhalation of food and vomit; G93.41 Metabolic encephalopathy; G93.5 Compression of brain; G82.50 Quadriplegia, unspecified; N39.0 Urinary tract infection, site not specified; E87.1 Hypo-osmolality and hyponatremia; E44.0 Moderate protein-calorie malnutrition; Z99.81 Dependence on supplemental oxygen; N31.9 Neuromuscular dysfunction of bladder, unspecified; R33.9 Retention of urine, unspecified; R56.9 Unspecified convulsions; E87.6 Hypokalemia; N20.0 Calculus of kidney; D42.9 Neoplasm of uncertain behavior of meninges, unspecified; F39 Unspecified mood [affective] disorder; K59.09 Other constipation; K21.9 Gastro-esophageal reflux disease without esophagitis; Z66 Do not resuscitate; Z74.01 Bed confinement status; Z93.1 Gastrostomy status; Z98.2 Presence of cerebrospinal fluid drainage device; Z68.24 Body mass index [BMI] 24.0-24.9, adult; Z87.440 Personal history of urinary (tract) infections; Z87.01 Personal history of pneumonia (recurrent); Z79.52 Long term (current) use of systemic steroids; Z79.899 Other long term (current) drug therapy; Z88.1 Allergy status to other antibiotic agents; Z88.8 Allergy status to other drugs, medicaments and biological substances